=== PATIENT | male | born 1955 | race Caucasian/White ===

== ENCOUNTER → 2018-02-13 14:41 | Outpatient (CLI) | payer MEDICARE, SELFPAY ==
--- NOTE | 2018-02-13 14:52 | MR_ITS ---
MR knee RT wo con HISTORY: Knee pain with limited range of motion ITS.REASON: INTERNAL DERANGEMENT OF RIGHT KNEE ORDERING PHYSICIAN: Anni Hennessy MD PATIENT AGE: 62 years Comparison: None TECHNIQUE: Standard multiplanar multiecho sequences are performed without contrast. FINDINGS: The posterior cruciate ligament appears intact. The inferior aspect of the anterior cruciate ligament is not well delineated however, the fibers superiorly are correctly oriented. The collateral ligaments are intact. Patellar tendon and quadriceps tendon are also intact. There is some increase T2 signal of the patellar tendon proximally and distally suggesting tendinopathy/tendinosis. The lateral meniscus has an unremarkable appearance. There is a horizontal tear involving the body of the medial meniscus best detected on the coronal images. The anterior and posterior horns appear intact. There are mild tricompartmental osteoarthritic changes. The patellar cartilage is well preserved. There is a medium size knee joint effusion and there is a small amount of prepatellar edema. Small Osorio's cyst also noted. IMPRESSION: 1. Nondisplaced horizontal tear involves the body of the medial meniscus. The medial meniscus is slightly extruded medially. 2. Tricompartmental osteoarthritis with knee joint effusion. 3. Possible tear versus sprain of the inferior aspect of the anterior cruciate ligament
== END ==
PROVIDERS: PCP Family Medicine; Visit Provider Family Medicine
DX: M23.91 Unspecified internal derangement of right knee (principal)
CPT/HCPCS: 73721

== ENCOUNTER → 2018-06-14 09:21 | Outpatient (CLI) | payer MEDICARE, SELFPAY ==
--- NOTE | 2018-06-14 09:27 | XR_ITS ---
XR chest 2V HISTORY: Previous smoker ITS.REASON: HTN,COPD ORDERING PHYSICIAN: Anni Hennessy MD PATIENT AGE: 62 years COMPARISON: None FINDINGS: The cardiomediastinal silhouette and pulmonary vascularity are within normal limits. Atelectatic or fibrotic changes are present within the lingula. The remaining lungs are clear.. No acute bony abnormalities. IMPRESSION: Atelectatic or fibrotic changes in the lingula otherwise negative
== END ==
PROVIDERS: PCP Family Medicine; Visit Provider Family Medicine
DX: Z00.00 Encounter for general adult medical examination without abnormal findings (principal)
CPT/HCPCS: 71046

== ENCOUNTER 2018-09-04 08:00 | Outpatient (RCR) | payer MEDICARE, SELFPAY | END 2018-09-04 08:05 | disposition home or self-care (01) | LOC: PT 08:00 | PROVIDERS: Visit Provider Orthopaedic Surgery | DX: Z96.651 Presence of right artificial knee joint (principal) | CPT/HCPCS: 97010; 97014; 97016; 97110; 97140; 97163; 97164; G0283 ==

== ENCOUNTER 2019-09-24 14:07 | Emergency (ER) | payer MEDICARE, SELFPAY ==
[2019-09-24 14:20] VITALS: BP 137/78; PULSE 101; RESP 18; TEMP 36.7; O2SAT 97; BMI 41.5
--- NOTE | 2019-09-24 14:26 | XR_ITS ---
PROCEDURE: XR CHEST PORTABLE CLINICAL HISTORY: cough/respiratory symptoms COMPARISON: CXR2V XR chest 2V from 06/14/2018 FINDINGS: The cardiomediastinal silhouette and pulmonary vascularity are within normal limits. There are mild fibrotic changes in the left lung base. The remaining lungs are clear. No acute bony abnormalities. IMPRESSION: Left lower lobe fibrotic changes otherwise negative Dictated by: Lisandro Lanier MD 09/24/2019 14:57 Electronically signed by Lisandro Lanier MD in [place] 09/24/2019 14:57
--- NOTE | 2019-09-24 14:37 | HMH.COUGH ---
Cough Clinic HPI - History of Present Illness Complaint:: 3 days of sudden onset of malaise, fatigue, chest tightness. Some fevers and chills... has not been out much but has been to store... live alone. No rash, no GI issues. No change in smell or taste - cough is dry - no hemoptysis - feels some better today Onset (ago): day(s) Severity: moderate Home Medications: Home Medications Medication Instructions Recorded Confirmed Type Albuterol Sulfate [Albuterol HFA 1 - 2 puffs IH Q4-6H PRN 12/05/18 09/24/19 History Inhaler] Amlodipine Besylate [Amlodipine 10 mg PO DAILY 12/05/18 09/24/19 History 10mg Tab] Esomeprazole Magnesium [Nexium 20 mg PO DAILY 12/05/18 09/24/19 History 24Hr] Furosemide [Furosemide 20mg Tab] 20 mg PO DAILY 12/05/18 09/24/19 History Potassium Chloride [Micro-K 10mEq 10 meq PO DAILY 12/05/18 09/24/19 History cap] Umeclidinium Brm/Vilanterol Tr 1 inh IH DAILY 12/05/18 09/24/19 History [Anoro Ellipta 62.5-25 Mcg INH] lisinopriL [Lisinopril 10mg Tab] 10 mg PO DAILY 12/05/18 09/24/19 History Azithromycin [Zithromax 250mg 250 mg PO DIRECTED #6 tab 09/24/19 Rx tab] Cefdinir [Omnicef 300mg Capsule] 300 mg PO BID #14 cap 09/24/19 Rx predniSONE [Deltasone 20mg 20 mg PO BID 7 Days #14 tab 09/24/19 Rx tablet] Allergies/Adverse Reactions: Allergies Allergy/AdvReac Type Severity Reaction Status Date / Time Penicillins Allergy Verified 12/05/18 11:41 Cough Clinic Triage - Symptoms Fever History: Yes Chills: Yes Myalgia: Yes Nasal Drainage: No Sore Throat: Yes Productive Cough: No Non-productive Cough: Yes Ear or Sinus Pain: Yes Joint Pain: Yes Chest Pain: Yes Rash: No Shortness of Breath: Yes Nausea or Vomitting: No Headache: Yes Abdominal Pain: No Diarrhea: No - Exposure History Foreign Travel: No Direct Contact with COVID-19 Patient: No - Risk Factors Greater than 60 Years Old: Yes COPD: Yes Diabetes: No Heart Disease: No (htn) Home Oxygen Use: No Chronic Renal Disease: No Chronic Liver Disease: No Neurologic/Neurodevelopmental/intellectual disability: No Other Chronic Diseases: No Current Smoker: No Former Smoker: Yes (quit 18 months ago) Cough Clinic History I have reviewed the patient's past medical history: Yes Medical History: Reports:: Congestive Heart Failure, Chronic Obstructive Pulmonary Disease (COPD), Hypertension, Lung Disease Denies:: Diabetes Mellitus Type 1, Diabetes Mellitus Type 2, Internal Pacemaker, Seizures Other Medical History: Reports: Other. Denies: Blood Transfusion Reaction Other Surgeries: Yes: Other. No: Pacemaker Amputation: No Fractures: No - Social History Smoking Status: Never smoker Alcohol Intake: never Alcohol Intake Frequency:: other Substance Use Type: other Occupational Status: other Family Hx:: Unable to obtain ROS Obtained: Yes All systems reviewed & no additional complaints Cough Clinic Exam - General General appearance: alert, in no apparent distress - Head Head exam: atraumatic, normocephalic, normal inspection - Eye Eye exam: Present: normal appearance, PERRL, EOMI - ENT ENT exam: Present: normal exam, normal oropharynx, mucous membranes moist, TM's normal bilaterally, normal external ear exam - Neck Neck exam: Present: normal inspection, full ROM, trachea midline. Absent: meningismus, lymphadenopathy - Chest Chest inspection: Present: normal inspection, symmetric chest wall rise. Absent: tenderness - Respiratory Respiratory exam: Present: prolonged expiratory phase. Absent: respiratory distress - Expanded Respiratory Exam Location: Right: rhonchi, Upper: rhonchi, Lower: rhonchi - Cardiovascular Cardiovascular exam: Present: regular rate, normal rhythm. Absent: JVD - Extremities Exam Extremities exam: Present: normal inspection, full ROM, normal capillary refill. Absent: calf tenderness - Neurological Exam Neurological exam: Present: alert, orie
[2019-09-24 14:40] LABS: Eosinophils % 0.9 % (0.1-12.0); Hematocrit 39.6 % (42.0-52.0); Hemoglobin 14.7 g/dL (14.1-18.0); Lymphocytes % 48.1 % (10-50); Mean Corpuscular HGB Conc 37.2 g/dL (31.8-35.4); Mean Corpuscular Hemoglobin 32.4 pg (27.0-31.2); Mean Corpuscular Volume 87.2 fl (80-94); Mean Platelet Volume 6.8 fl (7.4-10.4); Monocytes % 9.9 % (1.7-9.3); Neutrophils % 40.1 % (37.0-80.0); Platelet Count 287 K/mm3 (142-424); Red Blood Count 4.54 M/mm3 (4.60-6.20); Red Cell Distribution Width 13.8 % (11.5-17.5); White Blood Count 8.7 K/mm3 (4.8-10.8)
[2019-09-24 14:41] LABS: Basophils # 0.1 K/mm3 (0-0.2); Eosinophils # 0.1 K/mm3 (0.0-0.4); Lymphocytes # 4.2 K/mm3 (0.7-4.5); Monocytes # 0.9 K/mm3 (0.1-1.0); Neutrophils # 3.5 K/mm3 (1.8-7.8)
[2019-09-24 15:00] VITALS: BP 137/74; PULSE 101; RESP 18; TEMP 36.7; O2SAT 97
[2019-09-25 16:19] LABS: Covid-19 Nasal PCR Sendout Lex NOT DETECTED
--- NOTE | 2019-09-25 16:45 | PC.NURSE ---
1635 dr. patel notified of negative covid-19 test results 1645 pt notified of negative covid-19 test results
== END 2019-09-24 15:06 | disposition home or self-care (01) ==
PROVIDERS: Emergency Provider Internal Medicine Adolescent Medicine; PCP Family Medicine
DX: J18.9 Pneumonia, unspecified organism (principal); J12.9 Viral pneumonia, unspecified; J44.9 Chronic obstructive pulmonary disease, unspecified; I10 Essential (primary) hypertension; I50.9 Heart failure, unspecified; Z79.899 Other long term (current) drug therapy
CPT/HCPCS: 36415; 71045; 85025; 87275; 87276; 99201; 99213; U0003

== ENCOUNTER → 2020-03-18 11:12 | Outpatient (CLI) | payer MEDICARE, SELFPAY ==
--- NOTE | 2020-03-18 11:19 | XR_ITS ---
PROCEDURE: XR FOOT LT MIN 3V CLINICAL INDICATION: LT FOOT PAIN,LT 5TH MEATARSAL COMPARISON: No exams were available for comparison FINDINGS: No fracture or dislocation. No lytic or blastic change. There is normal mineralization. There is mild deformity of the medial and lateral malleolus not well seen on these films of the foot probably posttraumatic in etiology. Consider follow-up films of the ankle for better evaluation. Otherwise the tarsal bones and metatarsals appear intact. There are 2 tiny bone fragments adjacent to the base of the 5th metatarsal 1 which may be a small accessory bone the other could be an old avulsion chip fracture. There is an accessory navicular bone and normal variation. There is an os trigonum as well. The plantar arch is normal. There are spurs of the calcaneus at the insertion of the Achilles tendon and plantar tendon. IMPRESSION: No acute findings. Suggest follow-up films of the ankle Dictated by: Dr. Almas Prado MD 03/18/2020 11:39 Dr. Almas Prado MD in [place] 03/18/2020 11:39
== END ==
PROVIDERS: PCP Family Medicine; Visit Provider Family Medicine
DX: M79.672 Pain in left foot (principal)
CPT/HCPCS: 73630

== ENCOUNTER 2020-04-13 11:13 | Emergency (ER) | payer MEDICARE, SELFPAY ==
--- NOTE | 2020-04-13 11:22 | ECG_ITS ---
APPROVED REPORT Exam: Resting ECG HR:68 bpm ECG Measurements Heart Rate 68 AXES GA 170 P 70 QRSd 104 QRS 74 QT 406 T 36 QTc 431 Conclusion Normal sinus rhythm Normal ECG Electronically signed by : Sean Remy, 04/14/2020 21:08:38
[2020-04-13 11:36] VITALS: BP 156/67; PULSE 72; RESP 18; O2SAT 97; BMI 42.3
--- NOTE | 2020-04-13 11:37 | HMH.EDGENADL ---
ED Disposition Clinical Impression: Vertigo, peripheral Qualifiers: Laterality: unspecified laterality Qualified Code(s): H81.399 - Other peripheral vertigo, unspecified ear Disposition: Home, Self-Care Condition on Discharge: Good Instructions: DI for Vertigo Additional Instructions: Meclizine, diazepam, and Zofran as prescribed. Be very careful when changing positions and standing after laying down, rise slowly and hold onto furniture or handy. Be very careful going up and down stairs. Return to the emergency room if worsening dizziness, vomiting, or any new symptoms such as visual changes or numbness or weakness of arms or legs. Follow-up with your primary care doctor tomorrow, call for appointment. Prescriptions: diazePAM [Diazepam 2mg tablets] 2 mg PO TID #15 tablet Transmission Status: Received by [id number] Meclizine HCl [Meclizine 25mg Tab] 25 mg PO TID #15 tab Transmission Status: Pending to [facility] Ondansetron [Zofran 4mg ODT] 4 mg PO TIDP PRN #10 tab.rapdis PRN Reason: Nausea And Vomiting Transmission Status: Pending to [facility] Referrals: Anni Hennessy MD [Primary Care Provider] - - Critical Care Critical Care Time: No Attestation: On , the high probability of a clinically significant, sudden or life threatening deterioration of the following system(s) required my full and direct attention, intervention and personal management. The time I documented below is in addition to time spent performing reported procedures but includes the following listed in this critical care notation. Medical Decision Making - Claudio Inquiry Pt receiving controlled substance: No Vital Signs: 04/13/20 11:36 04/13/20 11:58 04/13/20 12:52 Temperature Source Oral Pulse Rate [Right Brachial] 72 70 65 Respiratory Rate 18 Blood Pressure [Right Arm] 156/67 H 137/71 146/62 H Blood Pressure Mean [Right Arm] 96 93 90 Blood Pressure Source [Right Arm] Automatic Cuff Automatic Cuff Automatic Cuff Blood Pressure Position [Right Arm] Sitting Sitting Sitting 02 Sat by Pulse Oximetry 97 93 L 96 Oxygen Delivery Method Room Air Room Air Room Air 04/13/20 13:28 Temperature Source Pulse Rate [Right Brachial] 63 Respiratory Rate Blood Pressure [Right Arm] 142/69 H Blood Pressure Mean [Right Arm] 93 Blood Pressure Source [Right Arm] Automatic Cuff Blood Pressure Position [Right Arm] Sitting 02 Sat by Pulse Oximetry 98 Oxygen Delivery Method Room Air - Lab Data Lab results reviewed: Yes: I reviewed the patient's lab results. Lab Results 04/13/20 11:30: WBC 10.0, RBC 5.48, Hgb 15.9, Hct 47.7, MCV 87.0, MCH 29.0, MCHC 33.4, RDW 13.9, Plt Count 364, MPV 7.8, Neut % (Auto) 60.6, Lymph % (Auto) 32.7, Larue % (Auto) 6.0, Eos % (Auto) 0.3, Baso % (Auto) 0.4, Neut # (Auto) 6.1, Lymph # (Auto) 3.3, Larue # (Auto) 0.6, Eos # (Auto) 0.0, Baso # (Auto) 0.0 04/13/20 11:30: Sodium 140, Potassium 4.1, Chloride 104, Carbon Dioxide 27, Anion Gap 13.1, BUN 17, Creatinine 0.70, Estimated Creat Clear 72, Estimated GFR 114, Est GFR ( Amer) 138, Glucose 136 H, Calcium 9.1, Total Bilirubin 0.5, AST 38, ALT 67, Alkaline Phosphatase 65, Troponin I < 0.01, Total Protein 7.6, Albumin 4.4, Globulin 3.2, Albumin/Globulin Ratio 1.4 Result diagrams: 04/13/20 11:30 04/13/20 11:30 Orders (Tests/Meds): ED MEDICATIONS Generic Name Dose Route Start Last Admin Trade Name Freq PRN Reason Stop Dose Admin Diazepam 2 mg 04/13/20 14:26 Diazepam 10mg/2ml Syringe IV 04/13/20 14:27 ONCE ONE Discontinued Medications Generic Name Dose Route Start Last Admin Trade Name Freq PRN Reason Stop Dose Admin Sodium Chloride 1,000 mls @ 999 mls/hr 04/13/20 12:00 04/13/20 12:04 Sod Chlor 0.9% 1000ml Bag IV 04/13/20 13:00 999 mls/hr .Q1H1M JAMAR Administration Meclizine HCl 25 mg 04/13/20 11:48 04/13/20 12:03 Meclizine 25mg Tablet PO 04/13/20 11:49 25 mg ONCE ONE Administration
--- NOTE | 2020-04-13 11:46 | CT_ITS ---
PROCEDURE: CT HEAD/BRAIN WO CON CLINICAL INDICATION: vertigo COMPARISON: No exams were available for comparison TECHNIQUE: Axial images obtained. All CT scans at the facility use one or more dose reduction, viz: automated exposure control, ma/kV adjustment per patient size (including targeted exams where dose is matched to indication, i.e. head), or iterative reconstruction technique. FINDINGS: No midline shift, mass effect, intracranial hemorrhage, hydrocephalus, or extra-axial fluid collection is evident. Fissures are mildly prominent. The cortical sulci are prominent over the frontal lobes. The calvarium has an unremarkable appearance. No mastoid effusion. The internal auditory canals appear normal bilaterally. No sinus air-fluid level. IMPRESSION: Findings of mild age-appropriate cortical atrophy, no acute intracranial pathology noted Dictated by: Dr. Almas Prado MD 04/13/2020 12:51 Dr. lAmas Prado MD in [place] 04/13/2020 12:51
[2020-04-13 11:58] VITALS: BP 137/71; PULSE 70; O2SAT 93
[2020-04-13 11:58] LABS: Basophils % 0.4 % (0.1-2.0); Eosinophils % 0.3 % (0.1-12.0); Hematocrit 47.7 % (42.0-52.0); Hemoglobin 15.9 g/dL (14.1-18.0); Lymphocytes # 3.3 K/mm3 (0.7-4.5); Lymphocytes % 32.7 % (10-50); Mean Corpuscular HGB Conc 33.4 g/dL (31.8-35.4); Mean Platelet Volume 7.8 fl (7.4-10.4); Monocytes # 0.6 K/mm3 (0.1-1.0); Neutrophils # 6.1 K/mm3 (1.8-7.8); Neutrophils % 60.6 % (37.0-80.0); Platelet Count 364 K/mm3 (142-424); Red Blood Count 5.48 M/mm3 (4.60-6.20); Red Cell Distribution Width 13.9 % (11.5-17.5)
[2020-04-13 12:10] LABS: Alanine Aminotransferase 67 U/L (12-78); Albumin Level 4.4 g/dl (3.5-5.0); Albumin/Globulin Ratio 1.4 (1.1-1.8); Alkaline Phosphatase 65 U/L (38-126); Anion Gap 13.1 mEq/L (5-15); Aspartate Amino Transferase 38 U/L (17-59); Bilirubin,Total 0.5 mg/dl (0.2-1.3); Blood Urea Nitrogen 17 mg/dl (9-20); Calcium 9.1 mg/dl (8.4-10.2); Carbon Dioxide 27 mmol/L (22.0-30.0); Chloride 104 mmol/L (98-107); Creatinine Clearance Estimated 72 mL/min (50-200); Estimated Glomerular Filt Rate 114 ml/min (>60); GFR (African American) 138 ML/MIN (>60); Globulin 3.2 g/dL (1.3-3.2); Glucose 136 mg/dl (74-100); Potassium 4.1 mmoL/L (3.5-5.1); Sodium 140 mmol/L (136-145); Total Protein,Serum 7.6 g/dl (6.3-8.2)
[2020-04-13 12:30] LABS: Troponin I < 0.01 ng/ml (0.00-0.034)
--- NOTE | 2020-04-13 12:44 | PC.NURSE ---
pt returned from rad.
[2020-04-13 12:52] VITALS: BP 146/62; PULSE 65; O2SAT 96
[2020-04-13 13:28] VITALS: BP 142/69; PULSE 63; O2SAT 98
--- NOTE | 2020-04-13 14:15 | PC.NURSE ---
pt ambulated to the bathroom pt feels much but still has some dizziness nausea is gone
[2020-04-13 14:33] VITALS: BP 143/82; PULSE 78; O2SAT 96
[2020-04-13 14:35] VITALS: BP 143/82; PULSE 75; RESP 18; TEMP 36.6; O2SAT 98
== END 2020-04-13 14:45 | disposition home or self-care (01) ==
PROVIDERS: Emergency Provider Emergency Medicine; PCP Family Medicine
DX: H81.399 Other peripheral vertigo, unspecified ear (principal); R73.9 Hyperglycemia, unspecified; I10 Essential (primary) hypertension; J44.9 Chronic obstructive pulmonary disease, unspecified; Z88.0 Allergy status to penicillin; Z79.899 Other long term (current) drug therapy
CPT/HCPCS: 70450; 80053; 84484; 85025; 93005; 96365; 96375; 99283; J2405

== ENCOUNTER → 2020-07-03 08:56 | Outpatient (POV) | payer MEDICARE, SELFPAY | PROVIDERS: Visit Provider Audiologist | DX: Z00.00 Encounter for general adult medical examination without abnormal findings (principal) ==

== ENCOUNTER 2023-12-14 06:27 | Outpatient (CLI) | payer MEDICARE, SELFPAY ==
--- NOTE | 2023-12-14 07:23 | CT_ITS ---
FINAL REPORT TECHNIQUE: Thin section axial images were obtained from skull base to vertex without contrast. Coronal reconstruction images were obtained from the axial data. Exam was performed using dose reduction technique. CLINICAL HISTORY: MIGRAINES FINDINGS: There is no mass effect or midline shift. There is no hydrocephalus. There is no intracranial hemorrhage. The posterior fossa is without acute abnormality. The basilar cisterns are preserved. The soft tissues are without acute abnormality. No acute osseous abnormality is identified. IMPRESSION: No acute intracranial abnormality. Authenticated and [facility]
== END 2023-12-14 23:59 | disposition home or self-care (01) ==
LOC: RAD 06:29
PROVIDERS: PCP Family Medicine; Visit Provider Nurse Practitioner
DX: G43.909 Migraine, unspecified, not intractable, without status migrainosus (principal)
CPT/HCPCS: 70450

== ENCOUNTER 2024-05-07 11:43 | Outpatient (CLI) | payer MEDICARE, SELFPAY | END 2024-05-07 23:59 | disposition home or self-care (01) | LOC: LAB.DROPOF 05-08 14:00 | PROVIDERS: PCP Family Medicine; Visit Provider Family Medicine | DX: R33.9 Retention of urine, unspecified (principal) | CPT/HCPCS: 87086 ==

== ENCOUNTER 2024-06-15 08:49 | Outpatient (CLI) | payer MEDICARE, SELFPAY ==
[2024-06-15 16:49] LABS: Basophils % 0.3 % (0.1-2.0); Eosinophils % 0.2 % (0.1-12.0); Hematocrit 45.3 % (42.0-52.0); Hemoglobin 14.5 g/dL (14.1-18.0); Lymphocytes # 2.3 K/mm3 (0.7-4.5); Lymphocytes % 25.3 % (10-50); Mean Corpuscular Hemoglobin 28.7 pg (27.0-31.2); Mean Corpuscular Volume 89.5 fl (80-94); Monocytes # 0.8 K/mm3 (0.1-1.0); Monocytes % 8.6 % (1.7-9.3); Neutrophils # 5.9 K/mm3 (1.8-7.8); Neutrophils % 65.2 % (37.0-80.0); Platelet Count 334 K/mm3 (142-424); Red Blood Count 5.06 M/mm3 (4.60-6.20); Red Cell Distribution Width 13.8 % (11.5-17.5); White Blood Count 9.1 K/mm3 (4.8-10.8)
[2024-06-15 17:28] LABS: Alanine Aminotransferase 55 U/L (12-78); Albumin Level 4.7 g/dl (3.5-5.0); Albumin/Globulin Ratio 1.9 (1.1-1.8); Alkaline Phosphatase 57 U/L (38-126); Anion Gap 13.7 mEq/L (5-15); Aspartate Amino Transferase 48 U/L (17-59); Bilirubin,Total 0.5 mg/dl (0.2-1.3); Blood Urea Nitrogen 22 mg/dl (9-20); Calcium 9.5 mg/dl (8.4-10.2); Carbon Dioxide 26 mmol/L (22.0-30.0); Chloride 101 mmol/L (98-107); Chol/HDL Ratio 2.3 (1-3.5); Cholesterol 128 mg/dl (140-200); Estimated Glomerular Filt Rate 75 ml/min (>60); GFR (African American) 90 ML/MIN (>60); Globulin 2.5 g/dL (1.3-3.2); Glucose 87 mg/dl (74-100); HDL Cholesterol 55 mg/dl (40-60); Potassium 4.7 mmoL/L (3.5-5.1); Sodium 136 mmol/L (136-145); Total Protein,Serum 7.2 g/dl (6.3-8.2); Triglycerides 65 mg/dl (30-150); VLDL Cholesterol 13 mg/dL (0-40)
[2024-06-15 17:31] LABS: Hemoglobin A1C 5.3 % (4.0-6.0)
[2024-06-15 17:39] LABS: Direct LDL Cholesterol 58.88 mg/dL (100-129)
[2024-06-15 17:59] LABS: Prostate Specific Ag Screen 0.7 ng/ml (0.0-4.0); Thyroid Stimulating Hormone 1.84 uIU/mL (0.465-4.68)
[2024-06-15 18:09] LABS: HIV Combo NEGATIVE (Negative)
[2024-06-15 18:58] LABS: Hepatitis C Ab Qual. W/ RFX NEGATIVE (Negative)
[2024-06-25 13:13] LABS: Free Testosterone (Direct) 3.6 pg/mL (6.6-18.1); Testosterone, Total, LC/MS 290.5 ng/dL (264.0-916.0)
== END 2024-06-15 23:59 | disposition home or self-care (01) ==
LOC: LAB.DROPOF 06-18 08:50
PROVIDERS: PCP Family Medicine; Visit Provider Family Medicine
DX: I10 Essential (primary) hypertension (principal); Z11.4 Encounter for screening for human immunodeficiency virus [HIV]; Z11.59 Encounter for screening for other viral diseases; R79.89 Other specified abnormal findings of blood chemistry; Z12.5 Encounter for screening for malignant neoplasm of prostate
CPT/HCPCS: 80053; 80061; 83036; 84443; 85025; 86803; 87389; G0103

== ENCOUNTER 2024-07-30 10:50 | Outpatient (CLI) | payer MEDICARE, SELFPAY ==
--- NOTE | 2024-07-30 10:53 | XR_ITS ---
FINAL REPORT CLINICAL HISTORY: medial knee pain COMPARISON: None FINDINGS: LEFT KNEE: 3 images of the left knee were obtained. There is no evidence of fracture or dislocation. Mild tricompartment degenerative change is present. No joint effusion is noted. There is no soft tissue abnormality identified. IMPRESSION: Mild tricompartment degenerative change without acute fracture or joint effusion. Reviewed, Interpreted and Dictated by Denilson Chan MD Transcribed by Yamile Suazo Authenticated and [facility]
== END 2024-07-30 23:59 | disposition home or self-care (01) ==
LOC: RAD 10:51
PROVIDERS: PCP Family Medicine; Visit Provider Family Medicine
DX: M25.562 Pain in left knee (principal)
CPT/HCPCS: 73562

== ENCOUNTER 2025-01-17 15:00 | Outpatient (RCR) | payer MEDICARE, SELFPAY | END 2025-01-17 23:59 | disposition home or self-care (01) | LOC: PT.CARL 15:00 | PROVIDERS: PCP Family Medicine; Visit Provider Orthopaedic Surgery | DX: S83.242A Other tear of medial meniscus, current injury, left knee, initial encounter (principal) | CPT/HCPCS: 97110; 97161 ==

== ENCOUNTER 2025-02-07 06:53 | Outpatient (CLI) | payer MEDICARE, SELFPAY ==
--- OUTSIDE RECORDS SUMMARY | 2024-12-29 05:00 | XMS_ITS ---
Author Organization [facility] Address [address] [place] [address] Phone [phone] Care Team Providers Care Prop Worker Name Role Phone Cristiane Osorio Unavailable [phone] Migration, Provider Unavailable Unavailable REASON FOR VISIT EMR-Mo Encounters Encounter Location Date Provider Diagnosis [facility] [address] [place] [address] 12/29/2024 Provider Migration Plan Of Treatment No Information Progress Notes * MARTA RAZODOB:1955 (69 yo M)Acc No.[id number]:12/29/2024 Patient: MARTA LAZO :1955 A ge:69 Y S ex:Male Address:[address] [place] [address], [id number] Subjective: * Chief Complaints: * E MR-Mo * * Date:
--- OUTSIDE RECORDS SUMMARY | 2024-12-30 05:00 | XMS_ITS ---
Author Organization [facility] Address [address] [place] [address] Phone [phone] Care Team Providers Care Sales Appointment Coordinator Name Role Phone Cristiane Osorio Unavailable [phone] Migration, Provider Unavailable Unavailable REASON FOR VISIT E[facility] Medications Medication SIG (Take, Route, Frequency, Duration) Notes Start Date End Date Status Mupirocin 2% Ointment External Active Lisinopril 10 MG Tablet Oral Active Potassium Chloride ER 10 MEQ Tablet Extended Release Oral Active Egixrqdz-Rdlqmbzxs-VF 3.5-28233-9 Suspension Otic Activ e Travel Sickness 25 mg Tablet Chewable Oral *Reorder from [employer] for eRx and Interaction Alerts* Active predniSONE 20 MG Tablet Oral Active amLODIPine Besylate 10 MG Tablet Oral Active Cefdinir 300 MG Capsule Oral Active Cephalexin 500 MG Capsule Oral Active Ondansetron 4 MG Tablet Disintegrating Oral Active Furosemide 20 MG Tablet Oral Active Azithromycin 250 MG Tablet Oral Active diazePAM 2 MG Tablet Oral Active Social History Social History Additional Details Category Social Info Options Details Migrated Social History Migrated Social History Tobacco Years: Unknown if ever smoked 04/23/2020 Encounters Encounter Location Date Provider Diagnosis [address] [address] 12/30/2024 Provider Migration Plan Of Treatment No Information Progress Notes * DUNG MARTADOB:1955 (69 yo M)Acc No.[id number]:12/30/2024 Patient: MARTA LAZO :1955 A ge:69 Y S ex:Male Address:[address] [place] [address], [address] Subjective: * Chief Complaints: * E MR-Mo * Social History: M igrated Social History: M igrated Social History: Tobacco Years: Unknown if ever smoked 04/23/2020. * Medications: T akingamLODIPine Besylate 10 MG Tablet Oral Cefdinir 300 MG Capsule Oral Cephalexin 500 MG Capsule Oral Ondansetron 4 MG Tablet Disintegrating Oral Mupirocin 2% Ointment External Azithromycin 250 MG Tablet Oral Lisinopril 10 MG Tablet Oral Potassium Chloride ER 10 MEQ Tablet Extended Release Oral diazePAM 2 MG Tablet Oral Furosemide 20 MG Tablet Oral predniSONE 20 MG Tablet Oral Bnqqboul-Tofohaopn-YN 3.502955-7 Suspension Otic Travel Sickness 25 mg Tablet Chewable Oral , Notes to Pharmacist: *Reorder from [facility] for eRx and Interaction Alerts*Taking amLODIPine Besylate 10 MG Tablet Oral Taking Cefdinir 300 MG Capsule Oral Taking Cephalexin 500 MG Capsule Oral Taking Ondansetron 4 MG Tablet Disintegrating Oral Taking Mupirocin 2% Ointment External Taking Azithromycin 250 MG Tablet Oral Taking Lisinopril 10 MG Tablet Oral Taking Potassium Chloride ER 10 MEQ Tablet Extended Release Oral Taking diazePAM 2 MG Tablet Oral Taking Furosemide 20 MG Tablet Oral Taking predniSONE 20 MG Tablet Oral Taking Ghnzlenk-Qrwxkmujx-FS 3.518924-9 Suspension Otic Taking Travel Sickness 25 mg Tablet Chewable Oral , Notes to Pharmacist: *Reorder from [facility] for eRx and Interaction Alerts* * * Date:
--- OUTSIDE RECORDS SUMMARY | 2025-01-15 09:43 | XMS_ITS | CCD ---
Author Name Lizzy Skinner NP Address [address] [place] [address] Phone Organization [facility] Phone Care Team Providers Care Grape Grower Name Role Phone Lizzy Skinner NP Primary Care Provider Unavaila ble Unavailable Chronic Care Management Unavaila ble Summary Purpose DataExchange Insurance Providers Payer name Policy type / Coverage type Covered republican ID Effective Begin Date Effective End Date [facility] [id number] Unknown Unknown Family history Father Diagnosis Age At Onset CAD (Coronary Artery Disease) Unknown Mother Diagnosis Age At Onset Diabetes Unknown Social History Social History Element Codes Description Effec tive Dates Marital status Unknown 10/09/2024 Number of children Unknown 3 Number of children in household Unknown 0 10/09/2024 Number of adults in household Unknown 2 10/09/2024 Education level Unknown Some College 10/09/2024 Employment Unknown Retired from Contract[employer] 09/27 Tobacco history Unknown Former User 10/09/[address]: [id number] Never drinks alco hol 10/09/2024 Illegal/Recreational drug history Unknown *Has never used illegal/recreational drugs 10/09/2024 Allergies, Adverse Reactions, Alerts Substance Reaction Codes Entered Date Inactivated Date Status PENICILLINS *not specified Unknown 10/09/2024 No Inactive Date Active *No known food allergies Unknown 10/09/2024 No I nactive Date Active *No known environmental allergies Unknown 10/09/2024 No Inactive Date Active Problems Condition Codes Effective Dates Condition St atus Chronic heart failure with p reserved ejection fraction (HFpEF) ICD-10: I50.32 ICD-9: 428.32 10/09/2024 Active Chronic heart failure with p reserved ejection fraction (HFpEF) ICD-10: I50.32 11/15/2022 Active Chronic pain of both knees ICD-10: M25.5 61 ICD-9: 719.46 10/09/2024 Active 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 ICD-10: I25.119 05/27/2022 Active Encounter for general adult medical examination without abnormal findings ICD-10: Z00.00 ICD-9: V70.9 10/09/2024 Active Hyperlipidemia LDL goal <70 ICD-10: E78.5 11/15/2022 Active Male hypogonadism ICD-10: E29.1 04/02/2024 Active Obstructive sleep apnea, adult ICD-10: G47.33 03/15/20 24 Active Other chronic pain ICD-10: G89.29 10/09/2024 Active Other emphysema ICD-10: J43.8 ICD-9: 492.8 10/09/2024 Active Other emphysema ICD-10: J43.8 09/07/2022 Active Pain in left knee ICD-10: M25.562 10/09/2024 Active Pain in right knee ICD-10: M25.561 10/09/2024 Active Primary hypertension ICD-10: I10 ICD-9: 401.9 10/09/2024 Active Primary hypertension ICD-10: I10 05/27/2022 Active Medications Medication Codes Instructions Start Date Stop Date Status Fill Instructions Anoro Ellipta 62.5 mcg-25 mcg/actuation powder for inhalation RxNorm: 5334841 Take 1 Puff(s) Inhalation every day 5 01/02/20 26 Active lisinopril (PRINIVIL,ZESTRIL ) 20 MG tablet RxNorm: 169319 Take 1 Tablet(s) Oral every day 5 No Stop Date Active atorvastatin 20 mg tablet RxNorm: 682014 Take 1 Tablet(s) Oral every night at bedtime 5 01/02/20 26 Active furosemide (LASIX) 40 MG tablet RxNorm: 897281 Take 1 Tablet(s) Oral every day 5 No Stop Date Active sildenafil (VIAGRA) 50 MG tablet RxNorm: 491860 Take 1 Tablet(s) Oral every day as needed 5 No Stop Date Active sildenafil (VIAGRA) 50 MG tablet RxNorm: 379346 Take 1 Tablet(s) Oral every day as needed 5 09/13/19 25 Inactive furosemide (LASIX) 40 MG tablet RxNorm: 536295 Take 1 Tablet(s) Oral every day 5 09/26/19 25 Inactive atorvastatin (LIPITOR) 40 MG tablet RxNorm: 591826 TAKE 1 TABLET BY MOUTH ONCE DAILY AT NIGHT 5 No Stop Date Active lisinopril (PRINIVIL,ZESTRIL ) 20 MG tablet RxNorm: 054196 Take 1 Tablet(s) Oral every day 4 10/10/19 25 Inactive betamethasone valerate (VALISONE) 0.1 % ointment RxNorm: 493992 Apply 1 Application topically to the appropriate area as directed 2 (Two) Times a Day. 4 No Stop Date Active potassium chloride 10 MEQ CR tablet RxNorm: 415408 Take 1 Tablet(s) Oral every day . 4 No Stop Date Active amLODIPine (NORVASC) 10 MG tablet RxNorm: 328027 Take 1 Tablet(s) Oral every day . 4 No Stop Date Active nitroglycerin (NITROSTAT) 0.4 MG SL tablet RxNorm: 491322 Place 1 tablet under the tongue Every 5 (Five) Minutes As Needed for Chest Pain. Take no more than 3 doses in 15 minutes. 4 No Stop Date Active albuterol sulfate HFA 108 (90 Base) MCG/ACT inhaler RxNorm: 3280926 Inhale 2 puffs As Needed for Wheezing. 3 No Stop Date Active Medication Administered No Medication Administered data Results Observation Observation Code Item Item Code Result Date Service Location Hemoccult Screening Immunoassay G0328 Fecal Occult Blood Test (FOBT) Screening 43965-6 SEE COMMENT 11/14/19 [facility] [address] [place] [address] Procedures Procedure Codes Date Functional Status Assessed CPT-4: 1170F 10/09 MED LIST DOCD IN [facility] CPT-4: 1159F 10/09/2024 RVW MEDS BY RX/DR IN [facility] CPT-4: 1160F 2024 Screening for clinical depre ssion is negative, follow-up plan not required CPT-4: G8510 10/09/2024 Most recent systolic blood pressure 130 to 139 mm CPT-4: 3075F 10/09/2024 Most recent diastolic blood pressure 80-89 mm hg CPT-4: 3079F 10/09/2024 Fecal Occult Blood Test (FOBT) Screening CPT-4: G0328 Unknown Vital Signs Date Vital 10/09/2024 Blood Pressure 1: 138/80 Code: 8480-6 BMI: 39.2 Code: 33080-9 Heart Rate 1: 103 bpm Height: 5'7 Code: 8302-2 Respiratory Rate: 16 bpm SpO2: 96% Temperature: 36.9 (C) / 98.4 (F) Weight: 250 lbs Code: 09230-6 Reason For Visit Reason For Visit Effective Dates Notes new patient welcome visit 10/09/2024 Encounters Encounter Performer Location Location Address Codes Date ([address]) Home or Residence Visit BPM ARCHITECT - Moderate Level, 60 mins Diagnosis: Encounter for general adult medical examination without abnormal findings[ICD10: Z00.00] Diagnosis: Chronic heart failure with preserved ejection fraction (HFpEF)[ICD10: I50.32] Diagnosis: Primary hypertension[ICD10 : I10] Diagnosis: Other emphysema[ICD10: J43.8] Diagnosis: Chronic pain of both knees[ICD10: M25.561] Diagnosis: Pain in right knee[ICD10: M25.561] Diagnosis: Pain in left knee[ICD10: M25.562] Diagnosis: Other chronic pain[ICD10: G89.29] Lizzy Skinner [place] Office [address] [facility] [address] [place] [address] CPT-4: 13641 10/09/2024 Plan of Care Planned Activity Notes Codes Status Date Visit Plan: This is a pleasant [age] year old male that presents to establish care today. Patient reports that he has a history of three heart attacks in the past. He also had lung cancer int he past and is in remission. He has been cancer free for about seven years he says. He has not drank or smoked in seven years as well. States that he has a bad knee. He sees orthopedic who has been working on his knee with injections and some pain control. He is able to ambulate without any issues. He tries to work and do things to keep busy. States he is overweight currently and is trying to loose some pounds. He went on a cruise recently and all he did was eat. States that where he gained all his weight. States that he has not had any issues with heart failure. States his blood pressure usually is doing good when he checks it. States he does not check it regular but when he does it is in the normal range. As long as he uses his inhaler he is okay. States he does not follow a cardiac diet. He does like to eat out a few times a week. Z00.00-V70.9 Encounter for general adult medical examination without abnormal findings I50.32-428.32 Chronic heart failure with preserved ejection fraction (HFpEF) Continue Lasix I10-401.9 Primary hypertension Continue Amlodipine J43.8-492.8 Other emphysema Continue Anoro M25.561-719.46 Chronic pain of both knees M25.561- Pain in right knee M25.562- Pain in left knee G89.29- Other chronic pain Follow with Orthopedic We did talk for a while about his diet. We talked about making sure to limit the sodium intake. We talked about how this could help his blood pressure. He will continue all his medications as prescribed. We will follow up with him in one month for a recheck. Patient was encouraged to call us before his next visit if needed. Patient verbalized understanding and agreeable to plan of care. 10/09/2024 Patient Education: Patient Medication Summary Completed 10/09/2024 Patient Education: Obesity Completed 10/09/2024 Instructions Comment Date Please watch your sodium int denny. 1500mg a day. This is a pleasant 69 year old male that presents to establish care today. Patient reports that he has a history of three heart attacks in the past. He also had lung cancer int he past and is in remission. He has been cancer free for about seven years he says. He has not drank or smoked in seven years as well. States that he has a bad knee. He sees orthopedic who has been working on his knee with injections and some pain control. He is able to ambulate without any issues. He tries to work and do things to keep busy. States he is overweight currently and is trying to loose some pounds. He went on a cruise recently and all he did was eat. States that where he gained all his weight. States that he has not had any issues with heart failure. States his blood pressure usually is doing good when he checks it. States he does not check it regular but when he does it is in the normal range. As long as he uses his inhaler he is okay. States he does not follow a cardiac diet. He does like to eat out a few times a week. Z00.00-V70.9 Encounter for general adult medical examination without abnormal findings I50.32-428.32 Chronic heart failure with preserved ejection fraction (HFpEF) Continue Lasix I10-401.9 Primary hypertension Continue Amlodipine J43.8-492.8 Other emphysema Continue Anoro M25.561-719.46 Chronic pain of both knees M25.561- Pain in right knee M25.562- Pain in left knee G89.29- Other chronic pain Follow with Orthopedic We did talk for a while about his diet. We talked about making sure to limit the sodium intake. We talked about how this could help his blood pressure. He will continue all his medications as prescribed. We will follow up with him in one month for a recheck. Patient was encouraged to call us before his next visit if needed. Patient verbalized understanding and agreeable to plan of care. 10/09/2024 Medical Equipment No Medical Equipment data Advance Directives No Advance Directive data
--- OUTSIDE RECORDS SUMMARY | 2025-02-07 06:56 | XMS_ITS | Encounter Summary ---
Author Organization [employer] ([place], [place], [place], [place]) Address [address] [place] [address] Care Team Providers Care Hearings Reporter Name Role Phone Unavailable Primary Care Provider Unavailabl e Encounter Details Date Type Department Care Team (Late st Contact Info) Description 07/05/2018 Transcribed Document [facility] Radiology [address] [place] [address] Provider, Jaswinder Zarco MD Social History Tobacco Use Types Packs/Day Years Used Date Smoking Tobacco: Never Assessed Sex and Gender Information Value Date Recorded Sex Assigned at Male 11/24/2021 8:26 PM CDT Legal Sex Male 8:26 PM CDT Gender Identity Male 11/24/2021 8:26 PM CDT Sexual Orientation Not on file documented as of this encounter Miscellaneous Notes * Cerner Conversion Note - [facility] Haroldo ProviderMD - 07/05/2018 6:15 PM EST [facility] [place] [address] Patient Copy Patient Information: Name: MARTA RAZO Current Date: 07/05/2018 17:15:18 : 1955 Patient Address: [address] [address] Patient Attending Physician: BRIDGETTE ARTHUR MD-INT Primary Care Provider: EDITH LUONG MD Primary Care Provider Discharge Diagnosis: Weight on Admission: 282 lb, 0 oz Comment: Discharge Instructions: Medical Equipment for Home Use: [employer] [facility] [phone] Home Health Services: [facility] [phone] Immunizations Documented During Stay: No Immunizations Found Heart Failure Discharge Instructions (if any): Stroke Related Discharge Instructions (if any): Warfarin Related Discharge Instructions (if any): Final Medication List: Other Medications albuterol (ProAir HFA 90 mcg/inh inhalation aerosol) 1 Puff(s) Inhalation Four Times A Day as needed as needed for wheezing. amLODIPine (amLODIPine 10 mg oral tablet) 1 Tablet(s) Oral Every Day. esomeprazole (NexIUM 40 mg oral delayed release capsule) 1 Capsule(s) Oral Two Times A Day as needed Indigestion. furosemide (Lasix 20 mg oral tablet) 1 Tablet(s) Oral Every Day. potassium chloride (potassium chloride 20 mEq oral tablet, extended release) 1 Tablet(s) Oral Every Day. tiotropium (Spiriva 18 mcg inhalation capsule) 1 Capsule(s) Inhalation Every Day. umeclidinium-vilanterol (Anoro Ellipta 62.5 mcg-25 mcg/inh inhalation powder) 1 Puff(s) Inhalation Every Day. Patient Allergies: penicillin Medication Instructions: Take your medications faithfully. Do NOT skip medication. Do NOT stop taking medications without the direction of a physician. Carry a list of your medications with you at all times, and take this medication list with you to your first follow up visit. Report any side effects. Avoid herbal remedies unless discussed with your physician. As part of your treatment plan, your physician may have prescribed a limited course of a controlled substance. This medication may be given to help people with moderate or severe pain or for other medical conditions, but there are risks involved with treatment. Common side effects may include nausea, constipation, drowsiness, sweating, itching, dry mouth, and rash. More serious side effects may include cognitive and motor impairment, like problems with thinking, concentrating, alertness, and movement (e.g. slowed reflexes), and driving and operating heavy machinery can be dangerous. It is important for you to talk to your physician if you have these side effects or questions. These controlled substances can produce physical dependence and be habit-forming if taken for an extended period of time, which means that the body has gotten used to them and may experience withdrawal symptoms if they are abruptly stopped. Withdrawal symptoms can include runny nose, sweating, goose bumps, diarrhea, abdominal cramping, rapid heartbeat, difficulty sleeping, and nervousness. CIGARETTE SMOKING: The facts are clear, cigarette smoking will shorten your life. Smoking can cause many illnesses along the way. As a healthcare provider, we recommend that you stop smoking. Assistance with quitting is available by contacting 3-554-GCOE-NOW. This is a free resource providing counseling, support, and referral. Or you may contact your personal physician. 4 WAYS TO GET AHEAD OF SEPSIS SEPSIS is a MEDICAL EMERGENCY. Time matters! Infections put you and your family at risk for a life-threatening condition called sepsis. Sepsis is the body???s extreme response to an infection. It is life-threatening, and without timely treatment, sepsis can rapidly lead to tissue damage, organ failure, and . Sepsis happens when an infection you already have???in your skin, lungs, urinary tract or somewhere else???triggers a chain reaction throughout your body. 1 PREVENT INFECTIONS Take good care of chronic conditions. Talk to your doctor about getting the recommended vaccines. 2 PRACTICE GOOD HYGIENE Wash your hands frequently. Keep cuts or open sores clean and covered until they are healed. 3 KNOW THE SYMPTOMS Confusion or disorientation Shortness of breath High heart rate Fever, shivering, or feeling very cold Extreme pain or discomfort Clammy or sweaty skin 4 ACT FAST Get medical care IMMEDIATELY if you suspect sepsis or if you have an infection that???s not getting better or is getting worse. To learn more about sepsis and how to prevent infections, visit www.cdc.gov/sepsis. STROKE is an EMERGENCY Every Minute Counts ACT F.A.S.T! FACE ?? Facial droop ?? Uneven smile ARM ?? Arm numbness ?? Arm weakness SPEECH ?? Slurred speech ?? Difficulty speaking or understanding TIME ?? Call 911 and get to the hospital immediately Have the ambulance go to the nearest stroke center. STROKE Risk Factors High blood pressure High cholesterol Heart Disease Diabetes Smoking Heavy alcohol use Physical inactivity and obesity Atrial Fibrillation (irregular heartbeat) Family history of stroke Reminder: Be sure to sign up for the [employer] patient portal, which gives you 20/12 access to your medical information ??? including these discharge instructions ??? using your computer, smartphone, or tablet. Just go to [employer] to get started. Questions? Call . [facility] would like to thank you for allowing us to assist you with your healthcare needs. DUNG Mcdaniels ROBERT WAYNE, (or parts counter representative) have received the above patient education materials/instructions and have verbalized understanding: Patient Signature _ Date/Time Patient Professor Of Mathematics Signature (if needed) Date/Time Clinician/Hospital Professor Of Mathematics Signature (if needed) Date/Time Electronically signed by Jaswinder Gilbert Conversion Supervisor [employer]ing [employer] Cerner at 10/20/2022 12:34 PM CDT documented in this encounter Plan of Treatment Not on file documented as of this encounter Visit Diagnoses Not on filedocumented in this encounter
--- OUTSIDE RECORDS SUMMARY | 2025-02-07 06:56 | XMS_ITS | Encounter Summary ---
Author Organization [employer] ([place], [place], [place], [place]) Address [address] [place] [address] Care Team Providers Care Online Project Manager Name Role Phone Unavailable Primary Care Provider Unavailabl e Encounter Details Date Type Department Care Team (Late st Contact Info) Description 07/05/2018 Transcribed Document [facility] Radiology [address] [place] [address] Provider, Jaswinder Zarco MD Social [...] Miscellaneous Notes * Cerner Conversion Note - [facility] Haroldo ProviderMD - 07/05/2018 1:37 PM EST [facility] Main OR PreOp Summary Primary Physician: YESSENIA VILLAGOMEZ JR, JR, MD-ORT Finalized Date/Time: 07/05/18 17:51:21 Pt. Name: MARTA RAZOO.B./Sex: 1955 Male Med Rec #: [id number] Physician: BRIDGETTE ARTHUR MD-INT Financial #: [id number] Pt. Type: O Room/Bed: [facility]/ Admit/Disch: 07/05/18 04:47:00 - Institution: [facility] PreOp Case Times Entry 1 In Preop 07/05/18 07:20:00 Ready for Holding n/a Room Patient Ready for 07/05/18 08:58:00 Surgery Patient Out of Preop 07/05/18 11:58:00 Patient Out of n/a Holding Room Last Modified By: JOSE NY RN 07/05/18 17:51:17 [facility] PreOp Case Times Audit 07/05/18 17:51:17 Railroad Shop Inspector: [email or web address] Modifier: FLOYDSF <+> 1 In Preop <+> 1 Patient Ready for Surgery Finalized By: JOSE NY, RN Document Signatures Signed By: JOSE NY RN 07/05/18 17:51 Electronically signed by Ofelia [facility] Conversion Manufacturing Engineering Technician Cerner at 10/20/2022 12:34 PM CDT documented in this encounter Plan of Treatment Not on file documented as of this encounter Visit Diagnoses Not on filedocumented in this encounter
--- OUTSIDE RECORDS SUMMARY | 2025-02-07 06:56 | XMS_ITS | Encounter Summary ---
Author Organization [facility] ([place], [place], [place], [place]) Address [address] [place] [address] Care Team Providers Care Tabber Name Role Phone Unavailable Primary Care Provider Unavailabl e Encounter Details Date Type Department Care Team (Late st Contact Info) Description 07/05/2018 Transcribed Document [facility] Radiology [address] [place] [address] Provider, Jaswinder Zarco MD Social [...] Miscellaneous Notes * Cerner Conversion Note - [facility] Haroldo ProviderMD - 07/05/2018 9:23 PM EST [facility] [address] , [place] [address] Patient Copy Patient Information: Name: MARTA RAZO Current Date: 07/05/2018 20:23:46 : 1955 Patient Address: [address] [facility] [facility] [address] Patient Attending Physician: BRIDGETTE ARTHUR MD-INT Primary Care Provider: EDITH LUONG MD Primary Care Provider Discharge Diagnosis: obstructive sleep apnea; COPD (chronic obstructive pulmonary disease); Hypertension; Morbid obesity with BMI of 40.0-44.9, adult; Status post unicompartmental knee replacement, right; Unilateral primary osteoarthritis, right knee Weight on Admission: 282 lb, 0 oz Comment: Follow-up Instructions: With: Address: When: YESSENIA VILLAGOMEZ [address] [place], [place] [id number] [employer] ([employer] In 13 days 07/18/2018 Comments: Appointment has been made Discharge Instructions: Medical Equipment for Home Use: [facility] [phone] Home Health Services: [facility] [phone] Immunizations Documented During Stay: No Immunizations Found Heart Failure Discharge Instructions (if any): Daily Weight: Weigh yourself daily at the same time and record,Contact doctor if you gain 3 pounds overnight or 5 pounds in 1 week,Take weight log to doctor visits Heart Failure Activity: It is important to keep as active as you can and pace yourself with rest periods Smoking/Tobacco Use: Do not smoke, Smoking cessation phone number When to Call the Doctor: Increased weight of 3 pounds or more in 1 day or 5 pounds in 1 week, Increased cough, extreme tiredness, Increased shortness of breath, Having to prop yourself up in bed with pillows to breathe easier, Chest pain, Feeling bloated, full or nauseated or a decrease in appetite, New or increased swelling in ankles, lower legs or belly, Dizziness, like you might pass out Stroke Related Discharge Instructions (if any): Individualized Stroke Risk Factors: Smoking Stroke/TIA Signs/Symptoms to Report Immediately: Sudden onset difficulty speaking, Sudden onset difficulty understanding speech, Sudden onset change in vision, Sudden onset weakness particulary on one side of the body, Sudden onset numbness/tingling, Sudden severe headache, Sudden dizziness or trouble with gait, Call : EMS activation is crucial My LDL Level: LDL Level No qualifying data available. Warfarin Related Discharge Instructions (if any): Notify Provider of Signs/Symptoms of: Significant bleeding, Clot Final Medication List: Other Medications albuterol (ProAir HFA 90 mcg/inh inhalation aerosol) 1 Puff(s) Inhalation Four Times A Day as needed as needed for wheezing. amLODIPine (amLODIPine 10 mg oral tablet) 1 Tablet(s) Oral Every Day. aspirin (aspirin 81 mg oral tablet) 1 Tablet(s) Oral Two Times A Day for 45 Day(s). Refills: 0. esomeprazole (NexIUM 40 mg oral delayed release capsule) 1 Capsule(s) Oral Two Times A Day as needed Indigestion. furosemide (Lasix 20 mg oral tablet) 1 Tablet(s) Oral Every Day. gabapentin (Neurontin 300 mg oral capsule) 1 Capsule(s) Oral once a day (at bedtime) for 30 Day(s). Refills: 0. oxyCODONE (oxyCODONE 5 mg oral tablet) 1 Tablet(s) Oral Every 6 Hours as needed as needed for pain for 10 Day(s). 1-2 by mouth every 4-6 hours when necessary. Refills: 0. potassium chloride (potassium chloride 20 mEq oral tablet, extended release) 1 Tablet(s) Oral Every Day. tiotropium (Spiriva 18 mcg inhalation capsule) 1 Capsule(s) Inhalation Every Day. traMADol (Ultram 50 mg oral tablet) 1 Tablet(s) Oral Every 6 Hours as needed as needed for pain for 30 Day(s). 1-2 by mouth every 6-8 hours. Refills: 0. umeclidinium-vilanterol (Anoro Ellipta 62.5 mcg-25 mcg/inh inhalation [...] cramping, rapid heartbeat, difficulty sleeping, and nervousness. Patient education materials: Vitamin K Foods and Warfarin Warfarin is a blood thinner (anticoagulant). Anticoagulant medicines help prevent the formation of blood clots. These medicines work by decreasing the activity of vitamin K, which promotes normal blood clotting. When you take warfarin, problems can occur from suddenly increasing or decreasing the amount of vitamin K that you eat from one day to the next. Problems may include: ??? Blood clots. ??? Bleeding. What general guidelines do I need to follow? To avoid problems when taking warfarin: ??? Eat a balanced diet that includes: ? Fresh fruits and vegetables. ? Whole grains. ? Low-fat dairy products. ? Lean proteins, such as fish, eggs, and lean cuts of meat. ??? Keep your intake of vitamin K consistent from day to day. To do this: ? Avoid eating large amounts of vitamin K one day and low amounts of vitamin K the next day. ? If you take a multivitamin that contains vitamin K, be sure to take it every day. ? Know which foods contain vitamin K. Use the lists below to understand serving sizes and the amount of vitamin K in one serving. ??? Avoid major changes in your diet. If you are going to change your diet, talk with your health care provider before making changes. ??? Work with a nutritionists (dietitian) to develop a meal plan that works best for you. High vitamin K foods Foods that are high in vitamin K contain more than 100 mcg (micrograms) per serving. These include: ??? Broccoli (cooked) ? ? cup has 110 mcg. ??? Ada sprouts (cooked) ? ? cup has 109 mcg. ??? Greens, beet (cooked) ? ? cup has 350 mcg. ??? Greens, noam (cooked) ? ? cup has 418 mcg. ??? Greens, turnip (cooked) ? ? cup has 265 mcg. ??? Green onions or scallions ? ? cup has 105 mcg. ??? Kale (fresh or frozen) ? ? cup has 531 mcg. ??? Parsley (raw) ? 10 sprigs has 164 mcg. ??? Spinach (cooked) ? ? cup has 444 mcg. ??? Cypriot chard (cooked) ? ? cup has 287 mcg. Moderate vitamin K foods Foods that have a moderate amount of vitamin K contain 25?100 mcg per serving. These include: ??? Asparagus (cooked) ? 5 henson have 38 mcg. ??? Black-eyed peas (dried) ? ? cup has 32 mcg. ??? Cabbage (cooked) ? ? cup has 37 mcg. ??? Kiwi fruit ? 1 medium has 31 mcg. ??? Lettuce ? 1 cup has 57?63 mcg. ??? Okra (frozen) ? ? cup has 44 mcg. ??? Prunes (dried) ? 5 prunes have 25 mcg. ??? Watercress (raw) ? 1 cup has 85 mcg. Low vitamin K foods Foods low in vitamin K contain less than 25 mcg per serving. These include: ??? Artichoke ? 1 medium has 18 mcg. ??? Avocado ? 1 oz. has 6 mcg. ??? Blueberries ? ? cup has 14 mcg. ??? Cabbage (raw) ? ? cup has 21 mcg. ??? Carrots (cooked) ? ? cup has 11 mcg. ??? Cauliflower (raw) ? ? cup has 11 mcg. ??? [place] with peel (raw) ? ? cup has 9 mcg. ??? Grapes ? ? cup has 12 mcg. ??? [place] ? 1 medium has 9 mcg. ??? Nuts ? 1 oz. has 15 mcg. ??? Pear ? 1 medium has 8 mcg. ??? Peas (cooked) ? ? cup has 19 mcg. ??? Pickles ? 1 spear has 14 mcg. ??? Pumpkin seeds ? 1 oz. has 13 mcg. ??? Sauerkraut (canned) ? ? cup has 16 mcg. ??? Soybeans (cooked) ? ? cup has 16 mcg. ??? Tomato (raw) ? 1 medium has 10 mcg. ??? Tomato sauce ? ? cup has 17 mcg. Vitamin K-free foods If a food contain less than 5 mcg per serving, it is considered to have no vitamin K. These foods include: ??? Bread and cereal products. ??? Cheese. ??? Eggs. ??? Fish and shellfish. ??? Meat and poultry. ??? Milk and dairy products. ??? [place] seeds. Actual amounts of vitamin K in foods may be different depending on processing. Talk with your dietitian about what foods you can eat and what foods you should avoid. This information is not intended to replace advice given to you by your health care provider. Make sure you discuss any questions you have with your health care provider. Document Released: 03/13/2010 Document Revised: 12/05/2016 Document Reviewed: 08/18/2016 [employer] Patient Education ? 2017 [employer] What You Need to Know About Warfarin Warfarin is a blood thinner (anticoagulant). Anticoagulants help to prevent the formation of blood clots. They also help to stop the growth of blood clots. Who should use warfarin? Warfarin is prescribed for people who are at risk for developing harmful blood clots, such as people who have: ??? Surgically implanted mechanical heart valves. ??? Irregular heart rhythms (atrial fibrillation). ??? Certain clotting disorders. ??? A history of harmful blood clotting in the past. This includes people who have had: ? A stroke. ? Blood clot in the lungs (pulmonary embolism, or PE). ? Blood clot in the legs (deep vein thrombosis, or DVT). ??? An existing blood clot. How is warfarin taken? Warfarin is a medicine that you take by mouth (orally). Warfarin tablets come in different strengths. Each tablet strength is a different color, with the amount of warfarin printed on the tablet. If you get a new prescription filled and the color of your tablet is different than usual, tell your pharmacist or health care provider immediately. What blood tests do I need while taking warfarin? The goal of warfarin therapy is to lessen the clotting tendency of blood, but not to prevent clotting completely. Your health care provider will monitor the anticoagulation effect of warfarin closely and will adjust your dose as needed. Warfarin is a medicine that needs to be closely monitored, so it is very important to keep all lab visits and follow-up visits with your health care provider. While taking warfarin, you will need to have blood tests (prothrombin tests, or PT tests) regularly to measure your blood clotting time. This type of test can be done with a finger stick or a blood draw. What does the INR test result mean? The PT test results will be reported as the International Normalized Ratio (INR). The INR tells your health care provider whether your dosage of warfarin needs to be changed. The longer it takes your blood to clot, the higher the INR. Your health care provider will tell you your target INR range. If your INR is not in your target range, your health care provider may adjust your dosage. ??? If your INR is above your target range, there is a risk of bleeding. Your dosage of warfarin may need to be decreased. ??? If your INR is below your target range, there is a risk of clotting. Your dosage of warfarin may need to be increased. How often is the INR test needed? When you first start warfarin, you will usually have your INR checked every few days. ??? You may need to have INR tests done more than once a week until you are taking the correct dosage of warfarin. ??? After you have reached your target INR, your INR will be tested less often. However, you will need to have your INR checked at least once every 4?6 weeks for the entire time you are taking warfarin. What are the side effects of warfarin? Too much warfarin can cause bleeding (hemorrhage) in any part of the body, such as: ??? Bleeding from the gums. ??? Unexplained bruises. ??? Bruises that get larger. ??? Blood in the urine. ??? Bloody or dark stools. ??? Bleeding in the brain (hemorrhagic stroke). ??? A nosebleed that is not easily stopped. ??? Coughing up blood. ??? Vomiting blood. Warfarin use may also cause: ??? Skin rash or irritations ??? Nausea that does not go away. ??? Severe pain in the back or joints. ??? Painful toes that turn blue or purple (purple toe syndrome). ??? Painful ulcers that do not go away (skin necrosis). What are the signs and symptoms of a blood clot? Too little warfarin can increase the risk of blood clots in your legs, lungs, or arms. Signs and symptoms of a DVT in your leg or arm may include: ??? Pain or swelling in your leg or arm. ??? Skin that is red or warm to the touch on your arm or leg. Signs and symptoms of a pulmonary embolism may include: ??? Shortness of breath or difficulty breathing. ??? Chest pain. ??? Unexplained fever. What are the signs and symptoms of a stroke? If you are taking too much or too little warfarin, you can have a stroke. Signs and symptoms of a stroke may include: ??? Weakness or numbness of your face, arm, or leg, especially on one side of your body. ??? Confusion or trouble thinking clearly. ??? Difficulty seeing with one or both eyes. ??? Difficulty walking or moving your arms or legs. ??? Dizziness. ??? Loss of balance or coordination. ??? Trouble speaking, trouble understanding speech, or both (aphasia). ??? Sudden, severe headache with no known cause. ??? Partial or total loss of consciousness. What precautions do I need to take while using warfarin? Take warfarin exactly as told by your health care provider. Doing this helps you avoid bleeding or blood clots that could result in serious injury, pain, or disability. ??? Take your medicine at the same time every day. If you forget to take your dose of warfarin, take it as soon as you remember that day. If you do not remember on that day, do not take an extra dose the next day. ??? Contact your health care provider if you miss or take an extra dose. Do not change your dosage on your own to make up for missed or extra doses. ??? Wear or carry identification that says that you are taking warfarin. ??? Make sure that all health care providers, including your dentist, know you are taking warfarin. ??? If you need surgery, talk with your health care provider about whether you should stop taking warfarin before your surgery. ??? Avoid situations that cause bleeding. You may bleed more easily while taking warfarin. To limit bleeding, take the following actions: ? Use a softer toothbrush. ? Floss with waxed floss, not unwaxed floss. ? Shave with an electric razor, not with a blade. ? Limit your use of sharp objects. ? Avoid potentially harmful activities, such as contact sports. What do I need to know about warfarin and or ? Warfarin is not recommended during the first trimester of due to an increased risk of defects. In certain situations, a woman may take warfarin after her first trimester of . ??? If you are taking warfarin and you become or plan to become , contact your health care provider right away. ??? If you plan to breastfeed while taking warfarin, talk with your health care provider first. What do I need to know about warfarin and alcohol or drug use? Avoid drinking alcohol, or limit alcohol intake to no more than 1 drink a day for non women and 2 drinks a day for men. One drink equals 12 oz of beer, 5 oz of wine, or 1? oz of hard liquor. ? If you change the amount of alcohol that you drink, tell your health care provider. Your warfarin dosage may need to be changed. ??? Avoid tobacco products, such as cigarettes, chewing tobacco, and e-cigarettes. If you need help quitting, ask your health care provider. ? If you change the amount of nicotine or tobacco that you use, tell your health care provider. Your warfarin dosage may need to be changed. ??? Avoid street drugs while taking warfarin. The effects of street drugs on warfarin are not known. What do I need to know about warfarin and other medicines or supplements? Many prescription and wzdn-exn-vdzevqf medicines can interfere with warfarin. Talk with your health care provider or your pharmacist before starting or stopping any new medicines. This includes kync-art-ewgnarl vitamins, dietary supplements, herbal medicines, and pain medicines. Your warfarin dosage may need to be adjusted. ??? Some common iplc-znx-xdxdudz medicines that may increase the risk of bleeding while taking warfarin include: ? Acetaminophen. ? Aspirin. ? NSAIDs, such as ibuprofen or naproxen. ? Vitamin E. What do I need to know about warfarin and my diet? It is important to maintain a normal, balanced diet while taking warfarin. Avoid major changes in your diet. If you are going to change your diet, talk with your health care provider before making changes. ??? Your health care provider may recommend that you work with a diet and nutritionists (dietitian). ??? Vitamin K decreases the effect of warfarin, and it is found in many foods. Eat a consistent amount of foods that contain vitamin K. For example, you may decide to eat 2 vitamin K-containing foods each day. Most foods that are high in vitamin K are green and leafy. Common foods that contain high amounts of vitamin K include: ??? Kale, raw or cooked. ??? Spinach, raw or cooked. ??? Collards, raw or cooked. ??? Cypriot chard, raw or cooked. ??? Mustard greens, raw or cooked. ??? Turnip greens, raw or cooked. ??? Parsley, raw. ??? Broccoli, cooked. ??? Noodles, eggs, and spinach, enriched. ??? Ada sprouts, raw or cooked. ??? Beet greens, raw or cooked. ??? Endive, raw. ??? Cabbage, cooked. ??? Asparagus, cooked. Foods that contain moderate amounts of vitamin K include: ??? Broccoli, raw. ??? Cabbage, raw. ??? Bok gustavo, cooked. ??? Green leaf lettuce, raw ??? Prunes, stewed. ??? Pickles. ??? Kiwi. ??? Edamame, cooked. ??? [place] lettuce, raw. ??? Avocado. ??? Tuna, canned in oil. ??? Okra, cooked. ??? Black-eyed peas, cooked. ??? Green beans, cooked or raw. ??? Blueberries, raw. ??? Blackberries, raw. ??? Peas, cooked or raw. Contact a health care provider if: ??? You miss a dose. ??? You take an extra dose. ??? You plan to have any kind of surgery or procedure. ??? You are unable to take your medicine due to nausea, vomiting, or diarrhea. ??? You have any major changes in your diet or you plan to make any major changes in your diet. ??? You start or stop any ngdn-zhi-ymcjhwo medicine, prescription medicine, or dietary supplement. ??? You become , plan to become , or think you may be . ??? You have menstrual periods that are heavier than usual. ??? You have unusual bruising. Get help right away if: ??? You develop symptoms of an allergic reaction, such as: ? Swelling of the lips, face, tongue, mouth, or throat. ? Rash. ? Itching. ? Itchy, red, swollen areas of skin (hives). ? Trouble breathing. ? Chest tightness. ??? You have: ? Signs or symptoms of a stroke. ? Signs or symptoms of a blood clot. ? A fall or have an accident, especially if you hit your head. ? Blood in your urine. Your urine may look reddish, pinkish, or tea-colored. ? Blood in your stool. Your stool may be black or bright red. ? Bleeding that does not stop after applying pressure to the area for 30 minutes. ? Severe pain in your joints or back. ? Purple or blue toes. ? Skin ulcers that do not go away. ??? You vomit blood or cough up blood. The blood may be bright red, or it may look like coffee grounds. These symptoms may represent a serious problem that is an emergency. Do not wait to see if the symptoms will go away. Get medical help right away. Call your local emergency services (911 in the [place] Do not drive yourself to the hospital. Summary ??? Warfarin needs to be closely monitored with blood tests. It is very important to keep all lab visits and follow-up visits with your health care provider. ??? Make sure that you know your target INR range and your warfarin dosage. ??? Wear or carry identification that says that you are taking warfarin. ??? Take warfarin at the same time every day. Call your health care provider if you miss a dose or if you take an extra dose. Do not change the dosage of warfarin on your own. ??? Know the signs and symptoms of blood clots, bleeding, and a stroke. Know when to get emergency medical help. ??? Tell all health care providers who care for you that you are taking warfarin. ??? Talk with your health care provider or your pharmacist before starting or stopping any new medicines. ??? Monitor how much vitamin K you eat every day. Try to eat the same amount every day. This information is not intended to replace advice given to you by your health care provider. Make sure you discuss any questions you have with your health care provider. Document Released: 05/16/2006 Document Revised: 01/25/2017 Document Reviewed: 08/11/2016 [employer] Interactive Patient Education ? 2017 [employer] Warfarin Coagulopathy Introduction Warfarin (Coumadin?) coagulopathy refers to bleeding that may occur as a complication of the medicine warfarin. Warfarin is an oral blood thinner (anticoagulant). Warfarin is used for medical conditions where thinning of the blood is needed to prevent blood clots. What are the causes? Bleeding is the most common and most serious complication of warfarin. The amount of bleeding is related to the warfarin dose and length of treatment. In addition, bleeding complications can also occur due to:??? Intentional or accidental warfarin overdose. ??? Underlying medical conditions. ??? Dietary changes. ??? Medicine, herbal, supplement, or alcohol interactions. What are the signs or symptoms? Severe bleeding while on warfarin may occur from any tissue or organ. Symptoms of the blood being too thin may include: ??? Bleeding from the nose or gums. ??? Blood in bowel movements which may appear as bright red, dark, or black tarry stools. ??? Blood in the urine which may appear as pink, red, or brown urine. ??? Unusual bruising or bruising easily. ??? A cut that does not stop bleeding within 10 minutes. ??? Vomiting blood or continuous nausea for more than 1 day. ??? Coughing up blood. ??? Broken blood vessels in your eye (subconjunctival hemorrhage). ??? Abdominal or back pain with or without flank bruising. ??? Sudden, severe headache. ??? Sudden weakness or numbness of the face, arm, or leg, especially on one side of the body. ??? Sudden confusion. ??? Trouble speaking (aphasia) or understanding. ??? Sudden trouble seeing in one or both eyes. ??? Sudden trouble walking. ??? Dizziness. ??? Loss of balance or coordination. ??? Vaginal bleeding. ??? Swelling or pain at an injection site. ??? Superficial fat tissue (necrosis) which may cause skin scarring. This is more common in women and may first present as pain in the waist, thighs, or buttocks. Follow these instructions at home: ??? Always contact your health care provider of any concerns or signs of possible warfarin coagulopathy as soon as possible. ??? Take warfarin exactly as directed by your health care provider. It is recommended that you take your warfarin dose at the same time of the day. If you have been told to stop taking warfarin, do not resume taking warfarin until directed to do so by your health care provider. Follow your health care provider's instructions if you accidentally take an extra dose or miss a dose of warfarin. It is very important to take warfarin as directed since bleeding or blood clots could result in chronic or permanent injury, pain, or disability. ??? Keep all follow-up appointments with your health care provider as directed. It is very important to keep your appointments. Not keeping appointments could result in a chronic or permanent injury, pain, or disability because warfarin is a medicine that requires close monitoring. ??? While taking warfarin, you will need to have regular blood tests to measure your blood clotting time. These blood tests usually include both the prothrombin time (PT) and International Normalized Ratio (INR) tests. The PT and INR results allow your health care provider to adjust your dose of warfarin. The dose can change for many reasons. It is critically important that you have your PT and INR levels drawn exactly as directed. Your warfarin dose may stay the same or change depending on what the PT and INR results are. Be sure to follow up with your health care provider regarding your PT and INR test results and what your warfarin dosage should be. ??? Many medicines can interfere with warfarin and affect the PT and INR results. You must tell your health care provider about any and all medicines you take. This includes all vitamins and supplements. Ask your health care provider before taking these. Prescription and gzll-uev-lfugvev medicine consistency is critical to warfarin management. It is important that potential interactions are checked before you start a new medicine. Be especially cautious with aspirin and anti-inflammatory medicines. Ask your health care provider before taking these. Medicines such as antibiotics and acid-reducing medicine can interact with warfarin and can cause an increased warfarin effect. Warfarin can also interfere with the effectiveness of medicines you are taking. Do not take or discontinue any prescribed or yczb-eah-bnnekuc medicine except on the advice of your health care provider or pharmacist. ??? Some vitamins, supplements, and herbal products interfere with the effectiveness of warfarin. Vitamin E may increase the anticoagulant effects of warfarin. Vitamin K can cause warfarin to be less effective. Do not take or discontinue any vitamin, supplement, or herbal product except on the advice of your health care provider or pharmacist. ??? Eat what you normally eat and keep the vitamin K content of your diet consistent. Avoid major changes in your diet, or notify your health care provider before changing your diet. Suddenly getting a lot more vitamin K could cause your blood to clot too quickly. A sudden decrease in vitamin K intake could cause your blood to clot too slowly. These changes in vitamin K intake could lead to dangerous blood clots?or to bleeding. To keep your vitamin K intake consistent, you must be aware of which foods contain moderate or high amounts of vitamin K. Some foods that are high in vitamin K include spinach, kale, broccoli, cabbage, greens, [place] sprouts, asparagus, bok gustavo, coleslaw, and parsley. If you drink green tea, drink the same amount each day. Arrange a visit with a dietitian to answer your questions. ??? If you have a loss of appetite or get the stomach flu (viral gastroenteritis), talk to your health care provider as soon as possible. A decrease in your normal vitamin K intake can make you more sensitive to your usual dose of warfarin. ??? Some medical conditions may increase your risk for bleeding while you are taking warfarin. A fever, diarrhea lasting more than a day, worsening heart failure, or worsening liver function are some medical conditions that could affect warfarin. Contact your health care provider if you have any of these medical conditions. ??? Be careful not to cut yourself when using sharp objects or while shaving. ??? Alcohol can change the body's ability to handle warfarin. It is best to avoid alcoholic drinks or consume only very small amounts while taking warfarin. Notify your health care provider if you change your alcohol intake. A sudden increase in alcohol use can increase your risk of bleeding. Chronic alcohol use can cause warfarin to be less effective. ??? Limit physical activities or sports that could result in a fall or cause injury. ??? Do not use warfarin if you are . ??? Inform all your health care providers and your dentist that you take warfarin. ??? Inform all health care providers if you are taking warfarin and aspirin or platelet inhibitor medicines such as clopidogrel, ticagrelor, or prasugrel. Use of these medicines in addition to warfarin can increase your risk of bleeding or . Taking these medicines together should only be done under the direct care of your health care providers. Get help right away if: ??? You cough up blood. ??? You have dark or black stools or there is bright red blood coming from your rectum. ??? You vomit blood or have nausea for more than 1 day. ??? You have blood in the urine or pink-colored urine. ??? You have unusual bruising or have increased bruising. ??? You have bleeding from the nose or gums that does not stop quickly. ??? You have a cut that does not stop bleeding within 2?3 minutes. ??? You have sudden weakness or numbness of the face, arm, or leg, especially on one side of the body. ??? You have sudden confusion. ??? You have trouble speaking (aphasia) or understanding. ??? You have sudden trouble seeing in one or both eyes. ??? You have sudden trouble walking. ??? You have dizziness. ??? You have a loss of balance or coordination. ??? You have a sudden, severe headache. ??? You have a serious fall or head injury, even if you are not bleeding. ??? You have swelling or pain at an injection site. ??? You have unexplained tenderness or pain in the abdomen, back, waist, thighs, or buttocks. Any of these symptoms may represent a serious problem that is an emergency. Do not wait to see if the symptoms will go away. Get medical help right away. Call your local emergency services (911 in [place] Do not drive yourself to the hospital. This information is not intended to replace advice given to you by your health care provider. Make sure you discuss any questions you have with your health care provider. Document Released: 04/24/2007 Document Revised: 10/21/2016 Document Reviewed: 10/24/2012 ? 2017 Elsevier What to expect after the Procedure: After the procedure, it is common to have: ?? Pain and swelling. ?? A small amount of blood or clear fluid coming from your incision for up to 7 days. ?? It is normal to have a moderate amount of bleeding from the site of the drain that was pulled on the morning after surgery. You can hold pressure on the area for 3-5 minutes and cover with a bandage as needed. Diet: ?? Resume usual diet ?? No alcoholic beverages while taking pain medication ?? Drink 8-10 glasses of water a day to prevent constipation from pain medication ?? Increase fiber to help prevent constipation. Straining can cause increased pressure and pain in your incision area ?? Increase protein to promote healing Driving: ?? Do not drive until your health care provider approves. Ask your health care provider when it is safe to drive if you have an immobilizer on your knee. ?? Do not drive or operate heavy machinery while taking prescription pain medicine. ?? Do not drive for 24 hours if you received a sedative. Activity: ?? Do not lift anything that is heavier than 10 lb (4.5 kg) until your health care provider approves. ?? No strenuous activity ?? Avoid high-impact activities, including running, jumping rope, and jumping jacks. ?? Avoid sitting for a long time without moving. Get up and move around at least every few hours. ?? Keep legs elevated while seated and place surgery leg on 2-3 pillows, this will decrease swelling ?? Continue doing blue foam and faith basin tub time 3 times a day for 30 minutes at a time. More often is better. ?? Continue using walker until cleared by physical therapy Bathing: ?? Do not take baths, swim, or use a hot tub for one month after surgery. ?? May shower on the third day after surgery by covering incision with Glad Brand Press and Seal saran wrap. After showering, dry off completely BEFORE removing saran wrap. ?? Use Press and Seal saran wrap to shower for one month after surgery ?? You must be seated to shower until you are no longer using the walker Other: ?? Use ice therapy for 20-30 minutes at a time and leave off for 20-30 minutes at a time. Always keep a towel or cloth between the ice pack and your skin ?? Continue to use Incentive Spirometer 10 times an hour while awake for one month to help prevent pneumonia Contact a health care provider if: ?? You have more redness, swelling, or pain around your incision. ?? You have more fluid or blood coming from your incision. ?? Your incision or drain site feels warm to the touch. ?? You have pus or a bad smell coming from your incision. ?? You have a fever. ?? Your incision breaks open after your health care provider removes your sutures, skin glue, or adhesive tape. ?? Your prosthesis feels loose. ?? You have knee pain that does not go away. DVT: Blood Clot Blood clots are a common risk after an orthopedic surgery Symptoms: ?? Swelling of your leg or arm, especially if one side is much worse. ?? Warmth and redness of your leg or arm, especially if one side is much worse. ?? Pain in your arm or leg. If the clot is in your leg, symptoms may be more noticeable or worse when you stand or walk. ?? A feeling of pins and needles, if the clot is in the arm. The symptoms of a DVT that has traveled to the lungs (pulmonary embolism, PE) usually start suddenly and include: ?? Shortness of breath while active or at rest. ?? Coughing or coughing up blood or blood-tinged mucus. ?? Chest pain that is often worse with deep breaths. ?? Rapid or irregular heartbeat. ?? Feeling light-headed or dizzy. ?? Fainting. ?? Feeling anxious. ?? Sweating. There may also be pain and swelling in a leg if that is where the blood clot started. How is this prevented? ?? Exercise regularly. For at least 30 minutes every day, engage in: ? Activity that involves moving your arms and legs. ? Activity that encourages good blood flow through your body by increasing your heart rate. ?? Exercise your arms and legs every hour during long-distance travel (over 4 hours). ?? Drink plenty of water and avoid drinking alcohol while traveling. ?? Avoid sitting or lying in bed for long periods of time without moving your legs. ?? Maintain a weight that is appropriate for your height. Ask your health care provider what weight is healthy for you. ?? If you are a woman who is over 35 years of age, avoid unnecessary use of medicines that contain estrogen. These include control pills. ?? Do not smoke, especially if you take estrogen medicines. If you need help quitting, ask your health care provider. ?? Wear compression stockings (if told by your health care provider) to help prevent blood clots from forming. High Fiber/High Protein Diet High fiber foods: To prevent constipation ?? Grains Whole-grain breads. Multigrain cereal. Oats and oatmeal. Brown rice. Barley. Bulgur wheat. Millet. Bran muffins. Popcorn. [place] wafer crackers. ?? Vegetables Sweet potatoes. Spinach. Kale. Artichokes. Cabbage. Broccoli. Green peas. Carrots. Squash. ?? Fruits Berries. Pears. Apples. Oranges. Avocados. Prunes and raisins. Dried figs. ?? Meats and Other Protein Sources [place], kidney, palm, and soy beans. Split peas. Lentils. Nuts and seeds. ?? Dairy Fiber-fortified yogurt. ?? Beverages Fiber-fortified soy milk. Fiber-fortified orange juice. ?? Other Fiber bars. High-protein foods: To promote healing High-protein foods contain 4 grams (4 g) or more of protein per serving. They include: ?? Beef, ground sirloin (cooked) - 3 oz have 24 g of protein. ?? Cheese (hard) - 1 oz has 7 g of protein. ?? Chicken breast, boneless and skinless (cooked) - 3 oz have 13.4 g of protein. ?? Cottage cheese - 1/2 cup has 13.4 g of protein. ?? Egg - 1 egg has 6 g of protein. ?? Fish, filet (cooked) - 1 oz has 6-7 g of protein. ?? Garbanzo beans (canned or cooked) - 1/2 cup has 6-7 g of protein. ?? Kidney beans (canned or cooked) - 1/2 cup has 6-7 g of protein. ?? Beach (cooked) - 3 oz has 24 g of protein. ?? Milk - 1 cup (8 oz) has 8 g of protein. ?? Nuts (peanuts, pistachios, almonds) - 1 oz has 6 g of protein. ?? Peanut butter - 1 oz has 7-8 g of protein. ?? Pork tenderloin (cooked) - 3 oz has 18.4 g of protein. ?? Pumpkin seeds - 1 oz has 8.5 g of protein. ?? Soybeans (roasted) - 1 oz has 8 g of protein. ?? Soybeans (cooked) - 1/2 cup has 11 g of protein. ?? Soy milk - 1 cup (8 oz) has 5-10 g of protein. ?? Soy or vegetable lionel - 1 lionel has 11 g of protein. ?? [place] seeds - 1 oz has 5.5 g of protein. ?? Tofu (firm) - 1/2 cup has 20 g of protein. ?? Tuna (canned in water) - 3 oz has 20 g of protein. ?? Yogurt - 6 oz has 8 g of protein. Fall Prevention ?? Use night lights. ?? Install grab bars by the toilet and in the tub and shower. Do not use towel bars as grab bars. ?? Use non-skid mats or decals on the floor of the tub or shower. ?? If you need to sit down while you are in the shower, use a plastic, non-slip stool. ?? Keep the floor dry. Immediately clean up any water that spills on the floor. ?? Remove soap buildup in the tub or shower on a regular basis. ?? Remove throw rugs and other tripping hazards from the floor. ?? Place frequently used items in ihwj-xl-[id number] places ?? Keep electrical cables out of the way. ?? Do not leave any items on the stairs. ?? Make sure that there are handrails on both sides of the stairs. Fix handrails that are broken or loose. Make sure that handrails are as long as the stairways. ?? Check any carpeting to make sure that it is firmly attached to the stairs. Fix any carpet that is loose or worn. ?? Avoid having throw rugs at the top or bottom of stairways, or secure the rugs with carpet tape to prevent them from moving. ?? Wear closed-toe shoes that fit well and support your feet. Wear shoes that have rubber soles or low heels. ?? Use mobility aids as needed, such as canes, walkers, scooters, and crutches. ?? Turn on lights if it is dark. Replace any light bulbs that burn out. ?? Set up furniture so that there are clear paths. Keep the furniture in the same spot. ?? Be aware of any and all pets. ?? Review your medicines with your healthcare provider. Some medicines can cause dizziness or changes in blood pressure, which increase your risk of falling. Hand Washing You should wash your hands whenever you think they are dirty. You should also wash your hands: ?? After: ? Working or playing outside. ? Touching an animal or its toys or leash. ? Handling livestock. ? Using the bathroom. ? Using household skein washer or toxic chemicals. ? Touching or taking out the garbage. ? Touching anything dirty around your home. ? Handling soiled clothes or rags. ? Taking care of a sick child. This includes touching used tissues, toys, and clothes. ? Sneezing, coughing, or blowing your nose. ? Using public transportation. ? Shaking hands. ? Using a phone, including your mobile phone. ? Touching money. ?? Before and after: ? Preparing food. ? Feeding a baby or young child. ? Eating. ? Visiting or taking care of someone who is sick. ? Changing a diaper. ? Changing a bandage (dressing) or taking care of an injury or wound. ? Giving or taking medicine. If soap and clean water are not available, use an alcohol-based wipe, spray, or hand gel. Use a hand-sanitizing agent that contains at least 60% alcohol. If you are preparing food, hand sanitizers are not recommended as a substitute for hand washing. Walker Use To Walk With a Front-Wheeled Walker: 1. Slide your front-wheeled walker one step-length in front of you. Your toes should be farther forward than the back legs of your walker. 2. Hold on to the walker for support, and step your weaker (surgery) leg into the middle of the walker. 3. Step your stronger leg forward to land next to your weaker leg. 4. Repeat the process for each step. ?? Always keep both feet within the width of the walker's legs or wheels. ?? When using your walker, you should not feel like you need to lean forward or to the side to keep your hands on the handgrips. ?? Make sure you are following any weight-bearing instructions that your health care provider has given you. ?? Be careful not to let the walker get too far ahead of you as you walk. ?? If your walker does not glide well over carpet, consider cutting an X into two tennis balls and placing the balls over the back legs of your walker. To Use a Walker to Step Up: 1. Put all four legs of the walker on the curb or step. 2. Get your feet as close to the curb or step as you can. 3. Test the steadiness of the walker by pressing down on the handgrips. 4. If the walker is steady, press down on it with your hands as you step up with your stronger leg. 5. Step up with your weaker leg. To Use a Walker to Step Down: 1. Put all four legs of the walker on the surface that is lower than the curb or step. 2. Get your feet as close to the curb or step as you can. 3. Test the steadiness of the walker by pressing down on the handgrips. 4. If the walker is steady, press down on it with your hands as you step down with your weaker leg. 5. Step down with your stronger leg. Knee Immobilizer Brace: ?? Adjust the brace as often as needed while wearing it. It should be firm but not tight. Signs that the brace is too tight include: ? Puffiness (swelling). ? Numbness. ? Color change in your foot or ankle. ? Increased pain. Medication Leaflets: aspirin (oral) ( pir in) Arthritis Pain, Aspir 81, Aspir-Low, Sohail Childrens Aspirin, Durlaza, Ecotrin, Ecpirin, Fasprin, Halfprin, Miniprin What is the most important information I should know about aspirin? You should not use aspirin if you have a bleeding disorder such as hemophilia, a recent history of stomach or intestinal bleeding, or if you are allergic to an NSAID (non-steroidal anti-inflammatory drug). Aspirin can cause Bryson's syndrome, a serious and sometimes fatal condition in children. What is aspirin? Aspirin is a salicylate (jw-SNN-qd-ate). It works by reducing substances in the body that cause pain, fever, and inflammation. Aspirin is used to treat pain, and reduce fever or inflammation. Aspirin is sometimes used to treat or prevent heart attacks, strokes, and chest pain (angina). Aspirin should be used for cardiovascular conditions only under the supervision of a doctor. Aspirin may also be used for purposes not listed in this medication guide. What should I discuss with my healthcare provider before taking aspirin? Do not give this medicine to a child or teenager with a fever, flu symptoms, or chicken pox. Aspirin can cause Bryson's syndrome, a serious and sometimes fatal condition in children. You should not use aspirin if you are allergic to it, or if you have: ? a recent history of stomach or intestinal bleeding; ?? a bleeding disorder such as hemophilia; or ?? if you have ever had an asthma attack or severe allergic reaction after taking aspirin or an NSAID (non-steroidal anti-inflammatory drug). Tell your doctor if you have ever had: ? asthma or seasonal allergies; ?? stomach ulcers; ?? liver disease; ?? kidney disease; ?? a bleeding or blood clotting disorder; ?? gout; or ?? heart disease, high blood pressure, or congestive heart failure. Taking aspirin during late may cause bleeding in the mother or the baby during delivery. Tell your doctor if you are or plan to become . You should not breast-feed while using this medicine. How should I take aspirin? Use exactly as directed on the label, or as prescribed by your doctor. Take with food if aspirin upsets your stomach. Do not crush, chew, break, or open an enteric-coated or delayed-release pill. Swallow it whole. The chewable tablet form of aspirin must be chewed before swallowing. If you use the orally disintegrating tablet or the dispersible tablet, follow all dosing instructions provided with your medicine. If you need surgery, tell your surgeon you currently use this medicine. You may need to stop for a short time. Do not take this medicine if you smell a strong vinegar odor in the aspirin bottle. The medicine may no longer be effective. Store at room temperature away from moisture and heat. What happens if I miss a dose? Since aspirin is used when needed, you may not be on a dosing schedule. Skip any missed dose if it's almost time for your next dose. Do not use two doses at one time. What happens if I overdose? Seek emergency medical attention or call the Poison Help line at . Overdose symptoms may include temporary hearing loss, seizure (convulsions), or coma. What should I avoid while taking aspirin? Avoid alcohol. Heavy drinking can increase your risk of stomach bleeding. If you are taking aspirin to prevent heart attack or stroke, avoid also taking ibuprofen (Advil, Motrin). Ibuprofen may make aspirin less effective. If you must use both medications, take the ibuprofen at least 8 hours before or 30 minutes after you take the aspirin (non-enteric coated form). Ask a doctor or pharmacist before using other medicines for pain, fever, swelling, or cold/flu symptoms. They may contain ingredients similar to aspirin (such as magnesium salicylate, ibuprofen, ketoprofen, or naproxen). What are the possible side effects of aspirin? Get emergency medical help if you have signs of an allergic reaction: hives; difficult breathing; swelling of your face, lips, tongue, or throat. Stop using aspirin and call your doctor at once if you have: ? ringing in your ears, confusion, hallucinations, rapid breathing, seizure (convulsions); ?? severe nausea, vomiting, or stomach pain; ?? bloody or tarry stools, coughing up blood or vomit that looks like coffee grounds; ?? fever lasting longer than 3 days; or ?? swelling, or pain lasting longer than 10 days. Common side effects may include: ? upset stomach, heartburn; ?? drowsiness; or ?? mild headache. This is not a complete list of side effects and others may occur. Call your doctor for medical advice about side effects. You may report side effects to FDA at 1-872-WYC-7202. What other drugs will affect aspirin? Ask your doctor before using aspirin if you take an antidepressant. Taking certain antidepressants with aspirin may cause you to bruise or bleed easily. Ask a doctor or pharmacist before using aspirin with any other medications, especially: ? a blood thinner (warfarin, Coumadin, Jantoven), or other medication used to prevent blood clots; or ?? other salicylates such as Nuprin Backache Caplet, Kaopectate, KneeRelief, Pamprin Cramp Formula, Pepto-Bismol, Tricosal, Trilisate, and others. This list is not complete. Other drugs may affect aspirin, including prescription and esho-hbm-[id number] medicines, vitamins, and herbal products. Not all possible drug interactions are listed here. Where can I get more information? Your pharmacist can provide more information about aspirin. Remember, keep this and all other medicines out of the reach of children, never share your medicines with others, and use this medication only for the indication prescribed. Every effort has been made to ensure that the information provided by [employer]. ('[employer]') is accurate, up-to-date, and complete, but no guarantee is made to that effect. Drug information contained herein may be time sensitive. [employer] information has been compiled for use by healthcare practitioners and consumers in the [place] and therefore [employer] does not warrant that uses outside of the [place] are appropriate, unless specifically indicated otherwise. [employer] drug information does not endorse drugs, diagnose patients or recommend therapy. [employer] drug information is an informational resource designed to assist licensed healthcare practitioners in caring for their patients and/or to serve consumers viewing this service as a supplement to, and not a substitute for, the expertise, skill, knowledge and judgment of healthcare practitioners. The absence of a warning for a given drug or drug combination in no way should be construed to indicate that the drug or drug combination is safe, effective or appropriate for any given patient. [employer] does not assume any responsibility for any aspect of healthcare administered with the aid of information [employer] provides. The information contained herein is not intended to cover all possible uses, directions, precautions, warnings, drug interactions, allergic reactions, or adverse effects. If you have questions about the drugs you are taking, check with your doctor, nurse or pharmacist. Copyright 1460-0000 [employer]. Version: 15.. Revision Date: 08/29/2017. gabapentin (GA ba PEN tin) Gralise, Horizant, Neurontin What is the most important information I should know about gabapentin? Some people have thoughts about suicide while taking this medicine. Children taking gabapentin may have behavior changes. Stay alert to changes in your mood or symptoms. Report any new or worsening symptoms to your doctor. Do not stop using gabapentin suddenly, even if you feel fine. What is gabapentin? Gabapentin is an anti-epileptic drug, also called an anticonvulsant. It affects chemicals and nerves in the body that are involved in the cause of seizures and some types of pain. Gabapentin is used in adults to treat nerve pain caused by herpes virus or shingles (herpes zoster). The Horizant brand of gabapentin is also used to treat restless legs syndrome (RLS). The Neurontin brand of gabapentin is also used to treat seizures in adults and children who are at least 3 years old. Use only the brand and form of gabapentin your doctor has prescribed. Check your medicine each time you get a refill to make sure you receive the correct form. Gabapentin may also be used for purposes not listed in this medication guide. What should I discuss with my healthcare provider before taking gabapentin? You should not use gabapentin if you are allergic to it. To make sure gabapentin is safe for you, tell your doctor if you have ever had: ? kidney disease (or if you are on dialysis); ?? diabetes; ?? depression, a mood disorder, or suicidal thoughts or actions; ?? a seizure (unless you take gabapentin to treat seizures); ?? liver disease; ?? heart disease; or ?? (for patients with RLS) if you are a day sleeper or work a mine shifter. Some people have thoughts about suicide while taking this medicine. Your doctor should check your progress at regular visits. Your family or other caregivers should also be alert to changes in your mood or symptoms. It is not known whether this medicine will harm an unborn baby. Tell your doctor if you are or plan to become . Seizure control is very important during , and having a seizure could harm both mother and baby. Do not start or stop taking gabapentin for seizures without your doctor's advice, and tell your doctor right away if you become . Gabapentin can pass into breast milk, but effects on the nursing baby are not known. Tell your doctor if you are breast-feeding. How should I take gabapentin? Follow all directions on your prescription label. Do not take this medicine in larger or smaller amounts or for longer than recommended. The Horizant brand of gabapentin should not be taken during the day. For best results, take Horizant with food at about 5:00 in the evening. Both Gralise and Horizant should be taken with food. Neurontin can be taken with or without food. If you break a Neurontin tablet and take only half of it, take the other half at your next dose. Any tablet that has been broken should be used as soon as possible or within a few days. Do not crush, chew, or break an extended-release tablet. Swallow it whole. Measure liquid medicine with the dosing syringe provided, or with a special dose-measuring spoon or medicine cup. If you do not have a dose-measuring device, ask your pharmacist for one. If your doctor changes your brand, strength, or type of gabapentin, your dosage needs may change. Ask your pharmacist if you have any questions about the new kind of gabapentin you receive at the pharmacy. Do not stop using gabapentin suddenly, even if you feel fine. Stopping suddenly may cause increased seizures. Follow your doctor's instructions about tapering your dose. Wear a medical alert tag or carry an ID card stating that you have seizures. Any medical care provider who treats you should know that you take seizure medication. This medicine can cause unusual results with certain medical tests. Tell any doctor who treats you that you are using gabapentin. Store gabapentin tablets and capsules at room temperature away from light and moisture. Store the liquid medicine in the refrigerator. Do not freeze. What happens if I miss a dose? Take the missed dose as soon as you remember. Be sure to take the medicine with food. Skip the missed dose if it is almost time for your next scheduled dose. Do not take extra medicine to make up the missed dose. What happens if I overdose? Seek emergency medical attention or call the Poison Help line at . What should I avoid while taking gabapentin? This medicine may impair your thinking or reactions. Be careful if you drive or do anything that requires you to be alert. Avoid taking an antacid within 2 hours before or after you take gabapentin. Antacids can make it harder for your body to absorb gabapentin. Drinking alcohol with this medicine can cause side effects. What are the possible side effects of gabapentin? Get emergency medical help if you have signs of an allergic reaction: hives; difficult breathing; swelling of your face, lips, tongue, or throat. Seek medical treatment if you have a serious drug reaction that can affect many parts of your body. Symptoms may include: skin rash, fever, swollen glands, flu-like symptoms, muscle aches, severe weakness, unusual bruising, or yellowing of your skin or eyes. This reaction may occur several weeks after you began using gabapentin. Report any new or worsening symptoms to your doctor, such as: mood or behavior changes, anxiety, panic attacks, trouble sleeping, or if you feel impulsive, irritable, agitated, hostile, aggressive, restless, hyperactive (mentally or physically), depressed, or have thoughts about suicide or hurting yourself. Call your doctor at once if you have: ? increased seizures; ?? severe weakness or tiredness; ?? problems with balance or muscle movement; ?? upper stomach pain; ?? chest pain, new or worsening cough with fever, trouble breathing; ?? severe tingling or numbness; ?? rapid eye movement; or ?? kidney problems--little or no urination, painful or difficult urination, swelling in your feet or ankles. Some side effects are more likely in children taking gabapentin. Contact your doctor if the child taking this medicine has any of the following side effects: ? changes in behavior; ?? memory problems; ?? trouble concentrating; or ?? acting restless, hostile, or aggressive. Common side effects may include: ? headache, dizziness, drowsiness, tiredness; ?? swelling in your hands or feet; ?? problems with your eyes; ?? coordination problems; or ?? (in children) fever, nausea, vomiting. This is not a complete list of side effects and others may occur. Call your doctor for medical advice about side effects. You may report side effects to FDA at 8-531-EES-1716. What other drugs will affect gabapentin? Taking gabapentin with other drugs that make you sleepy can worsen this effect. Ask your doctor before taking a sleeping pill, narcotic medication, muscle relaxer, or medicine for anxiety, depression, or seizures. Other drugs may interact with gabapentin, including prescription and ygme-ctf-tntcvim medicines, vitamins, and herbal products. Tell your doctor about all your current medicines and any medicine you start or stop using. Where can I get more information? Your pharmacist can provide more information about gabapentin. Remember, keep this and all other medicines out of the reach of children, never share your medicines with others, and use this medication only for the indication prescribed. Every effort has been made to ensure that the information provided by [employer]. ('[employer]') is accurate, up-to-date, and complete, but no guarantee is made to that effect. Drug information contained herein may be time sensitive. [employer] information has been compiled for use by healthcare practitioners and consumers in the [place] and therefore [employer] does not warrant that uses outside of the [place] are appropriate, unless specifically indicated otherwise. [employer]'s drug information does not endorse drugs, diagnose patients or recommend therapy. [employer] drug information is an informational resource designed to assist licensed healthcare practitioners in caring for their patients and/or to serve consumers viewing this service as a supplement to, and not a substitute for, the expertise, skill, knowledge and judgment of healthcare practitioners. The absence of a warning for a given drug or drug combination in no way should be construed to indicate that the drug or drug combination is safe, effective or appropriate for any given patient. [facility] does not assume any responsibility for any aspect of healthcare administered with the aid of information [facility] provides. The information contained herein is not intended to cover all possible uses, directions, precautions, warnings, drug interactions, allergic reactions, or adverse effects. If you have questions about the drugs you are taking, check with your doctor, nurse or pharmacist. Copyright [id number] [facility]. Version: 14.. Revision Date: 03/08/2017. oxycodone (ox i KOE done) Oxaydo, OxyCONTIN, Oxyfast, Roxicodone, Xtampza ER What is the most important information I should know about oxycodone? MISUSE OF OPIOID MEDICINE CAN CAUSE ADDICTION, OVERDOSE, OR . Keep the medication in a place where others cannot get to it. Taking opioid medicine during may cause life-threatening withdrawal symptoms in the . Fatal side effects can occur if you use opioid medicine with alcohol, or with other drugs that cause drowsiness or slow your breathing. What is oxycodone? Oxycodone is an opioid pain medication used to treat moderate to severe pain. The extended-release form of oxycodone is for wdkyap-opg-wtwca treatment of pain and should not be used on an as-needed basis for pain. Oxycodone may also be used for purposes not listed in this medication guide. What should I discuss with my healthcare provider before using oxycodone? You should not use oxycodone if you are allergic to it, or if you have: ? severe asthma or breathing problems; or ?? a blockage in your stomach or intestines. You should not use oxycodone unless you are already using a similar opioid medicine and are tolerant to it. Most brands of oxycodone are not approved for use in people under 18. OxyContin should not be given to a child younger than 11 years old. Tell your doctor if you have ever had: ? a head injury, or seizures; ?? drug or alcohol addiction, or mental illness; ?? liver or kidney disease; ?? urination problems; or ?? problems with your gallbladder, pancreas, or thyroid. If you use opioid medicine while you are , your baby could become dependent on the drug. This can cause life-threatening withdrawal symptoms in the baby after it is born. Babies born dependent on opioids may need medical treatment for several weeks. Do not breast-feed. Oxycodone can pass into breast milk and may cause drowsiness, breathing problems, or in a nursing baby. How should I use oxycodone? Follow the directions on your prescription label and read all medication guides. Never use oxycodone in larger amounts, or for longer than prescribed. Tell your doctor if you feel an increased urge to take more of this medicine. Never share opioid medicine with another person, especially someone with a history of drug abuse or addiction. MISUSE CAN CAUSE ADDICTION, OVERDOSE, OR . Keep the medication in a place where others cannot get to it. Selling or giving away opioid medicine is against the law. Stop taking all other vvelny-ocp-sohfw narcotic pain medicines when you start taking extended-release oxycodone. Take oxycodone with food. Swallow the capsule or tablet whole to avoid exposure to a potentially fatal overdose. Do not crush, chew, break, open, or dissolve. Never crush or break an oxycodone pill to inhale the powder or mix it into a liquid to inject the drug into your vein. This can cause in . Measure liquid medicine carefully. Use the dosing syringe provided, or use a medicine dose-measuring device (not a kitchen spoon). You should not stop using oxycodone suddenly. Follow your doctor's instructions about tapering your dose. Store at room temperature, away from heat, moisture, and light. Keep track of your medicine. Oxycodone is a drug of abuse and you should be aware if anyone is using your medicine improperly or without a prescription. Do not keep leftover opioid medication. Just one dose can cause in someone using this medicine accidentally or improperly. Ask your pharmacist where to locate a drug take-back disposal program. If there is no take-back program, flush the unused medicine down the toilet. What happens if I miss a dose? Since oxycodone is used for pain, you are not likely to miss a dose. Skip any missed dose if it is almost time for your next dose. Do not use two doses at one time. What happens if I overdose? Seek emergency medical attention or call the Poison Help line at . An oxycodone overdose can be fatal, especially in a child or other person using the medicine without a prescription. Overdose can cause severe muscle weakness, pinpoint pupils, very slow breathing, extreme drowsiness, or coma. What should I avoid while using oxycodone? Do not drink alcohol. Dangerous side effects or could occur. Avoid driving or operating machinery until you know how oxycodone will affect you. Dizziness or severe drowsiness can cause falls or other accidents. Avoid medication errors. Always check the brand and strength of oxycodone you get from the pharmacy. What are the possible side effects of oxycodone? Electronically signed by Jaswinder Gilbert Conversion Venereal Disease Control Head Cerner at 10/20/2022 12:34 PM CDT documented in this encounter Plan of Treatment Not on file documented as of this encounter Visit Diagnoses Not on filedocumented in this encounter
--- OUTSIDE RECORDS SUMMARY | 2025-02-07 06:56 | XMS_ITS | Encounter Summary ---
Author Organization [employer] ([place], [place], [place], [place]) Address [address] [place] [address] Care Team Providers Care Ticket Printer Name Role Phone Unavailable Primary Care Provider Unavailabl e Encounter Details Date Type Department Care Team (Late st Contact Info) Description 07/05/2018 Transcribed Document [facility] Radiology [address] [place] [address] Provider, Jaswinder Zarco MD Social [...] Miscellaneous Notes * Cerner Conversion Note - Jaswinder Goldstein MD - 07/05/2018 8:00 PM EST Patient: MARTA RAZO Age: 62 years Sex: Male : 1955 Associated Diagnoses: Unilateral primary osteoarthritis, right knee; Status post unicompartmental knee replacement, right; Hypertension; COPD (chronic obstructive pulmonary disease); obstructive sleep apnea; Morbid obesity with BMI of 40.0-44.9, adult Author: BRIDGETTE ARTHUR MD-INT Basic Information 62 years old white male with a complicated medical history as listed below in addition to degenerative joint disease was admitted after he had unicompartmental right knee arthroplasty by Dr. Zee. 1???COPD, patient was on scheduled as well as when necessary nebs 2???morbid obesity with BMI of 44.9, patient was on sleep apnea precautions 3???obstructive sleep apnea, oxygen and BiPAP were on board 4???hypertension, all blood pressure medications were on hold for systolic blood pressure less than 130 Discharge Information Patient had surgery and is recovering well. patient is awake, alert, cooperative, responsive, and is under no acute distress. Patient is on pain medication as recommended by DR Zee. Patient's pain is well controlled. Patient is on DVT prophylaxis and also on scheduled bowel regimen. Urine out-put is adequate. Started on clear liquid diet & advanced as tolerated to regular diet. Noted on PT/OT and is participating well with rehabilitation. Review of Systems Constitutional: No fever, No weakness, No fatigue. Eye: No recent visual problem, No double vision, No visual disturbances. Ear/Nose/Mouth/Throat: No nasal congestion, No sore throat. Respiratory: No shortness of breath, No cough, No wheezing. Cardiovascular: No chest pain, No tachycardia. Gastrointestinal: No nausea, No vomiting. Genitourinary: Negative. Musculoskeletal: Negative. Integumentary: wound stable covered w. clean dressing, No rash, No pruritus. Neurologic: Alert and oriented X4, no dizziness. Health Status Allergies: Allergies (1) Active Reaction penicillin Unknown Current medications: Medications (25) Active Scheduled: (6) #NaCl 0.9% *FLUSH* inj 10 mL 10 mL, IV Push, Q12H amLODIPine 10 mg tab 10 mg 1 Tab, Oral, Daily aspirin EC 81 mg tab 81 mg 1 Tab, Oral, BID ipratropium 0.02% inh soln 2.5 mL 2.5 mL, Nebulized Inhalation, Q6H pneumococcal 23-eleuterio vacc inj 0.5 mL 0.5 mL, IntraMuscular, I44REco pregabalin 75 mg cap 75 mg 1 Cap, Oral, [id number] Continuous: (1) D5/LR 1,000 mL 1,000 mL, IntraVENous PRN: (18) #NaCl 0.9% *FLUSH* inj 10 mL 10 mL, IV Push, See Comment acetaminophen 500 mg tab 500 mg 1 Tab, Oral, Q6H al hydrox/mag hydrox/simeth 30 mL liq 30 mL, Oral, Q6H albuterol 90 mcg/1 puff inh 6.7 g 1 Puff, Inhalation, QID albuterol-ipratropium inh 3 mL 3 mL, Nebulized Inhalation, Q4H bisacodyl 10 mg supp 10 mg 1 Supp, Rectal, Daily docusate calcium 240 mg cap 240 mg 1 Cap, Oral, Daily famotidine 20 mg tab 20 mg 1 Tab, Oral, PREOP HYDROmorphone 1 mg/1 mL inj 0.5 mg 0.5 mL, IV Push, Q3H magnesium hydroxide 8% liq 30 mL 15 mL, Oral, Q6H metaxalone 800 mg tab 800 mg 1 Tab, Oral, TID ondansetron 4 mg tab 4 mg 1 Tab, Oral, Q6H oxyCODONE 5 mg tab 5 mg 1 Tab, Oral, Q4H oxyCODONE 5 mg tab 10 mg 2 Tab, Oral, Q4H pantoprazole EC 40 mg tab 40 mg 1 Tab, Oral, Daily phenol 1.4% throat spray 5 [place], Oral, Q2H promethazine 25 mg/1 mL inj 12.5 mg 0.5 mL, IV Push, Q6H traZODone 50 mg tab 50 mg 1 Tab, Oral, At Bedtime Problem list: Active Problems (3) COPD (chronic obstructive pulmonary disease) History of obstructive sleep apnea Hypertension Physical Examination VS/Measurements Vital Measurements 07/05/2018 15:00 EST Heart Rate Monitored 90 bpm Respiratory Rate 18 Breaths/Min Systolic Blood Pressure 121 mmHg Diastolic Blood Pressure 76 mmHg Mean Arterial Pressure (MAP)-BMDI 94 Oxygen Saturation 97 % Oxygen Therapy Mode Nasal cannula Oxygen Flow Rate 3 Liter/Min General: Alert and oriented, No acute distress. Eye: Pupils are equal, round and reactive to light, Extraocular movements are intact. HENT: Oral mucosa is moist. Neck: Supple, No carotid bruit, No jugular venous distention, No lymphadenopathy, No thyromegaly. Respiratory: Lungs are clear to auscultation, Breath sounds are equal. Cardiovascular: Normal rate, Regular rhythm, No murmur. Gastrointestinal: Soft, Non-tender, Normal bowel sounds, No organomegaly. Genitourinary: No costovertebral angle tenderness, No inguinal tenderness. Lymphatics: No lymphadenopathy neck, axilla, groin. Musculoskeletal: Normal strength, No swelling. Integumentary: Warm, Intact, No rash, WOUND STABLE. Neurologic: Alert, Oriented, No focal deficits. Psychiatric: Cooperative, Appropriate mood & affect. Review / Management Results review Condition: Fair. Discharge Plan Discharge Summary Plan Discharge Status: stable. Orders Order Profile (Selected) Inpatient Orders Ordered Discharge Follow Up Instructions: Start: 07/05/18 18:59:00 EST, Follow-up with Dr. Zee as scheduled Discharge Notification Pharmacy: Start: 07/05/18 18:59:30 EST Discharge: Start: 07/05/18 18:59:00 EST, Discharge to: Home, Other DC instructions: May go home from medical standpoint and if he meets all the criteria for discharge/nursing staff to follow on Dr. Zee recommendations as well as PT/OT recommendations. Diagnosis Unilateral primary osteoarthritis, right knee - Discharge, Medical. Status post unicompartmental knee replacement, right - Discharge, Medical. Hypertension - Discharge, Medical. COPD (chronic obstructive pulmonary disease) - Discharge, Medical. Obstructive sleep apnea - Discharge, Medical. Morbid obesity with BMI of 40.0-44.9, adult - Discharge, Medical. Course Improving. Stable. Plan/ pt is HD & CLINICALLY STABLE AFEBRILE OK TO D/C HOME ALL CONSULTANTS AGREE FOR HER D/C HOME ON HH / OUTPT.REHAB. Discussed with patient and family patient condition.. Patient has been told by Dr. Zee to that can be discharged today if he is stable. I reexamined the patient and the need to have a knee problem after he had his regular diet, there was no nausea or vomiting, he was urinating on his own and his urine output is adequate he was cleared by PT/OT for discharge. He had his walker by case management. Orders Order Profile (Selected) Prescriptions Prescribed Neurontin 300 mg oral capsule: 1 Cap, Oral, Cap, Once a day (at bedtime), # 30 Cap, 0 Refill(s), other reason (Rx) Ultram 50 mg oral tablet: 1 Tab, Oral, Tab, Q6H, PRN as needed for pain, 1-2 by mouth every 6-8 hours, X 30 Day(s), # 120 Tab, 0 Refill(s), other reason (Rx) aspirin 81 mg oral tablet: 1 Tab, Oral, Tab, BID, # 90 Tab, 0 Refill(s), other reason (Rx) oxyCODONE 5 mg oral tablet: 1 Tab, Oral, Tab, Q6H, PRN as needed for pain, 1-2 by mouth every 4-6 hours when necessary, X 10 Day(s), # 40 Tab, 0 Refill(s), other reason (Rx) Documented Medications Documented Anoro Ellipta 62.5 mcg-25 mcg/inh inhalation powder: 1 Puff, Inhalation, Daily, 0 Refill(s) Lasix 20 mg oral tablet: 1 Tab, Oral, Daily, 0 Refill(s) NexIUM 40 mg oral delayed release capsule: 1 Cap, Oral, DR Cap, BID, PRN Indigestion, 0 Refill(s) ProAir HFA 90 mcg/inh inhalation aerosol: 1 Puff, Inhalation, QID, PRN as needed for wheezing, 0 Refill(s) Spiriva 18 mcg inhalation capsule: 1 Cap, Inhalation, Cap, Daily, 0 Refill(s) amLODIPine 10 mg oral tablet: 1 Tab, Oral, Daily, 0 Refill(s) potassium chloride 20 mEq oral tablet, extended release: 1 Tab, Oral, Daily, 0 Refill(s). Impression and Plan twt 40 mn Electronically signed by Jaswinder Gilbert Conversion [employer] Counselor Cerner at 10/20/2022 12:34 PM CDT documented in this encounter Plan of Treatment Not on file documented as of this encounter Visit Diagnoses Not on filedocumented in this encounter
--- OUTSIDE RECORDS SUMMARY | 2025-02-07 06:56 | XMS_ITS | Encounter Summary ---
[facility] Address [address] [place] [address] Care Team Providers Care Financial Professional Name Role Phone Refugio Fink MD Primary Care Provider [phone] Reason for Visit * Reason Comments Med Refill Encounter Details Date Type Department Care Team (Late st Contact Info) Description 01/16/2025 Refill [facility] [address] [place] [address] Sean Ross MD [address] [place] [address] Primary hypertension Social History Tobacco Use Types Packs/Day Years Used Date Smoking Tobacco: Former Cigarettes 2 42.5 0 09/30/1975 - 03/14/2018 Passive Smoke Exposure: Past Smokeless Tobacco: Never Alcohol Use Standard Drinks/Week Comments Not Currently 0 (1 standard drink = 0.6 oz pur e alcohol) PHQ-2 Answer Date Recorded Retired PHQ-9: Brief Depression Severity Measure Score 0 09/07/2022 Abuse Screen Answer Date Recorded Feels Unsafe at Home or Work/School no 11/15/2022 Feels Threatened by Someone no 10/28 Does Anyone Try to Keep You From Having Contact with Others or Doing Things Outside Your Home? no 11/15/2022 Physical Signs of Abuse Present no 11/15/2022 Housing Stability Answer Date Recorded Current Living Arrangements home 10/28 Potentially Unsafe Housing Conditions Not on karolina e 11/15/2022 Disabilities Answer Date Recorded Difficulty Concentrating, Remembering or Making Decisions no 11/15/2022 Doing Errands Independently Difficulty Not on fi le 11/15/2022 PHQ-2 Answer Date Recorded Retired PHQ-9: Brief Depression Severity Measure Score 0 09/12/2023 Sex and Gender Information Value Date Recorded Sex Assigned at Male 11/15/2024 10:13 AM EDT Legal Sex Male 1:28 PM EDT Gender Identity Not on file Sexual Orientation Straight 11/15/2024 10 :13 AM EDT documented as of this encounter Miscellaneous Notes * Telephone Encounter - Diana Pina MA - 01/17/2025 10:17 AM EDT No longer seeing Dr. Ross. documented in this encounter Plan of Treatment Upcoming Encounters Date Type Department Care Team (Late st Contact Info) Description 04/10/2026 3:30 PM EST Office Visit [facility] [address] [place] [address] [place] [address] Beto Mccurdy MD [address] [place] [address] documented as of this encounter Visit Diagnoses Diagnosis Primary hypertension Unspecified essential hypertension documented in this encounter Care Teams Financial Professional Relationship Specialty Start Date End Date Refugio Fink MD [address] [place] [address] [place] [address] PCP - General 11/29/24 documented as of this encounter
--- OUTSIDE RECORDS SUMMARY | 2025-02-07 06:56 | XMS_ITS | Referral Summary ---
Author Organization [employer] ([place], [place], [place], [place]) Address [address] [place] [address] Care Team Providers Care Corporate Analyst Name Role Phone Unavailable Primary Care Provider Unavailabl e Social History Tobacco Use Types Packs/Day Years Used Date Smoking Tobacco: Never Assessed Sex and Gender Information Value Date Recorded Sex Assigned at Male 11/24/2021 8:26 PM CDT Legal Sex Male 8:26 PM CDT Gender Identity Male 11/24/2021 8:26 PM CDT Sexual Orientation Not on file Plan of Treatment Not on file
--- OUTSIDE RECORDS SUMMARY | 2025-02-07 06:56 | XMS_ITS | Clinical Summary ---
Author Organization [facility] Address [address] [place] [address] Care Team Providers Care Food Analyst Name Role Phone Refugio Fink MD Primary Care Provider [phone]- [phone] Allergies Active Allergy Reactions Criticality Noted Date Comments Penicillins Other (See Comments) 02/19/2021 childhood Medications Umeclidinium-Kaleigh anterol (ANORO ELLIPTA IN) Inhale Daily. Acti ve aspirin 81 MG EC tablet Take 1 tablet by mouth Daily. Active albuterol sulfate HFA 108 (90 Base) MCG/ACT inhaler Inhale 2 puffs As Needed for Wheezing. 8 g 3 3 Active amLODIPine (NORVASC) 10 MG tabletIndication s:Primary hypertension Take 1 tablet by mouth Daily. 30 tablet 5 4 Active potassium chloride 10 MEQ CR tabletIndication s:Primary hypertension Take 1 tablet by mouth Daily. 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 Take no more than 3 doses in 15 minutes. 30 tablet 1 4 Active betamethasone valerate (VALISONE) 0.1 % ointmentIndicati ons:Hand eczema Apply 1 Application topically to the appropriate area as directed 2 (Two) Times a Day. 15 g 1 4 Active Testosterone Cypionate (Depo-Testostero ne) 200 MG/ML injectionIndicat ions:Male hypogonadism Inject 0.5 mL into the appropriate muscle as directed by prescriber Every 14 (Fourteen) Days. 1 mL 5 4 Active atorvastatin (LIPITOR) 40 MG tablet TAKE 1 TABLET BY MOUTH ONCE DAILY AT NIGHT 90 tablet 5 Active lisinopril (PRINIVIL,ZESTRI L) 20 MG tabletIndication s:Primary hypertension Take 1 tablet by mouth once daily 90 tablet 5 Active sildenafil (VIAGRA) 50 MG tablet TAKE 1 TABLET BY MOUTH ONCE DAILY NEEDED FOR ERECTILE DYSFUNCTION 18 tablet 5 Active furosemide (LASIX) 40 MG tabletIndication s:Acute on chronic diastolic (congestive) heart failure Take 1 tablet by mouth once daily 90 tablet 5 Active traMADol (ULTRAM) 50 MG tablet Take 1 tablet by mouth 3 times a day. 5 Active Active Problems Problem Noted Date Diagnosed Date Male hypogonadism 04/02/2024 Assessment & Plan (04/02/2024 10:11 AM EST): Plan will be to begin testosterone cypionate 100 mg IM every 14 days x 6 doses with repeat testosterone level in between a 6 and seventh dose. PSA level has been ordered for prostate cancer screening. Obstructive sleep apnea, adult 03/15/2024 Hyperlipidemia LDL goal <70 11/15/2022 Chronic heart failure with p reserved ejection fraction (HFpEF) 11/15/2022 Other emphysema 09/07/2022 Primary hypertension 05/27/2022 Assessment & Plan (05/27/2022 4:09 PM EST): Controlled. Refills were not needed today. 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 Assessment & Plan (05/27/2022 4:10 PM EST): Stable. Continue atorvastatin 10 mg every other day Encounters Date Type Department Care Team Description 02/06/2025 Telephone [facility] [address] [place] [address] Navigator, Lung 01/23/2025 Refill [facility] [address] [facility] [place] [address] Sean Ross MD Primary hypertension 01/16/2025 Refill [facility] [address] [facility] [place] [address] Sean Ross MD Primary hypertension 01/08/2025 Telephone [facility] [address] [place] [address] Navigator, Lung 12/06/2024 1:45 PM EDT Office Visit [facility] [address] [place] [address] Beto Mccurdy MD Coronary artery disease involving lumbee coronary artery of lumbee heart without angina pectoris (Primary Dx); Primary hypertension; Mixed hyperlipidemia 12/06/2024 Travel 12/04/2024 Refill [facility] [address] [place] [address] Sean Ross MD Acute on chronic diastolic (congestive) heart failure 11/19/2024 Telephone [facility] [address] [facility] [address] [place] [address] Beto Mccurdy MD from Last 3 Months Immunizations Immunization Administration Dates Next Due COVID-19 (PFIZER) Purple Cap Monovalent 03/19/20,08/08/2020 Fluzone (or Fluarix & Flulaval for VFC) >6mos ,02/21/2019 Influenza, Unspecified 02/18/2020,02/21/2019 Pneumococcal Conjugate 20-Valent (PCV20) 024 Shingrix 07/06/2023,05/04/2023 Family History Medical History Relation Name Comments COPD Father Rey sharp Cancer Father Rey sharp Heart disease Father Rey sharp Hyperlipidemia Father Rey sharp Kidney disease Father Rey sharp Alzheimer's disease Mother Chelsie sharp Arthritis Mother Chelsie sharp Heart disease Mother Chelsie sharp Hyperlipidemia Mother Chelsie sharp Relation Name Status Comments Brother 1 (Age 37) Brother 2 Alive Father Rey sharp Mother Chelsie sharp Social History Tobacco Use Types Packs/Day Years Used Date Smoking Tobacco: Former Cigarettes 2 42.5 0 09/30/1975 - 03/14/2018 Passive Smoke Exposure: Past Smokeless Tobacco: Never Tobacco Cessation:Counseling Given: Not Answered Alcohol Use Standard Drinks/Week Comments Not Currently [...] Orientation Straight 11/15/2024 10 :13 AM EDT Last Filed Vital Signs Vital Sign Reading Time Taken Comments Blood Pressure 142/72 12/06/2024 1:28 PM EDT Pulse 93 12/06/2024 1:28 PM EDT Temperature 36.5 C (97.7 F) 04/02/2024 9:51 AM EST Respiratory Rate 20 04/02/2024 9:51 AM EST Oxygen Saturation 99% 12/06/2024 1:28 PM EDT Inhaled Oxygen Concentration - - Weight 118 kg (260 lb) 12/06/2024 1:28 PM EDT Height 170.2 cm (5' 7 ) 12/06/2024 1:28 PM EDT Body Mass Index 40.72 12/06/2024 1:28 PM EDT Plan of Treatment Upcoming Encounters Date Type Department Care Team (Late st Contact Info) Description 04/10/2026 3:30 PM EST Office Visit [facility] [address] [place] [address] [place] [address] Beto Mccurdy MD [address] [facility] [address] [place] [address] Health Maintenance Due Date Last Done Comments DIABETIC EYE EXAM 09/29/1965 DIABETIC FOOT EXAM 09/29/1967 URINE MICROALBUMIN-CREATININ E RATIO (uACR) 09/29/1967 TDAP/TD VACCINES (1 - Tdap) 1976 COLOGUARD 2002 COLON CANCER SCREENING 5 YEA R SIGMOIDOSCOPY 2002 [address] COLONOGRAPHY 2002 FECAL OCCULT BLOOD TEST 2002 FIT Testing (1 year) 2002 HEPATITIS C SCREENING 02/18/2021 AAA SCREEN ONCE 2022 HEMOGLOBIN A1C 05/17/2023 11/15/2022 ANNUAL WELLNESS VISIT 09/11/2024 09/12/2023 , 09/12/2023, 09/07/2022 LIPID PANEL 09/11/2024 09/12/2023, 10/28, 09/07/2022 LUNG CANCER SCREENING 01/18/2025 01/19/2024 , 11/15/2022, 11/02/2022 COVID-19 Vaccine (3 - 2024-2 6 season) 2025 03/19/2021, 08/08/2020 INFLUENZA VACCINE 02/27/2025 02/18/2020, , 02/21/2019, Additional history exists COLONOSCOPY 12/11/2028 12/11/2018 COLORECTAL CANCER SCREENING 12/11/2028 Pneumococcal Vaccine 50+ Completed 06/02/2023 ZOSTER VACCINE Completed 07/06/2023, 05/04/2023 Procedures Procedure Name Priority Date/Time Associated Diagnosis Comments CT CHEST LOW DOSE WO CANCER SCREENING Routine 01/19/2024 2:08 PM EDT Screening for lung cancer Personal history of nicotine dependence LIPID PANEL Routine 09/12/2023 10:52 AM EDT 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 Recommendation: Continue annual screening with LDCT. Lung Rads Assessment: Lung-RADS L1 - Negative, <1% chance of malignancy. Electronically Signed: Dat Adams MD 01/23/2024 8:27 AM EDT Workstation ID: [id number] Narrative 01/23/2024 8:[address] CHEST LOW DOSE CANCER SCREENING WO Date of Exam: 01/19/2024 2:02 PM EDT Indication: . Comparison: Chest CT 11/02/2022. Technique: Low dose CT imaging of the chest was performed without intravenous contrast enhancement. Automated exposure control and iterative reconstruction methods were used. Findings: No suspicious pulmonary nodule. Couple tiny partially-calcified granulomas in the right middle lobe, as well as calcified left lower lobe granuloma, are unchanged. No focal consolidation. No pleural effusion or pneumothorax. Central airways are patent. Nonaneurysmal thoracic aorta. Coronary artery calcifications. No pericardial effusion. No soft tissue abnormality. No acute or suspicious osseous lesions. Procedure Note Dat Adams MD - 01/23/2024 CT CHEST LOW DOSE CANCER SCREENING WO Date of Exam: 01/19/2024 2:02 PM EDT Indication: . Comparison: Chest CT 11/02/2022. Technique: Low dose CT imaging of the chest was performed withoutintravenous contrast enhancement. Automated exposure control anditerative reconstruction methods were used. Findings: No suspicious pulmonary nodule. Couple tiny partially-calcified granulomasin the right middle lobe, as well as calcified left lower lobe granuloma,are unchanged. No focal consolidation. No pleural effusion orpneumothorax. Central airways are patent. Nonaneurysmal thoracic aorta. Coronary artery calcifications. Nopericardial effusion. No soft tissue abnormality. No acute or suspiciousosseous lesions. IMPRESSION: Impression: No suspicious pulmonary nodule. Recommendation: Continue annual screening with LDCT. Lung Rads Assessment: Lung-RADS L1 - Negative, <1% chance of malignancy. Electronically Signed: Dat Adams MD 01/23/2024 8:27 AM EDT Workstation ID: [id number] Sean Ross MD IMG CT ORDERABLES Final Result * Lipid Panel (09/12/2023 10:52 AM EDT) Pathologist [facility] Total Cholesterol 155 100 - 199 mg/dL [facility] Triglycerides 71 0 - 149 mg/dL [facility] HDL Cholesterol 60 >39 mg/dL [facility] VLDL Cholesterol [place] 14 5 - 40 mg/dL [facility] LDL Chol Calc (NIH) 81 0 - 99 mg/dL [facility] Blood 09/12/2023 10:5 2 AM EDT 09/12/2023 N[facility]ative [facility] - 09/13/2023 6:11 AM EDT Performed at: - [address] [id number] Cooker Mechanic: Kojo Roberson PhD, Phone: [phone] Patient Fasting: Y Sean Ross MD LAB BLOOD ORDERABLES Fin al Result [facility] [address] [place] [address], [facility] [address] [place] [address], * Hemoglobin A1c (11/15/2022 7:02 AM EDT) Pathologist [facility] Hemoglobin A1C 5.60 4.80 - 5.60 % 11/15/2022 9:01 AM EDT [facility] Blood Line / Unknown 11/15/2022 7: 02 AM EDT 11/15/2022 7:12 AM EDT Narrative [facility] - 11/15/2022 9:01 AM EDT Hemoglobin A1C Ranges: Increased Risk for Diabetes 5.7% to 6.4% Diabetes >= 6.5% Diabetic Goal < 7.0% bJ Foley PA-C LAB BLOOD ORDERABLES Final R esult [facility]
[address] [place] [address], * SCANNED - COLONOSCOPY (12/11/2018) Izaiah Bay MD CHART REVIEW TABS Final Result from Last 3 Months or Most Recently Relevant to Health Maintenance Insurance [employer] HMO Advance Directives * CPR (Attempt to Resuscitate) (Latest Code Status on File) Date Activated Date Inactivated Comments 11/15/2022 8:36 AM 11/15/2022 3:50 PM Question Answer Comments Code Status (Patient has no pulse and is not breathing): CPR (Attempt to Resuscitate) Medical Interventions (Patie nt has pulse or is breathing): Full Support Release to patient: Routine Release Care Teams Food Analyst Relationship Specialty Start Date End Date Refugio Fink MD [address] [place] [address] [place] [address] PCP - General 11/29/24
--- OUTSIDE RECORDS SUMMARY | 2025-02-07 06:56 | XMS_ITS | Encounter Summary ---
Author Organization [facility] Address [address] [place] [address] Care Team Providers Care Cartridge Belt Puncher Name Role Phone Refugio Fink MD Primary Care Provider +1- [phone] Encounter Details Date Type Department Care Team (Late st Contact Info) Description 02/06/2025 Telephone [facility] [address] [place] [address] Navigator, Lung Social History Tobacco Use Types Packs/Day Years [...] encounter Miscellaneous Notes * Telephone Encounter - Gayla Lung - 02/06/2025 11:49 AM EDT Patient Call Reason for call: Upcoming Outcome of call: Broadcast call made Additional Notes: Automated Message Reminder documented in this encounter Plan of Treatment Upcoming Encounters Date Type Department Care Team (Late st Contact Info) Description 04/10/2026 3:30 PM EST Office Visit [facility] [address] [place] [address] [address] [place] [address] Beto Mccurdy MD [address] [facility] [address] [place] [address] documented as of this encounter Visit Diagnoses Not on filedocumented in this encounter Care Teams Cartridge Belt Puncher Relationship Specialty Start Date End Date Refugio Fink MD [address] [place] [address] [place] [address] PCP - General 11/29/24 documented as of this encounter
--- OUTSIDE RECORDS SUMMARY | 2025-02-07 06:56 | XMS_ITS | Encounter Summary ---
Author Organization [employer] ([place], [place], [place], [place]) Address [address] [place] [address] Care Team Providers Care Marine Service Station Attendant Name Role Phone Unavailable Primary Care Provider Unavailabl e Encounter Details Date Type Department Care Team (Late st Contact Info) Description 06/30/2018 Transcribed Document [facility] [address] [place] [address] Provider, Jaswinder Zarco MD Social [...] Notes * Cerner Conversion Note - [facility] ProviderMD - 06/30/2018 2:04 PM EST Care Management Assessment/Plan Entered On: 07/05/2018 17:21 EST Performed On: 07/05/2018 17:15 EST by Kasey Stauffer Social Worker-Bsw Care Management Note Documentation Status Complete : Yes Kasey Stauffer Social Worker-Bsw - 07/05/2018 17:15 EST Info/List/Choices Provided Patient Offered Choice/Affiliations Explained : Yes List/Info Provided Pt/Fam/Support Person : Durable medical equipment, Home health Patient/Family Notified of Plan : Yes Kasey Stauffer Social Worker-Bsw - 07/05/2018 17:15 EST Final Discharge Disposition Note-CM Final Discharge Disposition Note-CM : 07/05 Contacted by Allyssa Evans RN who reports pt is planned to discharge home today and needs RW arranged. Met with pt at the bedside. Pt denied having RW available at home and was agreeable for CM to arrange delivery. Pt was given choice for DME provider. Also discussed pt's plan for PT after discharge. Pt denied being arranged with outpatient PT or home health services prior to admission. Pt reports he prefers home health services at discharge. Provided pt with choice for home health agency. Contacted [facility] and spoke with Phil on-call. Notified Phil of referral, and she request referral to be faxed into office. Phil reports they should be able to see pt tomorrow, and if not tomorrow then they will visit him on Tuesday. Referral faxed to [facility] ( ). Spoke with Amelie on-call for [employer] [facility]. Amelie request referral be faxed in to on-call line, and reports they can delivery walker this evening. Referral faxed to [facility] ( ). Discharge To Care Management : Home Health Services (Related/SOC within 3 days)-06 Kasey Stauffer, Pick Up Driver-Edgardo - 07/05/2018 17:15 EST documented in this encounter Plan of Treatment Not on file documented as of this encounter Visit Diagnoses Not on filedocumented in this encounter
--- OUTSIDE RECORDS SUMMARY | 2025-02-07 06:56 | XMS_ITS | Encounter Summary ---
Author Organization [employer] ([place], [place], [place], [place]) Address [address] [place] [address] Care Team Providers Care Lean Sensei Name Role Phone Unavailable Primary Care Provider Unavailabl e Encounter Details Date Type Department Care Team (Late st Contact Info) Description 07/05/2018 Transcribed Document [facility] [address] [place] [address] Provider, Jaswinder Zarco MD Social [...] Miscellaneous Notes * Cerner Conversion Note - [facility] ProviderMD - 07/05/2018 9:57 AM EST Pre Procedure Adult Entered On: 07/05/2018 9:16 EST Performed On: 07/05/2018 8:57 EST by Yousif Corbett Rn Height and Weight, Clinical Dosing Height Source : Stated Height Entry Format : Rosalia Height, Feet : 5 ft(Converted to: 152 cm, 60 Inch) Height, Inches : 7 Inch(Converted to: 0 ft 7 Inch, 17.78 cm) Clinical Height : 170.18 cm Weight Source : Standing scale Weight Entry Format : Rosalia Clinical Dosing Weight : 130 kg Weight, Pounds : 286 lb Body Surface Area (BSA) : 2.36 m2 Body Mass Index : 44.9 kg/m2 (>HHI) [place] Body Weight : 65 kg Yousif Corbett Rn - 07/05/2018 8:57 EST Health Histories Smoking Status : Former smoker, quit more than 30 days ago Smokeless Tobacco Status : Never Yousif Corbett Rn - 07/05/2018 8:57 EST Social History (As Of: 07/05/2018 09:16:40 EST) Tobacco: Former smoker, quit more than 30 days ago Smoking Status. Never Smokeless Tobacco Status. Years of Use: 40. Last Used: quit Mar 14, 2018. (Last Updated: 06/30/2018 13:02:36 EST by Akosua Quiroz, RN) Alcohol: Alcohol Use History No. (Last Updated: 06/30/2018 13:02:36 EST by Akosua Quiroz, CRISTEL) Substance Abuse: Drug Use Hx: No. (Last Updated: 06/30/2018 13:02:36 EST by Akosua Quiroz, CRISTEL) Nutrition/Health: Regular (Last Updated: 06/30/2018 13:02:36 EST by Akosua Quiroz RN) Infectious Disease History Infectious Disease History : Chicken pox/Shingles, Influenza, Measles, Mumps Fever/Chills Last 48 Hours : No Travel To Regions with Travel Advisories : No Travel Outside [place] Within Last 30 Days : No Contact With Traveler to Advisory Region : No Tuberculosis Symptoms : None Yousif Corbett Rn - 07/05/2018 8:57 EST Anesthesia/Transfusion History Family History of Anesthesia Reaction : No prior transfusion(s) Transfusion History : Prior anesthesia without reaction Family History of Anesthesia Reaction : None Yousif Corbett Rn - 07/05/2018 8:57 EST Functional Assessment Living Situation : Home Patient Lives With : Child/Children Persons Assisting Patient at Home : Child/Children Mobility Assistance Prior to Admission : Independent SANTANA Hx Falls Immediate/Within 3 Months : No Current Home Treatments : CPAP Yousif Corbett Rn - 07/05/2018 8:57 EST Psychosocial History Does Someone Depend on You for Care? : No Do You Have a History of the Following? : Patient denies history Currently in Unsafe Situation : No Tried to Harm Yourself in the Past? : No Thoughts of Harming/Killing Yourself : No Yousif Corbett Rn - 07/05/2018 8:57 EST Advance Directive Patient has Advance Directive *Q : No, patient refuses Advance Directive information Yousif Corbett Rn - 07/05/2018 8:57 EST General Info Want Family/Rep/Phys Notified of Admit : No Emergency Contact #1 : Mg Emergency Contact #1 Emergency Contact #1 Relationship : son Emergency Contact #2 : . Emergency Contact #2 Phone Number : . Emergency Contact #2 Relationship : . Information Obtained From : Patient Primary Language : Hungarian Preferred Communication Mode : Verbal Communication Barrier : None Yousif Corbett Rn - 07/05/2018 8:57 EST Sleep Apnea Risk Assmt Hx of Obstructive Sleep Apnea Diagnosis : Yes BiPAP/CPAP Ordered for Home Use : Yes BiPAP/CPAP Used at Home : Yes BiPAP/CPAP Home Settings : . Home BiPAP/CPAP Device With Patient : Yes Yousif Corbett Rn - 07/05/2018 8:57 EST Mj Scale Mj Sensory Perception : No impairment Mj Moisture : Rarely moist Mj Activity : Walks frequently Mj Mobility : Slightly limited Mj Nutrition : Excellent Mj Friction and Shear : No apparent problem Mj Score : 22 Yousif Corbett Rn - 07/05/2018 8:57 EST Fall Risk Scales ABCs Fall Injury Risk Identification : Surgery ABC Fall Injury Risk : Moderate to high injury risk SANTANA Hx Falls Immediate/Within 3 Months : Yes Santana Secondary Diagnosis : No SANTANA Use of Ambulatory Aid : Crutches/Cane/Walker SANTANA IV Therapy or IV Access : Yes Santana Gait/Transferring : Normal, bedrest, immobile Santana Mental Status : Oriented to own ability Santana Fall Risk Score : 60 SANTANA Fall Scale Risk Level : 46 or > High Risk [place] Fall Interventions : Adequate lighting, Bed in low position, Frequent orientation to call device, Non-slip footwear, Room free of clutter/spills, Upper side-rails up, Wheels locked Barriers to Learning : None evident Yousif Corbett Rn - 07/05/2018 8:57 EST Valuables and Belongings Valuables and Belongings : Clothing Clothing : Common streetwear Clothing Disposition : With family Yousif Corbett Rn - 07/05/2018 8:57 EST Electronically signed by [facility], [facility] Conversion Emissions Testing And Repair Technician Cerner at 10/20/2022 12:34 PM CDT documented in this encounter Plan of Treatment Not on file documented as of this encounter Visit Diagnoses Not on filedocumented in this encounter
--- OUTSIDE RECORDS SUMMARY | 2025-02-07 06:56 | XMS_ITS | Encounter Summary ---
Author Organization [employer] ([place], [place], [place], [place]) Address [address] [place] [address] Care Team Providers Care Contracting Officer Name Role Phone Unavailable Primary Care Provider Unavailabl e Encounter Details Date Type Department Care Team (Late st Contact Info) Description 06/30/2018 Transcribed Document [facility] Radiology [address] [place] [address] Provider, Jaswinder Zarco MD Social [...] Miscellaneous Notes * Cerner Conversion Note - [facility] Haroldo ProviderMD - 06/30/2018 12:41 PM EST Patient: MARTA RAZO Age: 62 Years Sex: Male : 1955 Chief Complaint Right Knee Pain PCP BRADLEY Hennessy History of Present Illness This patient is a pleasant 62 yo WM who presents with right knee pain. The pain has been going on for 2 years but has gotten progressively worse. He describes it as a stabbing pain. It is now to the point that it is affecting his ADLs. He has tried NSAIDs and injections without relief of his pain. He has fallen. He has used a cane as an assistive device. He saw Dr Holly who evaluated him and determined that he has severe DJD affecting the right knee. Pt was offered a Right Uni-Compartmental Knee Arthroplasty and agreed to the procedure. Pt denies a h/o DVT/PE. No trouble with anesthesia in the past. Pt has a h/o COPD and KAYLIE and wears CPAP. No asthma. Review of Systems Constitutional: Neg for fevers or chills. Eyes: Neg for blurry vision or change in vision. ENT: Neg for sore throat, ear pain, or dizziness. Cardiac: Neg for chest pain or dyspnea on exertion. Respiratory: Neg for shortness of breath. Gastrointestinal: Neg for nausea, vomiting, diarrhea, or constipation. Musculoskeletal: Pos for right knee pain. Neurologic: Neg for headaches or seizures. Psychiatric: Neg for anxiety and depression. Integumentary: Neg for rash. Physical Exam Vitals & Measurements T: 36.4 ??C HR: 110(Peripheral) RR: 20 BP: 185/101 SpO2: 94% HT: 170.18 cm WT: 128.18 kg BMI: 44.3 Constitutional: This is a pleasant 62 yo WM in no acute distress. HEENT: Normocephalic, atraumatic. PEERLA. Extraocular muscles intact. Conjunctiva pink without exudate. Oropharynx pink and moist. Neck supple. No JVD. Cardiac: SI, S2. RRR. No M/R/G. Respiratory: Lungs CTA bilaterally. No wheezes, rales, or rhonchi. Abdomen: Soft, nontender, nondistended. Active bowel sounds. No visible masses. Musculoskeletal: Bilateral LE without clubbing, cyanosis or edema. Integumentary: Skin is pink, warm and dry. No rashes. Neurologic: CN II-XII grossly intact. Psychiatric: Judgment and affect appropriate. Assessment/Plan 1. Preoperative Evaluation- Right Knee Pain secondary to DJD: Proceed with surgery as scheduled with Dr Holly on 07/05/2018. Pt underwent preoperative laboratory workup and diagnostic studies. 2. KAYLIE- Continue CPAP. 3. COPD- Nebs/Inhalers prn. 4. Hypertension with elevated BP in PASS- Continue Amlodipine and Lasix. Pt had not taken his BP meds the morning of PASS appt. 5. GERD- Continue Nexium. Problem List/Past Medical History Ongoing COPD (chronic obstructive pulmonary disease) History of obstructive sleep apnea Hypertension Procedure/Surgical History right foot. Medications Home amLODIPine 10 mg oral tablet, 10 mg= 1 Tab, Oral, Daily Anoro Ellipta 62.5 mcg-25 mcg/inh inhalation powder, 1 Puff, Inhalation, Daily Lasix 20 mg oral tablet, 20 mg= 1 Tab, Oral, Daily NexIUM 40 mg oral delayed release capsule, 40 mg= 1 Cap, Oral, BID, PRN potassium chloride 20 mEq oral tablet, extended release, 20 mEq= 1 Tab, Oral, Daily ProAir HFA 90 mcg/inh inhalation aerosol, 1 Puff, Inhalation, QID, PRN Spiriva 18 mcg inhalation capsule, 18 mcg= 1 Cap, Inhalation, Daily Allergies penicillin (Unknown) Social History Alcohol Alcohol Use History No. Nutrition/Health Regular Substance Abuse Drug Use Hx: No. Tobacco Former smoker, quit more than 30 days ago Smoking Status. Never Smokeless Tobacco Status. Years of Use: 40. Last Used: quit Mar 14, 2018. Family History Pt mother at 77 wtih Dementia. Pt father from CAD at 73. Lab Results WBCs- 6.5 Hbg- 14.6 Hct- 43.3 Plts- 312 Glucose- 105 Na- 141 K- 4.1 BUN- 23 Cr- 0.82 GFR-96 Hbg A1C- 5.6 PT- 10.4 INR- 1.0 PTT- 35 UA is neg for nitrites and LE Diagnostic Results EKG- Sinus Rhythm, 63 CXR- Atelectasis vs fibrotic changes, NAD Electronically signed by Interface, [facility] Conversion Block Placer Cerner at 10/20/2022 12:34 PM CDT documented in this encounter Plan of Treatment Not on file documented as of this encounter Visit Diagnoses Not on filedocumented in this encounter
--- OUTSIDE RECORDS SUMMARY | 2025-02-07 06:56 | XMS_ITS | Encounter Summary ---
Author Organization [employer] ([place], [place], [place], [place]) Address [address] [place] [address] Care Team Providers Care Insurance Advisor Name Role Phone Unavailable Primary Care Provider Unavailabl e Encounter Details Date Type Department Care Team (Late st Contact Info) Description 06/30/2018 Transcribed Document [facility] Radiology [address] [place] [address] Provider, Jaswinder Zarco MD Social [...] Miscellaneous Notes * Cerner Conversion Note - [facility] Haroldo ProviderMD - 06/30/2018 1:59 PM EST PAT Adult Entered On: 06/30/2018 13:04 EST Performed On: 06/30/2018 12:59 EST by Akosua Quiroz RN Vital Measurements Temperature Source : Temporal artery scanning Temperature Mode : Fahrenheit Temperature, Fahrenheit : 97.6 Deg F Clinical Temperature, C : 36.4 Deg C Pulse Method : Non-Invasive BP Device Pulse Source : Brachial, Right Peripheral Pulse Rate : 110 bpm (HI) Pulse Rhythm : Regular Respiratory Rate : 20 Breaths/Min Blood Pressure Location : Arm, right upper Blood Pressure Source : Non-Invasive BP Device Blood Pressure Position : Sitting Systolic Blood Pressure : 185 mmHg (HI) Diastolic Blood Pressure : 101 mmHg (HI) Oxygen Saturation : 94 % Oxygen Therapy Mode : Room air Akosua Quiroz RN - 06/30/2018 12:59 EST Height and Weight, Clinical Dosing Height Source : Stated Height Entry Format : [place] Height, Feet : 5 ft(Converted to: 152 cm, 60 Inch) Height, Inches : 7 Inch(Converted to: 0 ft 7 Inch, 17.78 cm) Clinical Height : 170.18 cm Weight Source : Standing scale Weight Entry Format : [place] Clinical Dosing Weight : 128.18 kg Weight, Pounds : 282 lb Body Surface Area (BSA) : 2.34 m2 Body Mass Index : 44.3 kg/m2 (>HHI) [place] Body Weight : 65 kg Akosua Quiroz RN - 06/30/2018 12:59 EST Health Histories Smoking Status : Former smoker, quit more than 30 days ago Smokeless Tobacco Status : Never Akosua Quiroz RN - 06/30/2018 12:59 EST Social History (As Of: 06/30/2018 13:04:26 EST) Tobacco: Former smoker, quit more than 30 days ago Smoking Status. Never Smokeless Tobacco Status. Years of Use: 40. Last Used: quit Mar 14, 2018. (Last Updated: 06/30/2018 13:02:36 EST by Akosua Quiroz RN) Alcohol: Alcohol Use History No. (Last Updated: 06/30/2018 13:02:36 EST by Akosua Quiroz RN) Substance Abuse: Drug Use Hx: No. (Last Updated: 06/30/2018 13:02:36 EST by Akosua Quiroz RN) Nutrition/Health: Regular (Last Updated: 06/30/2018 13:02:36 EST by Akosua Quiroz RN) Infectious Disease History Infectious Disease History : Chicken pox/Shingles, Influenza, Measles, Mumps Fever/Chills Last 48 Hours : No Travel To Regions with Travel Advisories : No Travel Outside [place] Within Last 30 Days : No Contact With Traveler to Advisory Region : No Tuberculosis Symptoms : None Akosua Quiroz RN - 06/30/2018 12:59 EST Anesthesia/Transfusion History Family History of Anesthesia Reaction : No prior transfusion(s) Transfusion History : Prior anesthesia without reaction Family History of Anesthesia Reaction : None Akosua Quiroz RN - 06/30/2018 12:59 EST Functional Assessment Functional ADL Evaluation Index EBN Bathing : Independent (2) Dressing : Independent (2) Toileting : Independent (2) Transferring Bed or Chair : Independent (2) Continence : Independent (2) Feeding : Independent (2) Akosua Quiroz RN - 06/30/2018 12:59 EST ADL Index Score : 12 Akosua Quiroz RN - 06/30/2018 12:59 EST Advance Directive Patient has Advance Directive *Q : No, patient refuses Advance Directive information Akosua Quiroz RN - 06/30/2018 12:59 EST Spiritual/Cultural Needs Significant Loss/Crisis in Past 3 Years : No Significant Distress/Coping/Need Support : No Any Spiritual/Cultural Needs or Requests : No Akosua Quiroz RN - 06/30/2018 12:59 EST Psychosocial History Do You Have a History of the Following? : Patient denies history Currently in Unsafe Situation : No Tried to Harm Yourself in the Past? : No Thoughts of Harming/Killing Yourself : No Akosua Quiroz RN - 06/30/2018 12:59 EST Teaching/Learning Assessment Barriers To Learning : None evident Individuals Taught : Patient Readiness to Learn : Cooperative Akosua Quiroz RN - 06/30/2018 12:59 EST Education Topics, Periop Preadmission Perioperative Education Grid Arrival Time/Place : Verbalizes understanding CHG Preoperative Bathing/Cloths : Verbalizes understanding Infection Control : Verbalizes understanding NPO Status/Directions : Verbalizes understanding Preprocedure Preparations : Verbalizes understanding Preprocedure Tests/Labs : Verbalizes understanding Responsible Adult : Verbalizes understanding Take/Hold Medications Pre-Procedure : Verbalizes understanding Akosua Quiroz RN - 06/30/2018 12:59 EST General Info Want Family/Rep/Phys Notified of Admit : No Emergency Contact #1 : Mg Emergency Contact #1 Emergency Contact #1 Relationship : son Emergency Contact #2 : . Emergency Contact #2 Phone Number : . Emergency Contact #2 Relationship : . Information Obtained From : Patient Primary Language : Romanian Preferred Communication Mode : Verbal Communication Barrier : None Akosua Quiroz RN - 06/30/2018 12:59 EST Mj Scale Mj Sensory Perception : No impairment Mj Moisture : Rarely moist Mj Activity : Walks occasionally Mj Mobility : Slightly limited Mj Nutrition : Adequate Mj Friction and Shear : No apparent problem Mj Score : 20 Akosua Quiroz RN - 06/30/2018 12:59 EST Sleep Apnea Risk Assmt Hx of Obstructive Sleep Apnea Diagnosis : Yes BiPAP/CPAP Ordered for Home Use : Yes BiPAP/CPAP Used at Home : Yes Akosua Quiroz RN - 06/30/2018 12:59 EST Electronically signed by [facility], [facility] Conversion Monitoring Analyst Cerner at 10/20/2022 12:35 PM CDT documented in this encounter Plan of Treatment Not on file documented as of this encounter Visit Diagnoses Not on filedocumented in this encounter
--- OUTSIDE RECORDS SUMMARY | 2025-02-07 06:56 | XMS_ITS | Encounter Summary ---
Author Organization [facility] Address [address] [place] [address] Care Team Providers Care Sandwich Hand Name Role Phone Refugio Fink MD Primary Care Provider [phone] Encounter Details Date Type Department Care Team (Late st Contact Info) Description 01/08/2025 Telephone [facility] DEPT [address] [place] [address] Navigator, Lung Social History Tobacco [...] * Telephone Encounter - Gayla Lung - 01/08/2025 10:33 AM EDT Patient Call Reason for call: Upcoming Outcome of call: Broadcast call made Additional Notes: Automated Message Reminder documented in this encounter Plan of Treatment Upcoming Encounters Date Type Department Care Team (Late st Contact Info) Description 04/10/2026 3:30 PM EST Office Visit [facility] [address] [place] [address] [place] [address] Beto Mccurdy MD [address] [place] [address] documented as of this encounter Visit Diagnoses Not on filedocumented in this encounter Care Teams Sandwich Hand Relationship Specialty Start Date End Date Refugio Fink MD [address] [place] [address] [place] [address] PCP - General 11/29/24 documented as of this encounter
--- OUTSIDE RECORDS SUMMARY | 2025-02-07 06:56 | XMS_ITS | Encounter Summary ---
Author Organization [employer] ([place], [place], [place], [place]) Address [address] [place] [address] Care Team Providers Care Plywood Layup Line Back Feeder Name Role Phone Unavailable Primary Care Provider Unavailabl e Encounter Details Date Type Department Care Team (Late st Contact Info) Description 07/05/2018 Transcribed Document [facility] Radiology [address] [place] [address] Provider, Jaswinder Zarco MD Social [...] Miscellaneous Notes * Cerner Conversion Note - [facility] [place] ProviderMD - 07/05/2018 1:37 PM EST [facility] Main OR PACU Summary Primary Physician: YESSENIA VILLAGOMEZ JR, JR, MD-ORT Finalized Date/Time: 07/05/18 15:25:41 Pt. Name: MARTA RAZO D.O.B./Sex: 1955 Male Med Rec #: [id number] Physician: YESSENIA VILLAGOMEZ JR, JR, MD-ORT Financial #: [id number] Pt. Type: O Room/Bed: [facility]/3 Admit/Disch: 07/05/18 04:47:00 - Institution: [facility] OR PACU Case Times Entry 1 In PACU I 07/05/18 14:14:00 Ready for PACU 07/05/18 15:20:00 Discharge Discharge from PACU 07/05/18 15:20:00 I Last Modified By: WHIT PACHECO RN 07/05/18 15:25:27 [facility] Main OR PACU Case Times Audit 07/05/18 15:25:27 Bellman: STEPHANIE Modifier: STEPHANIE <+> 1 Ready for PACU Discharge <+> 1 Discharge from PACU I [facility] Main OR PACU Acuity Entry 1 Start Time 07/05/18 14:14:00 Stop Time 07/05/18 15:20:00 Acuity Level [facility] PACU Acuity I Last Modified By: WHIT PACHECO RN 07/05/18 15:25:35 [facility] Main OR PACU Acuity Audit 07/05/18 15:25:35 Bellman: STEPHANIE Modifier: STEPHANIE <+> 1 Stop Time Finalized By: WHIT PACHECO, RN Document Signatures Signed By: WHIT PACHECO, CRISTEL 07/05/18 15:25 Electronically signed by [facility] Conversion Fitness Services Manager Cerner at 10/20/2022 12:34 PM CDT documented in this encounter Plan of Treatment Not on file documented as of this encounter Visit Diagnoses Not on filedocumented in this encounter
--- OUTSIDE RECORDS SUMMARY | 2025-02-07 06:56 | XMS_ITS | Encounter Summary ---
Author Organization [employer] ([place], [place], [place], [place]) Address [address] [place] [address] Care Team Providers Care An/Ssn 2 4 Operator Name Role Phone Unavailable Primary Care Provider Unavailabl e Encounter Details Date Type Department Care Team (Late st Contact Info) Description 07/05/2018 Transcribed Document [facility] Radiology 1 [place] [address] Provider, Jaswinder Zarco MD [...] Miscellaneous Notes * Cerner Conversion Note - [facility] Haroldo Goldstein MD - 07/05/2018 6:49 PM EST DATE OF PROCEDURE: PREOPERATIVE DIAGNOSIS(ES): Medial compartment osteoarthritis, right knee. POSTOPERATIVE DIAGNOSIS(ES): Medial compartment osteoarthritis, right knee. PROCEDURE: Right partial knee replacement, medial. SURGEON: Eitan Holly MD ANESTHESIA: General plus regional plus local. COMPLICATIONS: None. ESTIMATED BLOOD LOSS: Minimal. TOURNIQUET TIME: One hour. COMPONENTS USED: Size medium femoral component, size C tibial component with a size 5 mm tibial poly. PROCEDURE IN DETAIL: Patient was taken to the operating room, in supine position, general anesthesia obtained. IV antibiotic prophylaxis given. Time-out observed. After elevation of the tourniquet to 300 mmHg, a midline incision, 3 to 4 inches in length was made and median arthrotomy was made up to the vastus, but the quad was left intact. Medial dissection to the MCL attachment, which was left intact. Osteophytes removed from the periphery of the medial femoral condyle and then, the tibial cutting guide was placed to make a 3 mm resection off the tibia perpendicular to long axis of the tibia equivalent with the patient's slope. Resection was made and removed from the soft tissue attachments and we then reamed the distal femur with a 0 spigot after making the posterior cut perpendicular to long axis of the femur. We then the difference between the flexion-extension gap of 4 mm and reamed additional 4 mm off the femur, after which trialing showed good and equal stability in flexion and extension throughout the arc of motion. Final preparation for the tibial keel and femur was carried out. All bony surfaces were carefully irrigated and dried, final cementation of components, excess cement carefully removed. The knee was placed in 45 degrees of flexion and the cement was allowed to harden and then, after the final poly was placed, there was no impingement of the poly in extension and good stability throughout the arc of motion. Layered closure after bleeding controlled with electrocautery. Sterile dressing, ice pack, transferred the patient to recovery room in good condition at the end of the procedure. Eitan Holly M.D. Dict: 07/05/2018 17:49:44 Trans: 07/06/2018 00:09:06 CC1: Eitan Holly M.D. documented in this encounter Plan of Treatment Not on file documented as of this encounter Visit Diagnoses Not on filedocumented in this encounter
--- OUTSIDE RECORDS SUMMARY | 2025-02-07 06:56 | XMS_ITS | Encounter Summary ---
Author Organization [employer] ([place], [place], [place], [place]) Address [address] [place] [address] Care Team Providers Care Smearer Name Role Phone Unavailable Primary Care Provider Unavailabl e Encounter Details Date Type Department Care Team (Late st Contact Info) Description 07/05/[address] [facility] Radiology [address] [place] [address] Provider, Jaswinder Zarco MD Social [...] Miscellaneous Notes * Cerner Conversion Note - [facility] Haroldo ProviderMD - 07/05/2018 8:12 PM EST Nursing Discharge Summary Entered On: 07/05/2018 19:14 EST Performed On: 07/05/2018 19:12 EST by Gisel Workman RN Discharge Documentation Discharge Date/Time : 07/05/2018 20:22 EST Shirley Pal RN - 07/05/2018 20:22 EST Patient Disposition, General : Discharge Discharge To : Home with ambulatory/outpatient follow-up Mode Of Departure, General Discharge : Private vehicle Accompanied By, Discharge : Care provider IV Discontinued : Yes Personal Belongings With Patient : Yes Prescriptions Given to Patient : Yes Number of Prescriptions Given : 8 Gisel Workman RN - 07/05/2018 19:12 EST Electronically signed by Jaswinder Gilbert Conversion Classification Case Manager Cerner at 10/20/2022 12:34 PM CDT documented in this encounter Plan of Treatment Not on file documented as of this encounter Visit Diagnoses Not on filedocumented in this encounter
--- OUTSIDE RECORDS SUMMARY | 2025-02-07 06:56 | XMS_ITS | Encounter Summary ---
Author Organization [employer] ([place], [place], [place], [place]) Address [address] [place] [address] Care Team Providers Care Veterinarian Small Animal Name Role Phone Unavailable Primary Care Provider Unavailabl e Encounter Details Date Type Department Care Team (Late st Contact Info) Description 06/30/2018 Transcribed Document [facility] 1 [place] [address] Provider dillan Zarco MD Social History Tobacco Use Types Packs/Day Years Used Date Smoking Tobacco: Never Assessed Sex and Gender Information Value Date Recorded Sex Assigned at Male 11/24/2021 8:26 PM CDT Legal Sex Male 8:26 PM CDT Gender Identity Male 11/24/2021 8:26 PM CDT Sexual Orientation Not on file documented as of this encounter Miscellaneous Notes * Cerner Conversion Note - [facility] Haroldo ProviderMD - 06/30/2018 7:21 PM EST Orthopedic Nurse Navigator Entered On: 07/03/2018 14:32 EST Performed On: 06/30/2018 18:21 EST by Maris Agudelo corporate strategy associate Nurse Navigator Assessment Attended Joint Academy : Yes Joint AcademyType : Online [employer] Date : 06/30/2018 EST Maris Agudelo RN - 07/03/2018 14:32 EST Electronically signed by [facility] Conversion Pilot Captain Cerner at 10/20/2022 12:34 PM CDT documented in this encounter Plan of Treatment Not on file documented as of this encounter Visit Diagnoses Not on filedocumented in this encounter
--- OUTSIDE RECORDS SUMMARY | 2025-02-07 06:56 | XMS_ITS | Clinical Summary ---
Author Organization [employer] ([place], [place], [place], [place]) Address [address] [place] [address] Care Team Providers Care Dredge Captain Name Role Phone Unavailable Primary Care Provider [...]
--- OUTSIDE RECORDS SUMMARY | 2025-02-07 06:56 | XMS_ITS | Encounter Summary ---
Author Organization [employer] ([place], [place], [place], [place]) Address [address] [place] [address] Care Team Providers Care Radiology Teacher Name Role Phone Unavailable Primary Care Provider Unavailabl e Encounter Details Date Type Department Care Team (Late st Contact Info) Description 07/05/[address] [facility] [address] [place] [address] Provider dillan Zarco MD Social [...] Notes * Cerner Conversion Note - [facility] Haroldo ProviderMD - 07/05/2018 6:28 PM EST Education-(VTE) / (DVT) Entered On: 07/05/2018 19:00 EST Performed On: 07/05/2018 17:28 EST by Gisel Workman RN Teaching/Learning Assessment Barriers To Learning : None evident Gisel Workman RN - 07/05/2018 19:00 EST documented in this encounter Plan of Treatment Not on file documented as of this encounter Visit Diagnoses Not on filedocumented in this encounter
--- OUTSIDE RECORDS SUMMARY | 2025-02-07 06:56 | XMS_ITS | Encounter Summary ---
Author Organization [employer] ([place], [place], [place], [place]) Address [address] [place] [address] Care Team Providers Care Hydraulic Rockbreaker Operator Name Role Phone Unavailable Primary Care Provider Unavailabl e Encounter Details Date Type Department Care Team (Late st Contact Info) Description 07/05/2018 Transcribed Document [facility] Radiology [address] [place] [address] Provider, Jaswinder Zarco MD Social [...] Miscellaneous Notes * Cerner Conversion Note - [facility] Haroldo ProviderMD - 07/05/2018 5:41 PM EST Evaluation, Physical Therapy Entered On: 07/05/2018 16:48 EST Performed On: 07/05/2018 16:41 EST by ASHOK RESTREPO, PT General Information, PT Visit Type, PT : Initial evaluation Patient Orders : No Physical Therapy Orders Active Diagnoses : No Qualifying Diagnoses Therapy Diagnosis, PT : aftercare following R UKA Admission Date : 07/05/2018 04:47 Personal Devices : Personal Devices No Devices Recorded Assistive Devices : Assistive Devices No Devices Recorded ASHOK RESTREPO, PT - 07/05/2018 16:41 EST General Status Patient Received Status : Up in chair, Chair alarm activated, Other: Ice and SCDs applied. Treatment Start Time : 07/05/2018 16:20 EST Patient Left Status : Up in chair, Chair alarm activated, RN/PCT informed, Family/Visitors at bedside, Communication board completed, All needs met and within reach, Other: Ice and SCDs applied. RN/PCT Informed Comment : RN and patient consenting to treatment this date. Treatment End Time : 07/05/2018 16:40 EST Treatment Time : 20 Minute(s) ASHOK RESTREPO, PT - 07/05/2018 16:41 EST History and Environment Patient Lives With : Child/Children Persons Assisting Patient at Home : Child/Children Prior LOF Assist with ADL Comment : Patient was independent without AD prior to surgery. History and Environment Comment, PT : Patient discharging to home with son to stay, lives alone normally, at single story home with no steps to enter or inside. Owns no DME. ASHOK RESTREPO, PT - 07/05/2018 16:41 EST Upper Extremity Upper Extremity Dominance : Right Right UE Active ROM : WFL Right UE Strength : WFL Left UE Active ROM : WFL Left UE Strength : WFL ASHOK RESTREPO PT - 07/05/2018 16:41 EST Lower Extremity RLE Active ROM : Impaired Right LE Strength : Impaired ASHOK RESTREPO, PT - 07/05/2018 16:41 EST RLE ROM Grid Knee Flexion (0-140) Active Assist : 0-100 Comment (Comment: in sitting [ASHOK RESTREPO, PT - 07/05/2018 16:41 EST] ) ASHOK RESTREPO, PT - 07/05/2018 16:41 EST LLE Active ROM : WFL Left LE Strength : WFL ASHOK RESTREPO, PT - 07/05/2018 16:41 EST Functional Mobility Mobility Grid Bed Scooting : Supervision/set-up Supine to Sit : Supervision/set-up Sit to Stand : Rehab Minimal assistance (Comment: CGA with RW [ASHOK RESTREPO, PT - 07/05/2018 16:41 EST] ) Bed to Chair : Rehab Minimal assistance (Comment: CGA with RW [ASHOK RESTREPO PT - 07/05/2018 16:41 EST] ) Stand to Sit : Rehab Minimal assistance (Comment: CGA with RW [ASHOK RESTREPO, PT - 07/05/2018 16:41 EST] ) ASHOK RESTREPO PT - 07/05/2018 16:41 EST AM PAC Basic Mobility Turning Over in Bed : None Sit Down On/Stand Up From Chair w/ Arms : A little Move Back Lying to Sitting Side of Bed : None Moving To/From a Bed to Chair : A little Need to Walk in Hospital Room : A little Climbing 3-5 Steps with a Railing : A little AM-[facility] Basic Mobility Raw Score : 20 AM-[facility] Basic Mobility Standardized Score : 47.67 AM-[facility] Basic Mobility CMS 0-100% Score : 35.83 % ASHOK RESTREPO, PT - 07/05/2018 16:41 EST Image 1 - Images currently included in the form version of this document have not been included in the text rendition version of the form. Functional Limitation Reporting, PT Functional Limitation Visit Type, PT : Initial evaluation Severity Determination Method, PT : Clinical Judgment, AM [facility] Basic Mobility Mobility G8978 - Current Mod, PT : 20 - 39% impaired, limited or restricted (CJ) Mobility G8979 - Proj Goal Mod, PT : 20 - 39% impaired, limited or restricted (CJ) Mobility G8980 - Discharge Mod, PT : 20 - 39% impaired, limited or restricted (CJ) ASHOK RESTREPO, PT - 07/05/2018 16:41 EST Gait Training/Assessment, PT Weight Bearing Order Status : WBAT Weight Bearing Status Maintained : Yes Gait Assistance Level : Assist, minimal Walking Distance : CGA with RW x 250 feet Ambulatory Devices : Walker, front wheel Gait Deviations : Yes Gait Training Comment : Patient with moderate pace, step through pattern right leading with downward gaze. No knee buckling observed, KI removed for ambulation. Demonstrated 10 SLR without quad lag. Stair(s) Ascend/Descend Training : No ASHOK RESTREPO, PT - 07/05/2018 16:41 EST Neuromuscular Reeducation, PT Balance Comment : Normal sitting balance and Fair standing balance with RW. ASHOK RESTREPO, PT - 07/05/2018 16:41 EST Neurological/Sensory Overall Sensory Response : Intact Response to Pain : Intact ASHOK RESTREPO, PT - 07/05/2018 16:41 EST Cognition Assessment, PT Orientation : Oriented x 4 ASHOK RESTREPO, PT - 07/05/2018 16:41 EST Edu Topics Physical Therapy Education Grid Balance Training : Verbalizes understanding Bed Mobility Training : Verbalizes understanding Caregiver Training : Verbalizes understanding Gait Training : Verbalizes understanding Role of Physical Therapy : Verbalizes understanding Safety : Verbalizes understanding Transfer Training : Verbalizes understanding Use of Assistive Device : Verbalizes understanding ASHOK RESTREPO, PT - 07/05/2018 16:41 EST Indication Assesessment, PT Physical Therapy Indicated : No Physical Therapy Not Indicated : Other: Length of stay, patient to DC home today. Interdisciplinary Consultation(s) Needed : No ASHOK RESTREPO, PT - 07/05/2018 16:41 EST Plan of Care, PT PT Tx Plan/Goals Established w Patient : No Reason Tx/Plan Not Established W/ Pt PT : Evaluation only, patient to discharge home from hospital on day of surgery. ASHOK RESTREPO, PT - 07/05/2018 16:41 EST Treatment Note Subjective Comment : Patient was pleasant and cooperative with treatment, reporting no pain at rest. Patient's Response to Treatment : No adverse reactions to treatment. Additional Objective Information : See Evaluation. Assessment : Patient will need family care 20/12 for next 2-3 days due to mild impulsivity and should have HHPT to follow up. Is safe to go home with family as per patient and MD wishes. Plan for Treatment : DC to home today per MD plan. ASHOK RESTREPO, PT - 07/05/2018 16:41 EST Anticipated Discharge Needs, OT/PT Anticipated Discharge to : Home, with home health Anticipated Home Equipment : Walker Anticipated D/C Provider Notified : Nursing Recommend Continued Therapy at Discharge : Yes ASHOK RESTREPO, PT - 07/05/2018 16:[address] [facility] Gait Training Each 15 Min : 1 PT Aishwaryaal Low Complexity : 1 ASHOK RESTREPO PT - 07/05/2018 16:41 EST Electronically signed by Ofelia [facility] Conversion Director Of Financial Reporting Cerner at 10/20/2022 12:34 PM CDT documented in this encounter Plan of Treatment Not on file documented as of this encounter Visit Diagnoses Not on filedocumented in this encounter
--- OUTSIDE RECORDS SUMMARY | 2025-02-07 06:57 | XMS_ITS | Encounter Summary ---
Author Organization [employer] ([place], [place], [place], [place]) Address [address] [place] [address] Care Team Providers Care Install And Repair Technician Name Role Phone Unavailable Primary Care Provider Unavailabl e Encounter Details Date Type Department Care Team (Late st Contact Info) Description 07/05/2018 Transcribed Document [facility] Radiology [address] [place] [address] Provider, Jaswinder Zarco MD Social [...] Miscellaneous Notes * Cerner Conversion Note - [facility] Haroldo ProviderMD - 07/05/2018 11:09 AM EST Peripheral Nerve Block Entered On: 07/05/2018 10:10 EST Performed On: 07/05/2018 10:09 EST by Summer Long Nurse - latonya Peripheral Nerve Block Site Marked and Visible : Yes Peripheral Nerve Block Start Date/Time : 07/05/2018 9:45 EST Verbally Confirm Pt, Site, and Procedure : Yes Site Preparation : Chlorhexidine (Hibiclens) Peripheral Nerve Block : Other: adductor canal Laterality : Right Peripheral Nerve Block Performed by : Mg Flowers MD Medication Delivery Method : Single Shot Peripheral Nerve Block Assisted by : Summer Long Nurse - latonya Ultra sound used during insertion : Yes Nerve Block Activity, Patient Tolerance : Good Peripheral Nerve Block Comment : pre op nerve block per surgeon request Peripheral Nerve Block End Date/Time : 07/05/2018 10:00 EST Summer Long Nurse - latonya - 07/05/2018 10:09 EST Electronically signed by Ofelia, [facility] Conversion Director Housekeeping Cerner at 10/20/2022 12:35 PM CDT documented in this encounter Plan of Treatment Not on file documented as of this encounter Visit Diagnoses Not on filedocumented in this encounter
--- OUTSIDE RECORDS SUMMARY | 2025-02-07 06:57 | XMS_ITS | Encounter Summary ---
Author Organization [employer] ([place], [place], [place]) Address [address] [place] [address] Care Team Providers Care Animal Killer Name Role Phone Unavailable Primary Care Provider Unavailabl e Encounter Details Date Type Department Care Team (Late st Contact Info) Description 07/05/2018 Transcribed Document [facility] [address] [place] [address] Provider, Jaswinder Zarco MD Social [...] [facility] Haroldo ProviderMD - 07/05/2018 6:14 PM EST Discharge Instructions Entered On: 07/05/2018 17:15 EST Performed On: 07/05/2018 17:14 EST by Kasey Stauffer Social Worker-Superintendent Sanitation DC Instructions HWD Stroke/TIA Discharge Ins : Open Heart Failure Discharge Ins : Open Warfarin Discharge Ins : Shirley Martinez RN - 07/05/2018 20:22 EST Medical Equipment For Home Use : [facility] [phone] Home Health Services : [facility] [phone] Kasey Stauffer Social Worker-Superintendent Sanitation - 07/05/2018 17:14 EST Heart Failure Discharge Instructions Daily Weight : Weigh yourself daily at the same time and record, Contact doctor if you gain 3 pounds overnight or 5 pounds in 1 week, Take weight log to doctor visits Heart Failure Activity : It is important to keep as active as you can and pace yourself with rest periods Smoking /Tobacco Use : Do not smoke, Smoking cessation phone number When to Call the Doctor : Increased weight of 3 pounds or more [...] belly, Dizziness, like you might pass out Shirley Pal RN - 07/05/2018 20:22 EST Stroke/TIA Discharge Instructions Individualized Stroke Risk Factors *Q : Smoking Stroke Education Handouts Given *Q : Yes Shirley Pal RN - 07/05/2018 20:22 EST Stroke Education Materials Given-Grid Activation of EMS *Q : Verbalizes understanding Follow-up Care After Discharge *Q : Verbalizes understanding Medications prescribed at DC *Q : Verbalizes understanding Risk Factors for Stroke *Q : Verbalizes understanding Warning S&S of Stroke *Q : Verbalizes understanding Shirley Pal RN - 07/05/2018 20:22 EST Stroke/TIA Signs/Symptoms to Report Immediately : Sudden onset difficulty speaking, Sudden onset difficulty understanding speech, Sudden onset change in vision, Sudden onset weakness particulary on one side of the body, Sudden onset numbness/tingling, Sudden severe headache, Sudden dizziness or trouble with gait, Call 91-1: EMS activation is crucial My LDL Level: : LDL Level No qualifying data available. Shirley Pal RN - 07/05/2018 20:22 EST Warfarin Discharge Instructions Notify Provider of Signs/Symptoms of : Significant bleeding, Clot Shirley Pal RN - 07/05/2018 20:22 EST documented in this encounter Plan of Treatment Not on file documented as of this encounter Visit Diagnoses Not on filedocumented in this encounter
--- OUTSIDE RECORDS SUMMARY | 2025-02-07 06:57 | XMS_ITS | Patient Health Record ---
Author Organization [facility] maríanancy [facility] Address [address] [place] [address] Phone [phone] Care Team Providers Care Convention Worker Name Role Phone Cristiane Osorio Unavailable [phone] Migration, Provider Unavailable Unavailable Reason For Referral No Information Medications Medication SIG (Take, Route, Frequency, Duration) Notes Start Date End Date Status Furosemide 20 MG Tablet Oral Active predniSONE 20 MG Tablet Oral Active Mupirocin 2% Ointment External Active Lisinopril 10 MG Tablet Oral Active Azithromycin 250 MG Tablet Oral Active Potassium Chloride ER 10 MEQ Tablet Extended Release Oral Active diazePAM 2 MG Tablet Oral Active Ekrqurld-Yvowaoxdg-EU 3.5-96094-4 Suspension Otic Activ e Travel Sickness 25 mg Tablet Chewable Oral *Reorder from [facility] for eRx and Interaction Alerts* Active amLODIPine Besylate 10 MG Tablet Oral Active Cefdinir 300 MG Capsule Oral Active Cephalexin 500 MG Capsule Oral Active Ondansetron 4 MG Tablet Disintegrating Oral Active Social History Social History Additional Details Category Social Info Options Details Migrated Social History Migrated Social History Tobacco Years: Unknown if ever smoked 04/23/2020 Problems Problem Type SNOMED Code ICD Code Onset Dates Problem Status W/U Status Risk Notes Problem History of suspected exposure to biological agent (29718451654335 ) Encounter for observation for suspected exposure to other biological agents ruled out (Z03.818) 0 Active confirmed Encounters Encounter Location Date Provider Diagnosis [facility] [address] [place] [address] 12/29/2024 Provider Migration [facility] [address] [place] [address] 12/30/2024 Provider Migration Plan Of Treatment No Information Insurance Providers Payer Name Payer Address Payer Phone Subscriber Number Group Number Insured Name Patient Relationship to Insured Coverage Start Date Coverage End Date [employer] [employer] [address] [place] [address] [id number] MARTA RAZO Self - patient is the insured
--- OUTSIDE RECORDS SUMMARY | 2025-02-07 06:57 | XMS_ITS | Encounter Summary ---
Author Organization [employer] ([place], [place], [place], [place]) Address [address] [place] [address] Care Team Providers Care Heel Slugger Name Role Phone Unavailable Primary Care Provider Unavailabl e Encounter Details Date Type Department Care Team (Late st Contact Info) Description 07/05/2018 Transcribed Document [facility] [address] [place] [address] ProviderJaswinder MD Social History Tobacco Use Types Packs/Day Years Used Date Smoking Tobacco: Never Assessed Sex and Gender Information Value Date Recorded Sex Assigned at Male 11/24/2021 8:26 PM CDT Legal Sex Male 8:26 PM CDT Gender Identity Male 11/24/2021 8:26 PM CDT Sexual Orientation Not on file documented as of this encounter Miscellaneous Notes * Cerner Conversion Note - [facility] Haroldo ProviderMD - 07/05/2018 9:32 AM EST Pediatric Growth Entered On: 07/05/2018 8:32 EST Performed On: 07/05/2018 8:32 EST by Antonia Ya Patient Supervisor Solder Making Height and Weight, Clinical Dosing Height Source : Stated Height Entry Format : Bath Height, Feet : 5 ft(Converted to: 152 cm, 60 Inch) Height, Inches : 7 Inch(Converted to: 0 ft 7 Inch, 17.78 cm) Clinical Height : 170.18 cm Weight Source : Standing scale Weight Entry Format : Bath Clinical Dosing Weight : 130 kg Weight, Pounds : 286 lb Body Surface Area (BSA) : 2.36 m2 Body Mass Index : 44.9 kg/m2 (>HHI) [place] Body Weight : 65 kg Antonia Ya Patient Supervisor Solder Making - 07/05/2018 8:32 EST documented in this encounter Plan of Treatment Not on file documented as of this encounter Visit Diagnoses Not on filedocumented in this encounter
--- OUTSIDE RECORDS SUMMARY | 2025-02-07 06:57 | XMS_ITS | Encounter Summary ---
Author Organization [employer] ([place], [place], [place], [place]) Address [address] [place] [address] Care Team Providers Care Rubber Trimmer Name Role Phone Unavailable Primary Care Provider Unavailabl e Encounter Details Date Type Department Care Team (Late st Contact Info) Description 07/05/2018 Transcribed Document [facility] Radiology [address] [place] [address] Provider, Jaswinder Zarco MD Social [...] Miscellaneous Notes * Cerner Conversion Note - [facility] Goldstein MD - 07/05/2018 9:23 PM EST Patient Education Materials Follows: What to expect after the Procedure: After [...] Barley. Bulgur wheat. Millet. Bran muffins. Popcorn. [place] wafer crackers. ?? Vegetables Sweet potatoes. Spinach. Kale. Artichokes. Cabbage. Broccoli. Green peas. Carrots. Squash. ?? Fruits Berries. Pears. Apples. Oranges. Avocados. Prunes and raisins. Dried figs. ?? Meats and Other Protein Sources [place], kidney, palm, and soy beans. Split peas. [...] lionel has 11 g of protein. ?? Laurens seeds - 1 oz has 5.5 g [...] floor. ?? Place frequently used items in bwnn-zz-fkodl places ?? Keep electrical cables out of [...] ? Using the bathroom. ? Using household quote clerk or toxic chemicals. ? Touching or taking [...] your foot or ankle. ? Increased pain. Neurology What You Need to Know About Warfarin [...] other medicines or supplements? Many prescription and ozoo-hkd-pxysyse medicines can interfere with warfarin. Talk with your health care provider or your pharmacist before starting or stopping any new medicines. This includes odid-rmb-iqmgnyu vitamins, dietary supplements, herbal medicines, and pain medicines. Your warfarin dosage may need to be adjusted. ??? Some common adoc-dbg-jvvtzmx medicines that may increase the risk of [...] that you work with a diet and crop nutrition scientist (dietitian). ??? Vitamin K decreases the effect [...] cooked. ??? Collards, raw or cooked. ??? Chadian chard, raw or cooked. ??? Mustard greens, raw or cooked. ??? Turnip greens, raw or cooked. ??? Parsley, raw. ??? Broccoli, cooked. ??? Noodles, eggs, and spinach, enriched. ??? Imperial sprouts, raw or cooked. ??? Beet greens, [...] diet. ??? You start or stop any jesb-myo-gvynyqr medicine, prescription medicine, or dietary supplement. ??? [...] 08/11/2016 Elsevier Interactive Patient Education ? 2017 [employer] Warfarin Coagulopathy Introduction Warfarin (Coumadin?) coagulopathy [...] care provider before taking these. Prescription and tycd-qst-yzzmkhe medicine consistency is critical to warfarin management. [...] not take or discontinue any prescribed or vepo-vyo-natvacq medicine except on the advice of your [...] K include spinach, kale, broccoli, cabbage, greens, Imperial sprouts, asparagus, bok gustavo, coleslaw, and parsley. [...] 10/21/2016 Document Reviewed: 10/24/2012 ? 2017 Elsevier Pharmacology Vitamin K Foods and Warfarin Warfarin is [...] before making changes. ??? Work with a crop nutrition scientist (dietitian) to develop a meal plan that works best for you. High vitamin K foods Foods that are high in vitamin K contain more than 100 mcg (micrograms) per serving. These include: ??? Broccoli (cooked) ? ? cup has 110 mcg. ??? Imperial sprouts (cooked) ? ? cup has 109 [...] ? ? cup has 444 mcg. ??? Chadian chard (cooked) ? ? cup has 287 [...] ? ? cup has 11 mcg. ??? [place] with peel (raw) ? ? cup has 9 mcg. ??? Grapes ? ? cup has 12 mcg. ??? Jimmy ? 1 medium has 9 mcg. ??? [...] poultry. ??? Milk and dairy products. ??? Laurens seeds. Actual amounts of vitamin K in [...] 03/13/2010 Document Revised: 12/05/2016 Document Reviewed: 08/18/2016 Elsevier Interactive Patient Education ? 2017 [employer] documented in this encounter Plan of Treatment Not on file documented as of this encounter Visit Diagnoses Not on filedocumented in this encounter
--- OUTSIDE RECORDS SUMMARY | 2025-02-07 06:57 | XMS_ITS | Encounter Summary ---
Author Organization [employer] ([place], [place], [place], [place]) Address [address] [place] [address] Care Team Providers Care Striper Name Role Phone Unavailable Primary Care Provider Unavailabl e Encounter Details Date Type Department Care Team (Late st Contact Info) Description 08/06/2019 Transcribed Document [facility] [address] [place] [address] ProviderJaswinder MD Social History Tobacco Use Types Packs/Day Years Used Date Smoking Tobacco: Never Assessed Sex and Gender Information Value Date Recorded Sex Assigned at Male 11/24/2021 8:26 PM CDT Legal Sex Male 8:26 PM CDT Gender Identity Male 11/24/2021 8:26 PM CDT Sexual Orientation Not on file documented as of this encounter Miscellaneous Notes * Cerner Conversion Note - [facility] Haroldo ProviderMD - 08/06/2019 2:45 PM EDT Orthopedic Nurse Navigator Entered On: 08/06/2019 13:46 EDT Performed On: 08/06/2019 13:45 EDT by Bea Stroud RN Surgical Services Orthopedic Nurse Navigator Assessment Joint Navigator Assessment Note : 1 year post op surveys. Bea Stroud RN Surgical Services - 08/06/2019 13:45 EDT documented in this encounter Plan of Treatment Not on file documented as of this encounter Visit Diagnoses Not on filedocumented in this encounter
--- OUTSIDE RECORDS SUMMARY | 2025-02-07 06:57 | XMS_ITS | Encounter Summary ---
Author Organization [employer] ([place], [place], [place], [place]) Address [address] [place] [address] Care Team Providers Care Die Try Out Worker Name Role Phone Unavailable Primary Care Provider Unavailabl e Encounter Details Date Type Department Care Team (Late st Contact Info) Description 07/05/2018 Transcribed Document [facility] Radiology [address] [place] [address] Provider, Jaswinder Zarco MD Social [...] Miscellaneous Notes * Cerner Conversion Note - [facility] Harolod ProviderMD - 07/05/2018 1:37 PM EST NORY Main OR IntraOp Summary Primary Physician: YESSENIA VILLAGOMEZ JR, JR, MD-ORT Finalized Date/Time: 07/05/18 14:03:51 Pt. Name: MARTA MCDOWELLO.B./Sex: 1955 Male Med Rec #: [id number] Physician: YESSENIA VILLAGOMEZ JR, JR, MD-ORT Financial #: [id number] Pt. Type: O Room/Bed: EAS/3 Admit/Disch: 07/05/18 04:47:00 - Institution: [facility] [place] IntraOp Case Attendance Entry 1 Entry 2 Entry 3 Case Attendee YESSENIA VILLAGOMEZ JR, JR, Vicky Bravo, Jesse JohnsnoORNorberto Role Performed Surgeon/Proceduralist, Window Cutter, First Scrub, First First Time In 07/05/18 12:03:00 07/05/18 12:03:00 07/05/18 12:03:00 Time Out 07/05/18 13:27:00 07/05/18 13:59:00 07/05/18 13:59:00 Procedure Knee Unicompartmental Knee Unicompartmental Knee Unicompartmental Replacement Replacement Replacement Other Attendee Superficial Wound Closed By: Last Modified By: Vicky Bravo Rn Daskalakis, Hope, Rn Daskalakis, Hope, Rn 07/05/18 13:59:16 07/05/18 13:59:16 07/05/18 13:59:16 Entry 4 Entry 5 Entry 6 Case Attendee OTHER, ATTENDEE #1 Pamella Duke, OTHER, ATTENDEE #2 Rn-Surgery Role Performed Student Window Cutter, First Vendor Time In 07/05/18 12:03:00 07/05/18 11:24:00 07/05/18 12:03:00 Time Out 07/05/18 13:59:00 07/05/18 11:42:00 07/05/18 13:42:00 Procedure Knee Unicompartmental Knee Unicompartmental Knee Unicompartmental Replacement Replacement Replacement Other Attendee RIANA CHAMBERLAIN BREAK TATIANNA BRIGHT -- BIOMET Superficial Wound Closed By: Last Modified By: Vicky Bravo Rn Daskalakis, Hope, Vicky Callaway Rn 07/05/18 13:59:16 07/05/18 13:59:16 07/05/18 13:59:16 Entry 7 Entry 8 Entry 9 Case Attendee LIANA RIVERA MD PARKER, SETH, Livier Powell, Financial Reporting Specialist Role Performed Anesthesiologist Athletic Shoe Designer, First Scrub, First Time In 07/05/18 12:03:00 07/05/18 12:03:00 07/05/18 12:03:00 Time Out 07/05/18 13:05:00 07/05/18 13:59:00 07/05/18 12:15:00 Procedure Knee Unicompartmental Knee Unicompartmental Knee Unicompartmental Replacement Replacement Replacement Other Attendee BREAK Superficial Wound Closed By: Last Modified By: DaskaVicky coats Rn Daskalakis, Hope, Vicky Callaway, Giovanni 07/05/18 13:59:16 07/05/18 13:59:16 07/05/18 13:59:16 Entry 10 Case Attendee AMERICO CASILLAS, COPIER AND PRINTER FIELD TECHNICIAN Role Performed COPIER AND PRINTER FIELD TECHNICIAN/Nurse Seismic Computer Time In 07/05/18 13:04:00 Time Out 07/05/18 13:59:00 Procedure Knee Unicompartmental Replacement Other Attendee Superficial Wound Closed By: Last Modified By: Vicky Bravo Rn 07/05/18 13:59:16 [facility] IntraOp Case Attendance Audit 07/05/18 13:59:16 Cashier And Waiter/Waitress: [id number] Modifier: [id number] <*> Procedure Knee Unicompartmental Replacement 2 <+> Time Out 2 <*> Procedure Knee Unicompartmental Replacement 3 <+> Time Out 3 <*> Procedure Knee Unicompartmental Replacement 4 <+> Time Out 4 <*> Procedure Knee Unicompartmental Replacement 5 <*> Procedure Knee Unicompartmental Replacement 6 <*> Procedure Knee Unicompartmental Replacement 7 <*> Procedure Knee Unicompartmental Replacement 8 <+> Time Out 8 <*> Procedure Knee Unicompartmental Replacement 9 <*> Procedure Knee Unicompartmental Replacement 10 <+> Time Out 10 <*> Procedure Knee Unicompartmental Replacement 07/05/18 13:42:58 Cashier And Waiter/Waitress: [id number] Modifier: [id number] <+> Time Out 6 <*> Procedure Knee Unicompartmental Replacement 07/05/18 13:27:37 Cashier And Waiter/Waitress: [id number] Modifier: [id number] <+> Time Out 1 <*> Procedure Knee Unicompartmental Replacement 07/05/18 13:08:34 Cashier And Waiter/Waitress: [id number] Modifier: [id number] <+> Time Out 7 <*> Procedure Knee Unicompartmental Replacement <+> 10 Case Attendee <+> 10 Role Performed <+> 10 Time In <+> 10 Procedure 07/05/18 12:51:55 Cashier And Waiter/Waitress: [id number] Modifier: [id number] <+> Time Out 9 <*> Procedure Knee Unicompartmental Replacement 07/05/18 12:44:11 Cashier And Waiter/Waitress: [id number] Modifier: [id number] <+> 1 Time In <+> 1 Procedure 2 <+> Time In 2 <*> Procedure Knee Unicompartmental Replacement 3 <+> Time In 3 <*> Procedure Knee Unicompartmental Replacement 4 <+> Time In 4 <*> Procedure Knee Unicompartmental Replacement 5 <*> Procedure Knee Unicompartmental Replacement 6 <+> Time In 6 <*> Procedure Knee Unicompartmental Replacement 7 <+> Time In 7 <*> Procedure Knee Unicompartmental Replacement 8 <+> Time In 8 <*> Procedure Knee Unicompartmental Replacement 9 <+> Time In 9 <*> Procedure Knee Unicompartmental Replacement 07/05/18 11:43:48 Cashier And Waiter/Waitress: [id number] Modifier: [id number] <+> 8 Case Attendee <+> 8 Role Performed <+> 8 Procedure <+> 9 Case Attendee <+> 9 Role Performed <+> 9 Procedure <+> 9 Other Attendee 07/05/18 11:42:34 Cashier And Waiter/Waitress: [id number] Modifier: [id number] <+> Time Out 5 <*> Procedure Knee Unicompartmental Replacement 5 <+> Other Attendee <+> 7 Case Attendee <+> 7 Role Performed <+> 7 Procedure [facility] IntraOp Case Times Entry 1 Patient In Room Time 07/05/18 12:03:00 Out Room Time 07/05/18 13:59:00 Anesthesia Start Time 07/05/18 12:03:00 Stop Time 07/05/18 13:59:00 Anesthesia Ready 07/05/18 12:03:00 Surgery / Procedure Times Start Time 07/05/18 12:37:00 Stop Time 07/05/18 13:57:00 Last Modified By: Vicky Bravo Rn 07/05/18 13:59:14 [facility] IntraOp Case Times Audit 07/05/18 13:59:14 Cashier And Waiter/Waitress: [id number] Modifier: [id number] <+> 1 Out Room Time <+> 1 Stop Time <+> 1 Stop Time [facility] IntraOp Cautery Entry 1 ESU Identification Cautery Type Monopolar ESU ID Number [id number] ID Type Hospital Number Cautery Settings Cut Setting 40 Coag Setting 40 ESU Grounding Pad Ground Pad Type Adult Grounding Pad Site Left thigh Grounding Pad Vicky Bravo Rn Applied By Grounding Pad Site Warm, dry and intact Skin Condition Before Cautery Last Modified By: Vicky Bravo Rn 07/05/18 11:29:20 [facility] IntraOp Communication Entry 1 Communication To Family/Significant other Comment STARTED Communication By Vicky Bravo Rn Date and Time 07/05/18 12:41:00 Last Modified By: Vicky Bravo Rn 07/05/18 12:42:05 [facility] IntraOp Counts Verification Entry 1 Entry 2 Procedure Knee Unicompartmental Knee Unicompartmental Replacement Replacement Count Info Count Type Sponge, Sharps, Sponge, Sharps, Miscellaneous Miscellaneous Counts Verification Baseline/pre-procedure Before wound closure Sequence Count Results Not Applicable Correct, surgeon notified If Incorrect or Waived complete the Counts Action Taken form: If Intentional Retention, complete the Intential Retention form: Counts Performed By Count Performed By Jesse Mcdowell Mark (Scrub) Count Performed By Vicky Bravo Rn Daskalakis, Hope Rn (RN) Last Modified By: Vicky Bravo Rn Daskalakis, Hope, Rn 07/05/18 11:44:12 07/05/18 13:42:43 [facility] IntraOp Counts Verification Audit 07/05/18 13:42:43 Cashier And Waiter/Waitress: [id number] Modifier: [id number] <+> 2 Procedure <+> 2 Count Type <+> 2 Counts Verification Sequence <+> 2 Count Results <+> 2 Count Performed By (Scrub) <+> 2 Count Performed By (RN) [facility] IntraOp Counts Final Entry 1 Procedure Knee Unicompartmental Replacement Final Count Info Count Type Sponge, Sharps, Miscellaneous Counts Verification Skin Closure/end of Sequence procedure Count Results Correct, surgeon notified Counts Performed By Count Performed By Jesse Mcdowell (Scrub) Count Performed By Vicky Bravo Rn (RN) Last Modified By: Vicky Bravo Rn 07/05/18 13:34:01 [facility] IntraOp Departure from OR Entry 1 Integumentary Assessment Transfer/Handoff Transfer to PACU Phase I Post-op Transport Bed (including Via specialty) Patient Transport Vicky Bravo Rn, Accompanied by AMERICO CASILLAS CRNA Last Modified By: Vicky Bravo Rn 07/05/18 13:24:18 [facility] IntraOp Departure from OR Audit 07/05/18 13:24:18 Cashier And Waiter/Waitress: [id number] Modifier: [id number] 1 <*> Patient Transport Accompanied by LIANA RIVERA MD E IntraOp Dressing and Packing Entry 1 Type Dressing Location RIGHT KNEE Wound Dressing Item Melchor, Steristrip Supplemental Limb immobilizer, Cold Applications pack Applied By FARIBA MEREDITH, FA Other Comments SILVER MEPILEX DRESSING APPLIED. Last Modified By: Vicky Bravo Rn 07/05/18 14:03:50 [facility] IntraOp Dressing and Packing Audit 07/05/18 14:03:50 Cashier And Waiter/Waitress: [id number] Modifier: [id number] 1 <*> Wound Dressing Item Melchor, Webril, 4x4's, Steristrip 07/05/18 13:51:20 Cashier And Waiter/Waitress: [id number] Modifier: [id number] 1 <*> Wound Dressing Item Melchor, Webril, 4x4's 07/05/18 13:42:18 Cashier And Waiter/Waitress: [id number] Modifier: [id number] 1 <*> Wound Dressing Item Melchor, Webril, 4x4's, Xeroform, Steristrip 1 <+> Other Comments [facility] IntraOp Fire Risk Assessment Entry 1 Fire Info Surgical Site or 0- No Incision Above the Xyphoid Open O2 Source 0- No (Mask or Cannula) Available Ignition 1- Yes (ESU, Laser, Light Source) Fire Risk 1 Assessment Score Fire Score Fire Risk Yes Assessment Complete Fire Risk Pamella Duke, Assessment Verified Rn-Surgery By Fire Risk 07/05/18 11:25:00 Assessment Verified Date/Time Fire Risk Standard Fire Yes Safety Precautions Followed Last Modified By: Vicky Bravo Rn 07/05/18 11:26:03 Saleem IntraOp General Case Shoes Salesperson 1 Case Information OR OR 02 [facility] [place] Case Level 1 Room Verified Yes Wound Class I - Clean Specialty SN Orthopedic ASA Class 3 Diagnosis Preop Diagnosis SEVERE DJD RIGHT KNEE Postop Same As Preop Yes Postop Diagnosis SEVERE DJD RIGHT KNEE Last Modified By: Vicky Bravo Rn 07/05/18 12:44:03 [facility] IntraOp Implant Log Entry 1 Entry 2 Entry 3 Type Implant (Synthetic) Implant (Synthetic) Implant (Synthetic) Implant Log Implant Type Bone Cement Hardware Hardware Tissue Implant Type Implant CEMENT BONE SURG SMPLX COMP FEM PARTIAL KNEE COMP TIB UNIKNEE OX RM Identification P [facility] [id number] [id number] Description Implant Quantity 1 1 1 Implant Site RIGHT KNEE RIGHT KNEE RIGHT KNEE Implant Identification Model Number Implant Identification Serial Number Implant [id number] Identification Lot Number Implant Karl:Karl Biomet Biomet:[employer] Identification Orthopaedics Internal Control Specialist Name: Implant [id number] Identification Catalog Number Implant Size Implant Has an Yes Yes Yes Expiration Date Implant Expiration 08/27/20 04/18/28 09/16/25 Date Wasted Radioactive Material Time Implanted Tissue Implant Continue for Tissue Implant Documentation Tissue Identification Number Graft Prep Per Internal Control Specialist Instructions: Tissue Preparation Method: Reconstitution Solution: Reconstitution Solution Lot Number Reconstitution Solution Expiration Date: Thawing Solution Thawing Solution Lot Number Thawing Solution Expiration Date Preparation Materials, Other Preparation Materials, Other Lot Number Preparation Materials, Other Expiration Date Tissue Prepared/Processed By Internal Control Specialist Paperwork Completed Implant Type Comment Last Modified By: Vicky Bravo Rn Daskalakis, Hope, Rn Daskalakis, Hope, Rn 07/05/18 13:12:20 07/05/18 13:12:20 07/05/18 13:12:20 Entry 4 Type Implant (Synthetic) Implant Log Implant Type Hardware Tissue Implant Type Implant BEARING MENISCAL Identification ALLAN DUNN [id number] Description Implant Quantity 1 Implant Site RIGHT KNEE Implant Identification Model Number Implant Identification Serial Number Implant [id number] Identification Lot Number Implant Biomet:[employer] Identification Internal Control Specialist Name: Implant [id number] Identification Catalog Number Implant Size Implant Has an Yes Expiration Date Implant Expiration 11/05/21 Date Wasted Radioactive Material Time Implanted Tissue Implant Continue for Tissue Implant Documentation Tissue Identification Number Graft Prep Per Internal Control Specialist Instructions: Tissue Preparation Method: Reconstitution Solution: Reconstitution Solution Lot Number Reconstitution Solution Expiration Date: Thawing Solution Thawing Solution Lot Number Thawing Solution Expiration Date Preparation Materials, Other Preparation Materials, Other Lot Number Preparation Materials, Other Expiration Date Tissue Prepared/Processed By Internal Control Specialist Paperwork Completed Implant Type Comment Last Modified By: Vicky Bravo Rn 07/05/18 13:24:00 [facility] IntraOp Implant Log Audit 07/05/18 13:24:00 Cashier And Waiter/Waitress: [id number] Modifier: [id number] <+> 4 Implant Identification Description <+> 4 Implant Identification Lot Number <+> 4 Implant Identification Internal Control Specialist Name: <+> 4 Implant Expiration Date <+> 4 Implant Site <+> 4 Implant Quantity <+> 4 Implant Identification Catalog Number <+> 4 Implant Type <+> 4 Implant Has an Expiration Date <+> 4 Type [facility] IntraOp Intraoperative Assessment Entry 1 Valid History / Yes Physical in Chart Preoperative Yes Checklist Reviewed/Evaluated Allergies Reviewed Yes Patient is Latex No Sensitive Level of WDL Consciousness (WDL = Alert, Oriented to Person, Place, and Time) Skin Assessment Yes Verified Present Upon IVs Arrival to OR Last Modified By: Vicky Bravo Rn 07/05/18 11:27:00 [facility] IntraOp Intraoperative Equipment Entry 1 Type Equipment Equipment Equipment Chioma Suction System Intraop Monitoring Antiembolic Devices Antiembolic Devices Sequential compression device, knee high Antiembolic Device Left Location Scopes Photo/Video Documentation Photo No Video No Last Modified By: Vicky Bravo Rn 07/05/18 11:27:49 [facility] IntraOp Medication Admin Entry 1 Entry 2 Medication/Irrigant hydrogen peroxide 3% - ANESTHETIC COCKTAIL-DAHLIA [id number] Combo Med List Time Administered Route of IRRIGATION Administration Dose Dose 30 Unit of Measure ml ml Volume 473 Administered By YESSENIA VILLAGOMEZ JR, JR, HUFF JR, WALLACE JR, MD-ORT MD-ORT Procedure Irrigation Irrigant Volume In Irrigant Volume Out Last Modified By: Vicky Bravo Rn Daskalakis, Hope, Rn 07/05/18 12:43:04 07/05/18 12:43:04 [facility] IntraOp Patient Positioning Entry 1 Procedure Knee Unicompartmental Replacement Body Position Supine Left Arm Position Secured on padded arm board Right Arm Position Secured on padded arm board Left Leg Position Uncrossed, parallel Right Leg Position Secured in Leg Mcdonough Feet Uncrossed Yes Pressure Points Yes Checked Positioning Devices Safety Strap, Chest, Pillows, Other Device Position OPERATIVE LEG PLACED AND SECURED IN THE [place] LEG MCDONOUGH Positioned By YESSENIA VILLAGOMEZ JR, JR, MD-ORT, Vicky Bravo Rn, LIANA RIVERA MD, FARIBA MEREDITH, LUIS CARLOS Position Verified Positioning Yes Verified by Anesthesia Positioning Yes Verified by Surgeon Last Modified By: Vicky Bravo Rn 07/05/18 12:53:12 General Comments: [place] LEG MCDONOUGH [facility] IntraOp Patient Positioning Audit 07/05/18 12:53:12 Cashier And Waiter/Waitress: [id number] Modifier: [id number] 1 <*> Procedure Knee Unicompartmental Replacement 1 <*> Procedure Knee Unicompartmental Replacement 1 <*> Procedure Knee Unicompartmental Replacement 1 <*> Procedure Knee Unicompartmental Replacement 1 <*> Procedure Knee Unicompartmental Replacement 1 <*> Positioning Devices Safety Strap, Chest, Pillows, Other 1 <*> Positioning Devices Safety Strap, Chest, Pillows, Other 1 <*> Positioning Devices Safety Strap, Chest, Pillows, Arthroscopy Knee Mcdonough 1 <*> Positioning Devices Safety Strap, Chest, Pillows, Arthroscopy Knee Mcdonough 1 <*> Positioning Devices Safety Strap, Chest, Pillows, Arthroscopy Knee Mcdonough 1 <*> Device Position OPERATIVE LEG PLACED AND SECURED IN THE [place] LEG MCDONOUGH 1 <*> Device Position OPERATIVE LEG PLACED AND SECURED IN THE [place] LEG MCDONOUGH 1 <*> Device Position OPERATIVE LEG PLACED AND SECURED IN THE [place] LEG MCDONOUGH [facility] IntraOp Sign In Entry 1 Patient, Site, Yes Procedure Identified Surgical Consent Yes Confirmed Relevant Surgical Yes Documents Available Surgical Site Yes Marked by person performing procedure Anesthesia Machine Yes Check Completed Medication Checks Yes Completed Allergies Yes Airway Difficult No Airway/Aspiration Risk Difficult Yes Airway/Aspiration Intervention Equipment Available Blood Loss Risk No Blood Loss Yes Intervention Equipment Prepared and Ready Blood Identifiers Not applicable Verified Per Policy Hypothermia Risk Yes Warming Measures Yes Taken Last Modified By: Vicky Bravo Rn 07/05/18 11:26:33 [facility] Intra Op Sign Out Entry 1 RN Confirmation Surgical Yes Procedure(s) Identified Instrument, Sponge Yes and Sharps Counts Correct/Documented Equipment Problems Yes Documented Specimen Labeled Yes Correctly Urinary Catheter N/A Documented in IView Burch Patient Yes Recovery Concerns Reviewed with Anesthesia Provider, Surgeon and RN Burch Patient Yes Management Concerns Reviewed with Anesthesia Provider, Surgeon and RN Safety Checklist Yes Elements Complete? RN Sign Out Vicky Bravo Rn Signature RN Sign Out 07/05/18 13:59:00 Signature Date/Time Plan of Care Outcome - Fire Risk OUTCOME STATEMENT: Goal met Patient is free from injury related to surgical fire Plan of Care Outcome - Pt Positioning OUTCOME STATEMENT: Goal met Absence of signs and symptoms of positioning injury. Plan of Care Outcome - Skin Prep OUTCOME STATEMENT: Goal met Intraoperative care is consistent with measures to prevent infection Plan of Care Outcome - Xray/Images OUTCOME STATEMENT: N/A Absence of observable signs or symptoms of radiation injury Plan of Care Outcome - Counts OUTCOME STATEMENT: Goal met Absence of signs and symptoms of injury related to extraneous objects Last Modified By: Vicky Bravo Rn 07/05/18 13:59:25 [facility] Intra Op Sign Out Audit 07/05/18 13:59:25 Cashier And Waiter/Waitress: [id number] Modifier: [id number] <+> 1 RN Sign Out Signature Date/Time [facility] IntraOp Skin Prep Entry 1 Procedure Knee Unicompartmental Replacement Prescribed Yes Pre-Surgical Prep Completed Prep Area RIGHT LEG AND FOOT Intraop Prep Prep Agents Chloraprep Prep by Vicky Bravo Rn Hair Removal Methods No hair removal performed Last Modified By: Vicky Bravo Rn 07/05/18 12:02:58 [facility] IntraOp Surgical Procedures Entry 1 Procedure Knee Unicompartmental Replacement Additional RIGHT PARTIAL KNEE Procedure REPLACEMENT Description Primary Procedure Yes Primary Surgeon YESSENIA VILLAGOMEZ JR, JR, MD-ORT Start 07/05/18 12:37:00 Stop 07/05/18 13:57:00 Anesthesia Type General Specialty SN Orthopedic Wound Class I - Clean Last Modified By: Vicky Bravo Rn 07/05/18 13:59:15 [facility] IntraOp Surgical Procedures Audit 07/05/18 13:59:15 Cashier And Waiter/Waitress: [id number] Modifier: [id number] <+> 1 Stop [facility] IntraOp Temp Regulation Devices Entry 1 Temp Regulation Temperature Forced Air Warming Regulation Device device Temperature Full body Regulation Site Temperature Device 43 Setting Last Modified By: Vicky Bravo Rn 07/05/18 11:28:21 [facility] IntraOp Time Out Entry 1 Procedure to be Knee Unicompartmental Performed Replacement Time Out Time Out Pause Time 07/05/18 12:36:00 All activity Yes suspended (unless life threatening emergency) Team Verbally Correct patient Confirms Information identity, Correct side and site are marked, Consent form is present and accurate, Agreement on the procedure to be done, Correct patient position, Relevant images/results properly labeled/appropriately displayed, Confirm antibiotics have been administered, Confirm the skin prep has dried, Confirm prosthesis/implant/devic e is present, Performed in location of procedure after prepped/draped Antibiotic Yes Prophylaxis Administered Or In Progress Within the Last 60 Minutes Beta Antonio N/A Administered Venous Yes Thromboembolism Prophylaxis Required Anticipated Critical Events Surgeon None expected Anesthesia Provider None expected Nursing Assures Sterility of instruments, Equipment concerns or issues, Implant Availability Essential Imaging N/A Labeled and Displayed Last Modified By: Vicky Bravo Rn 07/05/18 12:41:45 [facility] IntraOp Tourniquet Entry 1 Type Pneumatic Setting 350 mmHg Pheumatic Yes Tourniquet Checked Per Protocol Size 34 inches Placement Thigh, right upper Skin Protection - Yes Padded Under Cuff Applied By YESSENIA VILLAGOMEZ JR, JR, MD-ORT Removed By FARIBA MEREDITH FA Jorge Start Time 07/05/18 12:37:00 Stop Time 07/05/18 13:55:00 Last Modified By: Vicky Bravo Rn 07/05/18 13:55:59 [facility] IntraOp Tourniquet Audit 07/05/18 13:55:59 Cashier And Waiter/Waitress: [id number] Modifier: [id number] <+> 1 Stop Time 07/05/18 12:43:28 Cashier And Waiter/Waitress: [id number] Modifier: [id number] 1 <*> Applied By Vicky Bravo Rn 1 <+> Removed By 1 <+> Start Time Case Comments <None> Finalized By: Vicky Bravo Rn Document Signatures Signed By: Vicky Bravo Rn 07/05/18 14:03 documented in this encounter Plan of Treatment Not on file documented as of this encounter Visit Diagnoses Not on filedocumented in this encounter
--- OUTSIDE RECORDS SUMMARY | 2025-02-07 06:57 | XMS_ITS | Encounter Summary ---
Author Organization [employer] ([place], [place], [place], [place]) Address [address] [place] [address] Care Team Providers Care Branch Service Representative Name Role Phone Unavailable Primary Care Provider Unavailabl e Encounter Details Date Type Department Care Team (Late st Contact Info) Description 07/05/2018 Transcribed Document [facility] Radiology [address] [place] [address] Provider, Jaswinder Zarco MD Social [...] Miscellaneous Notes * Cerner Conversion Note - [facility] Haroldo ProviderMD - 07/05/2018 8:19 PM EST [facility] [address] , [place] [address] Patient Copy Patient Information: Name: MARTA RAZO Current Date: 07/05/2018 19:19:57 : 1955 Patient Address: [address] [address] Patient Attending Physician: BRIDGETTE ARTHUR MD-INT Primary Care Provider: EDITH LUONG MD Primary Care Provider Discharge Diagnosis: obstructive sleep apnea; COPD (chronic obstructive pulmonary disease); Hypertension; Morbid obesity with BMI of 40.0-44.9, adult; Status post unicompartmental knee replacement, right; Unilateral primary osteoarthritis, right knee Weight on Admission: 282 lb, 0 oz Comment: Follow-up Instructions: With: Address: When: YESSENIA VILLAGOMEZ [address] [place], [place] [id number] [employer] In 13 days 07/18/2018 Comments: Appointment has been made Discharge Instructions: Medical Equipment for Home Use: [facility] [phone] Home Health Services: [facility] [phone] Immunizations Documented During Stay: No Immunizations Found [...] before making changes. ??? Work with a coastal and estuary specialist (dietitian) to develop a meal plan that works best for you. High vitamin K foods Foods that are high in vitamin K contain more than 100 mcg (micrograms) per serving. These include: ??? Broccoli (cooked) ? ? cup has 110 mcg. ??? Lovell sprouts (cooked) ? ? cup has 109 [...] ? ? cup has 444 mcg. ??? Australian chard (cooked) ? ? cup has 287 [...] ? ? cup has 11 mcg. ??? [place] with peel (raw) ? ? cup has 9 mcg. ??? Grapes ? ? cup has 12 mcg. ??? [place] ? 1 medium has 9 mcg. ??? [...] poultry. ??? Milk and dairy products. ??? Larimer seeds. Actual amounts of vitamin K in [...] 03/13/2010 Document Revised: 12/05/2016 Document Reviewed: 08/18/2016 [employer] Interactive Patient Education ? 2017 [employer] What You Need to Know About [...] other medicines or supplements? Many prescription and royd-ahj-mzboini medicines can interfere with warfarin. Talk with your health care provider or your pharmacist before starting or stopping any new medicines. This includes dofz-auc-wknvbza vitamins, dietary supplements, herbal medicines, and pain medicines. Your warfarin dosage may need to be adjusted. ??? Some common ddvn-ejm-huiwywy medicines that may increase the risk of [...] that you work with a diet and coastal and estuary specialist (dietitian). ??? Vitamin K decreases the effect [...] cooked. ??? Collards, raw or cooked. ??? Australian chard, raw or cooked. ??? Mustard greens, raw or cooked. ??? Turnip greens, raw or cooked. ??? Parsley, raw. ??? Broccoli, cooked. ??? Noodles, eggs, and spinach, enriched. ??? Lovell sprouts, raw or cooked. ??? Beet greens, [...] diet. ??? You start or stop any cwwy-xqj-mhkuxtb medicine, prescription medicine, or dietary supplement. ??? [...] 05/16/2006 Document Revised: 01/25/2017 Document Reviewed: 08/11/2016 [employer] Interactive Patient Education ? 2017 [employer] Warfarin Coagulopathy Introduction Warfarin (Coumadin?) coagulopathy refers [...] care provider before taking these. Prescription and xpqm-zky-hhrsvsn medicine consistency is critical to warfarin management. [...] not take or discontinue any prescribed or qnfs-onk-eqbjhip medicine except on the advice of your [...] K include spinach, kale, broccoli, cabbage, greens, Lovell sprouts, asparagus, bok gustavo, coleslaw, and parsley. [...] Barley. Bulgur wheat. Millet. Bran muffins. Popcorn. Buffalo wafer crackers. ?? Vegetables Sweet potatoes. Spinach. Kale. Artichokes. Cabbage. Broccoli. Green peas. Carrots. Squash. ?? Fruits Berries. Pears. Apples. Oranges. Avocados. Prunes and raisins. Dried figs. ?? Meats and Other Protein Sources [place], kidney, palm, and soy beans. Split peas. [...] lionel has 11 g of protein. ?? Larimer seeds - 1 oz has 5.5 g [...] floor. ?? Place frequently used items in onjw-ly-diokk places ?? Keep electrical cables out of [...] ? Using the bathroom. ? Using household kayak maker or toxic chemicals. ? Touching or taking [...] What is aspirin? Aspirin is a salicylate (gp-ZFP-mn-ate). It works by reducing substances in the [...] may report side effects to FDA at 2-117-NPH9190. What other drugs will affect aspirin? Ask [...] drugs may affect aspirin, including prescription and kvph-lvw-naqnbap medicines, vitamins, and herbal products. Not all [...] to ensure that the information provided by [employer] ('[employer]') is accurate, up-to-date, and complete, but no guarantee is made to that effect. Drug information contained herein may be time sensitive. [employer] information has been compiled for use by healthcare practitioners and consumers in the [place] and therefore [employer] does not warrant that uses outside of the [place] are appropriate, unless specifically indicated otherwise. [employer]'s drug information does not endorse drugs, diagnose patients or recommend therapy. [employer] drug information is an informational resource designed [...] effective or appropriate for any given patient. [employer] does not assume any responsibility for any aspect of healthcare administered with the aid of information [employer] provides. The information contained herein is not intended to cover all possible uses, directions, precautions, warnings, drug interactions, allergic reactions, or adverse effects. If you have questions about the drugs you are taking, check with your doctor, nurse or pharmacist. Copyright 7524-3537 [employer] Version: 15.. Revision Date: 08/29/2017. gabapentin (GA [...] are a day sleeper or work a operations supervisor 2nd shift. Some people have thoughts about suicide while [...] may report side effects to FDA at 8-700-GVO-6310. What other drugs will affect gabapentin? Taking gabapentin with other drugs that make you sleepy can worsen this effect. Ask your doctor before taking a sleeping pill, narcotic medication, muscle relaxer, or medicine for anxiety, depression, or seizures. Other drugs may interact with gabapentin, including prescription and xeti-llx-iksvmml medicines, vitamins, and herbal products. Tell your [...] to ensure that the information provided by [employer]') is accurate, up-to-date, and complete, but no guarantee is made to that effect. Drug information contained herein may be time sensitive. [employer] information has been compiled for use by healthcare practitioners and consumers in the [place] and therefore [employer] does not warrant that uses outside of the [place] are appropriate, unless specifically indicated otherwise. [employer] drug information does not endorse drugs, diagnose patients or recommend therapy. [employer] drug information is an informational resource designed [...] effective or appropriate for any given patient. [employer] does not assume any responsibility for any aspect of healthcare administered with the aid of information [employer] provides. The information contained herein is not intended to cover all possible uses, directions, precautions, warnings, drug interactions, allergic reactions, or adverse effects. If you have questions about the drugs you are taking, check with your doctor, nurse or pharmacist. Copyright 8672-0349 [employer]. Version: 14.. Revision Date: 03/08/2017. oxycodone (ox [...] The extended-release form of oxycodone is for nilahi-ugg-ybavs treatment of pain and should not be [...] against the law. Stop taking all other siggzh-bsm-hyosb narcotic pain medicines when you start taking [...] are the possible side effects of oxycodone? Get emergency medical help if you have signs of an allergic reaction: hives; difficult breathing; swelling of your face, lips, tongue, or throat. Opioid medicine can slow or stop your breathing, and may occur. A person caring for you should seek emergency medical attention if you have slow breathing with long pauses, blue colored lips, or if you are hard to wake up. Call your doctor at once if you have: ? noisy breathing, sighing, shallow breathing; ?? a slow heart rate or weak pulse; ?? a light-headed feeling, like you might pass out; ?? confusion, unusual thoughts or behavior; ?? seizure (convulsions); or ?? low cortisol levels-- nausea, vomiting, loss of appetite, dizziness, worsening tiredness or weakness. Seek medical attention right away if you have symptoms of serotonin syndrome, such as: agitation, confusion, fever, sweating, fast heart rate, chest pain, feeling short of breath, muscle stiffness, trouble walking, or feeling faint. Serious side effects may be more likely in older adults and those who are malnourished or debilitated. Long-term use of opioid medication may affect fertility (ability to have children) in men or women. It is not known whether opioid effects on fertility are permanent. Common side effects may include: ? drowsiness, headache, dizziness, tiredness; or documented in this encounter Plan of Treatment Not on file documented as of this encounter Visit Diagnoses Not on filedocumented in this encounter
--- OUTSIDE RECORDS SUMMARY | 2025-02-07 06:57 | XMS_ITS | Encounter Summary ---
[facility] Address [address] [place] [address] Care Team Providers Care Network Security Architect Name Role Phone Refugio Fink MD Primary Care Provider [phone] Reason for Visit * Reason Comments Med Refill Encounter Details Date Type Department Care Team (Late st Contact Info) Description 01/23/2025 Refill [facility] [address] [place] [address] Sean Ross MD [address] [place] [address] Primary hypertension Social History Tobacco [...] AM EDT documented as of this encounter Plan of Treatment Upcoming Encounters Date Type Department Care Team (Late st Contact Info) Description 04/10/2026 3:30 PM EST Office Visit [facility] [address] [place] [address] [place] [address] Beto Mccurdy MD [address] [place] [address] documented as of this encounter Visit Diagnoses Diagnosis Primary hypertension Unspecified essential hypertension documented in this encounter Care Teams Network Security Architect Relationship Specialty Start Date End Date Refugio Fink MD [address] [place] [address] [place] [address] PCP - General 11/29/24 documented as of this encounter
--- OUTSIDE RECORDS SUMMARY | 2025-02-07 06:57 | XMS_ITS | Encounter Summary ---
Author Organization [employer] ([place], [place], [place], [place]) Address [address] [place] [address] Care Team Providers Care Director Center Name Role Phone Unavailable Primary Care Provider Unavailabl e Encounter Details Date Type Department Care Team (Late st Contact Info) Description 08/06/2019 Transcribed Document [facility] Radiology [address] [place] [address] Provider, Jaswinder Zarco MD Social [...] Conversion Note - Jaswinder Goldstein MD - 08/06/2019 2:45 PM EDT Total Joints Assessment Entered On: 08/06/2019 13:45 EDT Performed On: 08/06/2019 13:45 EDT by Bea Stroud RN Surgical Services JR VETO. Knee Survey 1. How severe is your knee stiffness after first wakening in the morning? : Severe 2. Twisting/pivoting on your knee : Moderate 3. Straightening knee fully : None 4. Going up or down stairs : Mild 5. Standing upright : None 6. Rising from sitting : Mild 7. Bending to floor/cotton picking machine operator an object : Mild KOOS Raw Score (ref) : 8 Bea Stroud RN [facility] - 08/06/2019 13:45 EDT PROMIS Global Health Scale In general, would you say your health is: : Fair In general, would you say your quality of life is: : Good In general, how would you rate your physical health? : Fair In general, how would you rate your mental health, including your mood and your ability to think? : Excellent In general, how would you rate your satisfaction with your social activities and relationships? : Very good In general, please rate how well you carry out your usual social activities and roles. (This includes activities at home, at work and in your community, and responsibilities as a parent, child, spouse, employee, friend, etc.) : Very good To what extent are you able to carry out your everyday physical activities such as walking, climbing stairs, carrying groceries, or moving a chair? : Completely How often have you been bothered by emotional problems such as feeling anxious, depressed or irritable? : Never How would you rate your fatigue on average? : Mild How would you rate your pain on average? : 1 Global Physical Health Score (ref) : 15 Global Mental Health Score (ref) : 17 Bea Stroud RN [facility] - 08/06/2019 13:45 EDT Electronically signed by Jaswinder Gilbert Conversion Modern Languages Professor Cerner at 10/20/2022 12:35 PM CDT documented in this encounter Plan of Treatment Not on file documented as of this encounter Visit Diagnoses Not on filedocumented in this encounter
--- OUTSIDE RECORDS SUMMARY | 2025-02-07 06:57 | XMS_ITS | Encounter Summary ---
Author Organization [employer] ([place], [place], [place], [place]) Address [address] [place] [address] Care Team Providers Care Towel Sorter Name Role Phone Unavailable Primary Care Provider Unavailabl e Encounter Details Date Type Department Care Team (Late st Contact Info) Description 07/05/2018 Transcribed Document [facility] Radiology [address] [place] [address] Provider, Jaswinder Zarco MD Social [...] - Mark Haroldo Goldstein MD - 07/05/2018 6:16 PM EST Patient: MARTA RAZO Age: 62 years Sex: Male : 1955 Associated Diagnoses: Unilateral primary osteoarthritis, right knee; Status post unicompartmental knee replacement, right; Hypertension; COPD (chronic obstructive pulmonary disease); obstructive sleep apnea; Morbid obesity with BMI of 40.0-44.9, adult Author: BRIDGETTE ARTHUR MD-INT 62 years old white male with a history of degenerative joint disease is admitted after he had the right compartmental knee arthroplasty by Dr. Zee Postoperative Information Patient had surgery today and is recovering well. patient is awake, alert, cooperative, responsive, and is under no acute distress. Currently Patient is on pain medication as recommended by Dr. Zee Patient's pain is well controlled. Patient is on DVT prophylaxis and also on scheduled bowel regimen. Urine out-put is adequate. PT/OT onboard. Review of Systems Constitutional: No fever, No chills. Eye: No visual disturbances. Ear/Nose/Mouth/Throat: No nasal congestion, No sore throat. Respiratory: No shortness of breath, No cough. Cardiovascular: No chest pain, No tachycardia. Gastrointestinal: No nausea, No vomiting, No abdominal pain. Genitourinary: No change in urine stream. Hematology/Lymphatics: No bleeding tendency. Endocrine: No polyuria, No cold intolerance, No heat intolerance. Immunologic: Negative. Musculoskeletal: Negative. Integumentary: wound stable covered w. clean dressing. Neurologic: No confusion, No numbness, No tingling, No headache. Psychiatric: No anxiety, No depression. All other systems are negative Health Status Allergies: Allergies (1) Active Reaction penicillin Unknown Current medications: Home Medications (7) Active amLODIPine 10 mg oral tablet 10 mg = 1 Tab, Oral, Daily Anoro Ellipta 62.5 mcg-25 mcg/inh inhalation powder 1 Puff, Inhalation, Daily Lasix 20 mg oral tablet 20 mg = 1 Tab, Oral, Daily NexIUM 40 mg oral delayed release capsule 40 mg = 1 Cap, PRN, Oral, BID potassium chloride 20 mEq oral tablet, extended release 20 mEq = 1 Tab, Oral, Daily ProAir HFA 90 mcg/inh inhalation aerosol 1 Puff, PRN, Inhalation, QID Spiriva 18 mcg inhalation capsule 18 mcg = 1 Cap, Inhalation, Daily , Medications (16) Active Scheduled: (4) amLODIPine 10 mg tab 10 mg 1 Tab, Oral, Daily cloNIDine 80 mcg + ketorolac 30 mg + ropivacaine 0.5% 30 mL + lidocaine 1% w/epi 1:100,000 28.2 mL 80 mcg 0.8 mL, IntraLesional, 1-Time pneumococcal 23-eleuterio vacc inj 0.5 mL 0.5 mL, IntraMuscular, [id number] tiotropium 18 mcg, Inhalation, Daily Continuous: (0) PRN: (12) al hydrox/mag hydrox/simeth 30 mL liq 30 mL, Oral, Q6H albuterol 1 Puff, Inhalation, QID albuterol-ipratropium inh 3 mL 3 mL, Nebulized Inhalation, Q4H bisacodyl 10 mg supp 10 mg 1 Supp, Rectal, Daily diphenhydrAMINE 25 mg tab 25 mg 1 Tab, Oral, On-CALL docusate calcium 240 mg cap 240 mg 1 Cap, Oral, Daily esomeprazole 40 mg, Oral, BID famotidine 20 mg tab 20 mg 1 Tab, Oral, PREOP magnesium hydroxide 8% liq 30 mL 15 mL, Oral, Q6H metaxalone 800 mg tab 800 mg 1 Tab, Oral, TID phenol 1.4% throat spray 5 [place], Oral, Q2H traZODone 50 mg tab 50 mg 1 Tab, Oral, At Bedtime Problem list: Active Problems (3) COPD (chronic obstructive pulmonary disease) History of obstructive sleep apnea Hypertension Histories Family History: Moraima history significant for CAD, HTN and cancer Procedure history: right foot. Social History Patient is single and he has 3 sons who quit smoking 3 months ago and he drinks alcohol very seldom. Physical Examination VS/Measurements Vital Signs/Vital Measures 07/05/2018 15:00 EST Heart Rate Monitored 90 bpm Respiratory Rate 18 Breaths/Min Systolic Blood Pressure 121 mmHg Diastolic Blood Pressure 76 mmHg Mean Arterial Pressure (MAP)-BMDI 94 Oxygen Saturation 97 % Oxygen Therapy Mode Nasal cannula Oxygen Flow Rate 3 Liter/Min 07/05/2018 14:50 EST Temperature Source Temporal artery scanning Temperature Mode Fahrenheit Temperature, Fahrenheit 97.9 Deg F Clinical Temperature, C 36.6 Deg C Heart Rate Monitored 87 bpm Respiratory Rate 20 Breaths/Min Systolic Blood Pressure 120 mmHg Diastolic Blood Pressure 76 mmHg Mean Arterial Pressure (MAP)-BMDI 98 Oxygen Saturation 95 % Oxygen Therapy Mode Nasal cannula Oxygen Therapy Mode Nasal cannula Oxygen Flow Rate 3 Liter/Min 07/05/2018 14:46 EST Heart Rate Monitored 83 bpm Respiratory Rate 14 Breaths/Min Oxygen Saturation 92 % LOW Oxygen Therapy Mode Nasal cannula Oxygen Flow Rate 5 Liter/Min 07/05/2018 14:40 EST Heart Rate Monitored 81 bpm Respiratory Rate 16 Breaths/Min Systolic Blood Pressure 118 mmHg Diastolic Blood Pressure 78 mmHg Mean Arterial Pressure (MAP)-BMDI 92 Oxygen Saturation 92 % LOW 07/05/2018 14:35 EST Heart Rate Monitored 81 bpm Respiratory Rate 15 Breaths/Min Systolic Blood Pressure 133 mmHg Diastolic Blood Pressure 77 mmHg Mean Arterial Pressure (MAP)-BMDI 97 Oxygen Saturation 86 % LOW 07/05/2018 14:33 EST Oxygen Flow Rate 6 Liter/Min 07/05/2018 14:30 EST Heart Rate Monitored 81 bpm Respiratory Rate 16 Breaths/Min Systolic Blood Pressure 119 mmHg Diastolic Blood Pressure 68 mmHg Mean Arterial Pressure (MAP)-BMDI 88 Oxygen Saturation 90 % LOW Oxygen Therapy Mode Nasal cannula Oxygen Therapy Mode Nasal cannula 07/05/2018 14:25 EST Heart Rate Monitored 81 bpm Respiratory Rate 16 Breaths/Min Systolic Blood Pressure 118 mmHg Diastolic Blood Pressure 69 mmHg Mean Arterial Pressure (MAP)-BMDI 91 Oxygen Saturation 91 % LOW 07/05/2018 14:20 EST Heart Rate Monitored 80 bpm Respiratory Rate 15 Breaths/Min Systolic Blood Pressure 131 mmHg Diastolic Blood Pressure 66 mmHg Mean Arterial Pressure (MAP)-BMDI 83 Oxygen Saturation 90 % LOW 07/05/2018 14:15 EST Heart Rate Monitored 83 bpm Respiratory Rate 15 Breaths/Min Systolic Blood Pressure 131 mmHg Diastolic Blood Pressure 66 mmHg Mean Arterial Pressure (MAP)-BMDI 83 Oxygen Saturation 86 % LOW 07/05/2018 14:14 EST Temperature Source Temporal artery scanning Temperature Mode Fahrenheit Temperature, Fahrenheit 98.6 Deg F Clinical Temperature, C 37 Deg C Heart Rate Monitored 84 bpm Respiratory Rate 16 Breaths/Min Systolic Blood Pressure 141 mmHg HI Diastolic Blood Pressure 74 mmHg Mean Arterial Pressure (MAP)-BMDI 96 Oxygen Saturation 89 % LOW Oxygen Therapy Mode CPAP 07/05/2018 10:00 EST Heart Rate Monitored 89 bpm Respiratory Rate 16 Breaths/Min Systolic Blood Pressure 147 mmHg HI Diastolic Blood Pressure 72 mmHg Oxygen Saturation 98 % Oxygen Therapy Mode Nasal cannula Oxygen Flow Rate 2 Liter/Min 07/05/2018 8:32 EST Temperature Source Oral Temperature Mode Fahrenheit Temperature, Fahrenheit 99.6 Deg F Heart Rate, Apical 86 bpm Respiratory Rate 16 Breaths/Min Systolic Blood Pressure 167 mmHg HI Diastolic Blood Pressure 85 mmHg Oxygen Saturation 96 % General: Alert and oriented, No acute distress. Eye: Pupils are equal, round and reactive to light, Normal conjunctiva, Vision unchanged. HENT: Normocephalic, Tympanic membranes are clear, Normal hearing, Oral mucosa is moist, No pharyngeal erythema, No sinus tenderness. Neck: Supple, Non-tender, No carotid bruit, No jugular venous distention, No lymphadenopathy, No thyromegaly. Respiratory: Lungs are clear to auscultation, Respirations are non-labored, Breath sounds are equal, Symmetrical chest wall expansion, No chest wall tenderness. Cardiovascular: Normal rate, Regular rhythm, No murmur, No gallop, Good pulses equal in all extremities, Normal peripheral perfusion, No edema. Gastrointestinal: Soft, Non-tender, Non-distended, Normal bowel sounds, No organomegaly. Genitourinary: No costovertebral angle tenderness, No inguinal tenderness, No urethral discharge, No lesions. Lymphatics: No lymphadenopathy neck, axilla, groin. Musculoskeletal: Normal range of motion, Normal strength, No tenderness, No swelling, No deformity, Normal gait. Integumentary: Warm, [place], Intact, No pallor, No rash, WOUND STABLE. Neurologic: Alert, Oriented, Normal sensory, Normal motor function, No focal deficits, Cranial Nerves II-XII are grossly intact, Normal deep tendon reflexes. Psychiatric: Cooperative, Appropriate mood & affect, Normal judgment, Non-suicidal. Review / Management Results review Impression and Plan Diagnosis Unilateral primary osteoarthritis, right knee - Admitting, Medical. Status post unicompartmental knee replacement, right - Admitting, Medical. Hypertension - Admitting, Medical. COPD (chronic obstructive pulmonary disease) - Admitting, Medical. Obstructive sleep apnea - Admitting, Medical. Morbid obesity with BMI of 40.0-44.9, adult - Admitting, Medical. Course: Plan/Respirex @ BS and encourage patient to use. Sleep apnea precautions if needed. C-pap at night if needed. Hold all BP meds if BSP < 130 MMHg. If SBP < 90 mmHg, you may give 500 ml NS IVF over one hour. ACT: CONSULT PT/OT as per Dr. rogelio lu. For urinary retention use bladder scanner, you may anchor FC. If no or low UOP you may give 250 mL NS IV over one hour. AM Labs BMP & Hgb/HCT. If pt. spikes fever > 101* F, encourage pt to use Respirex first, then you may give Tylenol 650 mg PO/WY x 1. If no response in 2 hours, you may get blood cx. x2, chest x-ray, sputum CX, S, gram stain x3, UA, C&S. Patient may have chloroseptic spray or throat lozenges for soar throat. DVT prophylaxis. If at any time the HGB is less than 8 type and cross then transfuse 2 units of PRBCs. Premedicate with Tylenol 650 mg PO and Benadryl 25mg PO. Electrolytes Replacement Protocol. -Pain control -DVT prophylaxis -Close monitoring fluid and electrolytes -When necessary nebs -Fall risk precautions. documented in this encounter Plan of Treatment Not on file documented as of this encounter Visit Diagnoses Not on filedocumented in this encounter
--- OUTSIDE RECORDS SUMMARY | 2025-02-07 06:57 | XMS_ITS | Encounter Summary ---
Author Organization [employer] ([place], [place], [place], [place]) Address [address] [place] [address] Care Team Providers Care Robotics Technician Name Role Phone Unavailable Primary Care Provider Unavailabl e Encounter Details Date Type Department Care Team (Late st Contact Info) Description 07/05/2018 Transcribed Document [facility] Radiology [address] [place] [address] Provider, Jaswinder Zarco MD Social [...] Miscellaneous Notes * Cerner Conversion Note - [facility] Haroldo ProviderMD - 07/05/2018 4:46 PM EST Admission History, Adult Entered On: 07/05/2018 15:57 EST Performed On: 07/05/2018 15:46 EST by ROLAN SMITH RN Advance Directive Patient has Advance Directive *Q : No, patient refuses Advance Directive information ROLAN SMITH RN - 07/05/2018 15:46 EST Anesthesia/Transfusion History Family History of Anesthesia Reaction : No prior transfusion(s) Transfusion History : Prior anesthesia without reaction Family History of Anesthesia Reaction : None ROLAN SMITH RN - 07/05/2018 15:46 EST Education Topics, Admission Orientation DCP GENERIC CODE Advance Directives : Verbalizes understanding Allergy Band Applied : Verbalizes understanding Assessment/Vital Signs : Verbalizes understanding Bed Control : Verbalizes understanding Call Light : Verbalizes understanding Confidentiality : Verbalizes understanding Diet/Room Service : Verbalizes understanding Fall Prevention : Verbalizes understanding Hand Hygiene : Verbalizes understanding Healthcare Provider Visit : Verbalizes understanding ID Band Applied : Verbalizes understanding Isolation Precautions : Verbalizes understanding Orientation to Room/Bathroom : Verbalizes understanding Patient Bill of Rights : Verbalizes understanding Patient Rights/Responsibilities : Verbalizes understanding Patient Safety : Verbalizes understanding Personal Privacy Code : Verbalizes understanding Rapid Response Initiated by Patient/Family : Verbalizes understanding Rounding : Verbalizes understanding Siderails use/risks : Verbalizes understanding Skin Precautions : Verbalizes understanding Smoking Policy : Verbalizes understanding Telemetry Monitoring : Verbalizes understanding Television/Phone : Verbalizes understanding Visiting Policy : Verbalizes understanding ROLAN SMITH RN - 07/05/2018 15:46 EST Functional Assessment Living Situation : Home Patient Lives With : Child/Children Persons Assisting Patient at Home : Child/Children Mobility Assistance Prior to Admission : Independent Current Home Treatments : CPAP ROLAN SMITH RN - 07/05/2018 15:46 EST General Info Want Family/Rep/Phys Notified of Admit : No Emergency Contact #1 : Mg Emergency Contact #1 Emergency Contact #1 Relationship : son Emergency Contact #2 : . Emergency Contact #2 Phone Number : . Emergency Contact #2 Relationship : . Information Obtained From : Patient Primary Language : Amharic Preferred Communication Mode : Verbal Communication Barrier : None ROLAN SMITH RN - 07/05/2018 15:46 EST Fall Risk Scales ABCs Fall Injury Risk Identification : Bones, Surgery ABC Fall Injury Risk : Moderate to high injury risk Injury Moderate to High Risk Interventions : Bed alarm on, Chair alarm on, High Risk for Fall Injury sign in place per policy, Specialty low bed, Supervise toileting as indicated, Transport methods appropriate to patient, Wrist band (fall risk) on per policy SANTANA Hx Falls Immediate/Within 3 Months : No Santana Secondary Diagnosis : Yes SANTANA Use of Ambulatory Aid : Crutches/Cane/Walker SANTANA IV Therapy or IV Access : Yes Santana Gait/Transferring : Weak Santana Mental Status : Oriented to own ability Santana Fall Risk Score : 60 SANTANA Fall Scale Risk Level : 46 or > High Risk [place] Fall Interventions : Adequate lighting, Assistive devices within reach, Bed in low position, Call device within reach, Fall prevention handout/education per facility policy, Frequent orientation to call device, Frequent orientation to surroundings, Hourly comfort/safety rounds, Non-slip footwear, Personal items within reach, Reinforced to call for assistance before getting out of bed, Room free of clutter/spills, Upper side-rails up, Wheels locked, Wires/Cords secured Fall Moderate to High Risk Interventions : Bed alarm on, Chair alarm on, Fall contract/letter per facility policy, Patient room close to nurses station, Supervise toileting as indicated, Transport methods appropriate to patient, Toileting schedule, Wrist band (fall risk) on ROLAN SMITH RN - 07/05/2018 15:46 EST Fall Risk Education Grid Alarms : Verbalizes understanding Assistive Equipment Use : Verbalizes understanding Bed Height/Stabilization : Verbalizes understanding Call light use : Verbalizes understanding Door Open : Verbalizes understanding Environmental Management : Verbalizes understanding Fall Community Resources : Verbalizes understanding Fall Contract/Letter : Verbalizes understanding Fall Prevention in the Home : Verbalizes understanding Fall Prevention Protocol : Verbalizes understanding Home Risk Assessment : Verbalizes understanding Need Constant Observation : Verbalizes understanding Night Light Use : Verbalizes understanding Nonskid Footwear Use : Verbalizes understanding Notification of Staff When Leaving : Verbalizes understanding Orthostatic Hypotension Precautions : Verbalizes understanding Personal Article Availability : Verbalizes understanding Prevention Responsibility Family : Verbalizes understanding Prevention Responsibility Patient : Verbalizes understanding Risk Alert Methods : Verbalizes understanding Risk Factors : Verbalizes understanding Safety Aids : Verbalizes understanding Siderails use/risks : Verbalizes understanding Special Assistive Devices : Verbalizes understanding Staff Responsiveness : Verbalizes understanding Symptom Identification & Action Plan *Q : Verbalizes understanding Symptom Reporting : Verbalizes understanding Toileting Schedule : Verbalizes understanding Transfer/Mobility Techniques : Verbalizes understanding Urinal/Bedpan Availability : Verbalizes understanding Wait for Assistance : Verbalizes understanding Wheelchair Safety : Verbalizes understanding ROLAN SMITH RN - 07/05/2018 15:46 EST Barriers to Learning : None evident Fall Risk Scale Calc Temp : 1 ROLAN SMITH RN - 07/05/2018 15:46 EST Health Histories Smoking Status : Former smoker, quit more than 30 days ago Smokeless Tobacco Status : Never ROLAN SMITH RN - 07/05/2018 15:46 EST Social History (As Of: 07/05/2018 15:57:24 EST) Tobacco: Former smoker, quit more than [...] 06/30/2018 13:02:36 EST by Akosua Quiroz RN) Height and Weight, Clinical Dosing Height Source : Stated Height Entry Format : [place] Height, Feet : 5 ft(Converted to: 152 cm, 60 Inch) Height, Inches : 7 Inch(Converted to: 0 ft 7 Inch, 17.78 cm) Clinical Height : 170.18 cm Weight Source : Standing scale Weight Entry Format : [place] Clinical Dosing Weight : 130 kg Weight, Pounds : 286 lb Body Surface Area (BSA) : 2.36 m2 Body Mass Index : 44.9 kg/m2 (>HHI) [place] Body Weight : 65 kg ROLAN SMITH RN - 07/05/2018 15:46 EST Infectious Disease History Infectious Disease History : Chicken pox/Shingles, Influenza, Measles, Mumps Fever/Chills Last 48 Hours : No Travel To Regions with Travel Advisories : No Travel Outside [place] Within Last 30 Days : No Contact With Traveler to Advisory Region : No Tuberculosis Symptoms : None ROLAN SMITH RN - 07/05/2018 15:46 EST Tetanus Immunization Status Previous Tetanus Immunizations : No qualifying data available. Tetanus Immunization : Less than 5 years ROLAN SMITH RN - 07/05/2018 15:46 EST Influenza Vaccine Asmt, Adult Previous Vaccines from Immunization Schedule : No qualifying data available. Influenza Immunization, Current Season : Yes Influenza Immunization Date : 03/30/2019 EDT ROLAN SMITH RN - 07/05/2018 15:46 EST Pneumococcal Vaccine Previous Vaccines from Immunization Schedule : No qualifying data available. Pneumonia Immunization Received : No Pneumococcal Risk Assessment < Age 65 : Chronic pulmonary disease (e.g., COPD, emphysema, asthma) Pneumococcal Vaccine Contraindications : No contraindications to pneumococcal vaccine Transplant Workup/Recent Transplant : No Order for Pneumococcal Vaccine : Order for pneumococcal vaccine sent to pharmacy ROLAN SMITH RN - 07/05/2018 15:46 EST Order Details Order Detail : N/A IV Order Detail : 1 Nurse Collect Order Detail : 0 Lift/Transfer : Minimal Central Line Order Detail : No Room Service : Appropriate Arterial Line : No ROLAN SMITH RN - 07/05/2018 15:46 EST Nutrition History Feeding Ability : Independent Adaptive Feeding Equipment : None Adaptive Feeding Equipment : Regular Eating Poorly Due to Decreased Appetite : No Unplanned Weight Loss in Past 3-6 Months : No Malnutrition Screening Tool Total(mal) : 0 Malnutrition Screening Tool Risk Level : Patient not at risk ROLAN SMITH RN - 07/05/2018 15:46 EST Psychosocial History Does Someone Depend on You for Care? : No Do You Have a History of the Following? : Patient denies history Currently in Unsafe Situation : No Restraining Order Against Another Person : No Do You Have a Support System? : No Hospital/DC Financial Concerns : No Stressors Affecting Hospitalization/DC : No Tried to Harm Yourself in the Past? : No Thoughts of Harming/Killing Yourself : No ROLAN SMITH RN - 07/05/2018 15:46 EST Sleep Apnea Risk Assmt Hx of Obstructive Sleep Apnea Diagnosis : Yes BiPAP/CPAP Ordered for Home Use : Yes BiPAP/CPAP Used at Home : Yes BiPAP/CPAP Home Settings : . Home BiPAP/CPAP Device With Patient : Yes ROLAN SMITH RN - 07/05/2018 15:46 EST Spiritual/Cultural Needs Significant Loss/Crisis in Past 3 Years : No Significant Distress/Coping/Need Support : No Any Spiritual/Cultural Needs or Requests : No ROLAN SMITH RN - 07/05/2018 15:46 EST Valuables and Belongings Valuables and Belongings : Clothing Clothing : Common streetwear Clothing Disposition : With family ROLAN SMITH RN - 07/05/2018 15:46 EST documented in this encounter Plan of Treatment Not on file documented as of this encounter Visit Diagnoses Not on filedocumented in this encounter
--- OUTSIDE RECORDS SUMMARY | 2025-02-07 06:57 | XMS_ITS | Encounter Summary ---
Author Organization [employer] ([place], [place], [place], [place]) Address [address] [place] [address] Care Team Providers Care Cobol Application Developer Name Role Phone Unavailable Primary Care Provider Unavailabl e Encounter Details Date Type Department Care Team (Late st Contact Info) Description 07/05/2018 Transcribed Document [facility] Radiology [address] [place] [address] Provider, Jaswinder Zarco MD Social [...] Miscellaneous Notes * Cerner Conversion Note - [facility] Haroldo ProviderMD - 07/05/2018 7:59 PM EST ERICK Entered On: 07/05/2018 18:59 EST Performed On: 07/05/2018 18:59 EST by BRIDGETTE ARTHUR MD-INT ERICK Indication of use for OOCS : Acute Illness OOCS Misuse Suspected : Other Was ERICK queried : Other Patient Advised to seek OOCS Treatment : Other Treatment to Include Limited Supply of OOCS : Other ERICK Result : Other ERICK Other Notes : As per Dr. Zee office records Patient cancelled on OOCS : Other ERICK : . BRIDGETTE ARTHUR MD-INT - 07/05/2018 18:59 EST documented in this encounter Plan of Treatment Not on file documented as of this encounter Visit Diagnoses Not on filedocumented in this encounter
--- NOTE | 2025-02-07 07:00 | CT_ITS ---
FINAL REPORT TECHNIQUE: Thin section axial images were obtained through the lungs using a low-dose technique per lung cancer screening protocol. Reconstruction images were obtained using the axial data. Exam was performed using dose reduction technique. CLINICAL HISTORY: lung cancer screening former smoker quit 7 years ago 3ppd x42 years COMPARISON: None FINDINGS: CTDLvol: 2.90 DLP: 106.03 Former smoker for 7 years 126 pack year history Lungs: No acute pulmonary abnormality. There is evidence of prior granulomatous disease. There is a 4 mm posterior left upper lobe nodule best seen on image #21 of series 4. A right middle lobe nodule is present, also measuring 4 mm and best seen on image #48 of series 4. A right upper lobe nodule measuring 4 mm is best seen on image #37 of series 4. Lymph nodes: No thoracic lymphadenopathy. Mediastinum: Heart size is normal. Prominent coronary artery calcifications are present. Pleura/pericardium: No pleural or pericardial effusion. Other: No acute abnormality in the upper abdomen. IMPRESSION: Multiple small 4 mm nodules are present bilaterally. Lung RADS: 2S, the S designation for prominent coronary artery calcifications. Recommendation: 12-month follow-up LDCT Reviewed, Interpreted and Dictated by Angela Snow MD Transcribed by Yamile Suazo Authenticated and [facility]
--- OUTSIDE RECORDS SUMMARY | 2025-02-07 07:55 | XMS_ITS | CCD ---
Author Name Lizzy Skinner NP Address [address] [place] [address] Phone Organization [facility] Phone Care Team Providers Care Log Grader Name Role Phone Lizzy Skinner NP Primary Care Provider Unavaila ble Unavailable Chronic Care Management Unavaila ble Summary Purpose DataExchange Insurance Providers Payer name Policy type / Coverage type Covered green party ID Effective Begin Date Effective End Date [facility] [id number] Unknown Unknown Family history Father Diagnosis Age [...] Former User 10/09/[address]: 490099955 Never drinks alco hol 10/09/2024 Illegal/Recreational drug [...] 10/09/2024 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 05/27/2022 [...] 62.5 mcg-25 mcg/actuation powder for inhalation RxNorm: 4681058 Take 1 Puff(s) Inhalation every day 5 01/02/20 26 Active lisinopril (PRINIVIL,ZESTRIL ) 20 MG tablet RxNorm: 377924 Take 1 Tablet(s) Oral every day 5 No Stop Date Active atorvastatin 20 mg tablet RxNorm: 458590 Take 1 Tablet(s) Oral every night at bedtime 5 01/02/20 26 Active furosemide (LASIX) 40 MG tablet RxNorm: 179411 Take 1 Tablet(s) Oral every day 5 No Stop Date Active sildenafil (VIAGRA) 50 MG tablet RxNorm: 534571 Take 1 Tablet(s) Oral every day as needed 5 No Stop Date Active sildenafil (VIAGRA) 50 MG tablet RxNorm: 064886 Take 1 Tablet(s) Oral every day as needed 5 09/13/19 25 Inactive furosemide (LASIX) 40 MG tablet RxNorm: 884015 Take 1 Tablet(s) Oral every day 5 09/26/19 25 Inactive atorvastatin (LIPITOR) 40 MG tablet RxNorm: 837638 TAKE 1 TABLET BY MOUTH ONCE DAILY AT NIGHT 5 No Stop Date Active lisinopril (PRINIVIL,ZESTRIL ) 20 MG tablet RxNorm: 719459 Take 1 Tablet(s) Oral every day 4 10/10/19 25 Inactive betamethasone valerate (VALISONE) 0.1 % ointment RxNorm: 963981 Apply 1 Application topically to the appropriate area as directed 2 (Two) Times a Day. 4 No Stop Date Active potassium chloride 10 MEQ CR tablet RxNorm: 087155 Take 1 Tablet(s) Oral every day . 4 No Stop Date Active amLODIPine (NORVASC) 10 MG tablet RxNorm: 708688 Take 1 Tablet(s) Oral every day . 4 No Stop Date Active nitroglycerin (NITROSTAT) 0.4 MG SL tablet RxNorm: 913954 Place 1 tablet under the tongue Every 5 (Five) Minutes As Needed for Chest Pain. Take no more than 3 doses in 15 minutes. 4 No Stop Date Active albuterol sulfate HFA 108 (90 Base) MCG/ACT inhaler RxNorm: 7634172 Inhale 2 puffs As Needed for Wheezing. 3 No Stop Date Active Medication Administered No Medication Administered data Results Observation Observation Code Item Item Code Result Date Service Location Hemoccult Screening Immunoassay G0328 Fecal Occult Blood Test (FOBT) Screening 79834-1 SEE COMMENT 11/14/19 [facility] [address] [place] [address] Procedures Procedure Codes Date Functional Status Assessed CPT-4: 1170F 10/09 MED LIST DOCD IN [facility] CPT-4: 1159F 10/09/2024 RVW MEDS BY RX/DR IN [facility] CPT-4: 1160F 2024 Screening for clinical [...] 1: 138/80 Code: 8480-6 BMI: 39.2 Code: 93214-7 Heart Rate 1: 103 bpm Height: 5'7 Code: 8302-2 Respiratory Rate: 16 bpm SpO2: 96% Temperature: 36.9 (C) / 98.4 (F) Weight: 250 lbs Code: 44043-6 Reason For Visit Reason For Visit Effective Dates Notes new patient welcome visit 10/09/2024 Encounters Encounter Performer Location Location Address Codes Date ([address]) Home or Residence Visit CRANE HOIST OR LIFT OPERATOR - Moderate Level, 60 mins Diagnosis: Encounter for general adult medical examination without abnormal findings[ICD10: Z00.00] Diagnosis: Chronic heart failure with preserved ejection fraction (HFpEF)[ICD10: I50.32] Diagnosis: Primary hypertension[ICD10 : I10] Diagnosis: Other emphysema[ICD10: J43.8] Diagnosis: Chronic pain of both knees[ICD10: M25.561] Diagnosis: Pain in right knee[ICD10: M25.561] Diagnosis: Pain in left knee[ICD10: M25.562] Diagnosis: Other chronic pain[ICD10: G89.29] Lizzy Skinner [place] [facility] [place] [address] CPT-4: 94752 10/09/2024 Plan of Care Planned Activity Notes Codes Status Date Appointment: Dian Kaur WPtel: [address] [place] [address] [id number] [facility] 11/26/2024 Visit Plan: This is a pleasant 6 [...] and agreeable to plan of care. 10/09/2024 Appointment: Lizzy Skinner WPtel: [phone] [address] 10/09/2024 Patient Education: Patient Medication Summary Completed [...]
--- OUTSIDE RECORDS SUMMARY | 2025-02-07 07:56 | XMS_ITS | CCD ---
Author Name Lizzy Skinner NP Address [address] [place] [address] Phone Organization [facility] Phone Care Team Providers Care Cemetery Keeper Name Role Phone Lizzy Skinner NP Primary Care Provider Unavaila ble Unavailable Chronic Care Management Unavaila ble Summary Purpose DataExchange Insurance Providers Payer name Policy type / Coverage type Covered democrat ID Effective Begin Date Effective End Date [facility] [id number] Unknown Unknown Family history Father Diagnosis Age [...] Former User 10/09/[address]: [id number] Never drinks alco hol 10/09/2024 Illegal/Recreational drug [...] 10/09/2024 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 05/27/2022 [...] 62.5 mcg-25 mcg/actuation powder for inhalation RxNorm: 4225492 Take 1 Puff(s) Inhalation every day 5 01/02/20 26 Active lisinopril (PRINIVIL,ZESTRIL ) 20 MG tablet RxNorm: 383256 Take 1 Tablet(s) Oral every day 5 No Stop Date Active atorvastatin 20 mg tablet RxNorm: 409680 Take 1 Tablet(s) Oral every night at bedtime 5 01/02/20 26 Active furosemide (LASIX) 40 MG tablet RxNorm: 683664 Take 1 Tablet(s) Oral every day 5 No Stop Date Active sildenafil (VIAGRA) 50 MG tablet RxNorm: 532728 Take 1 Tablet(s) Oral every day as needed 5 No Stop Date Active sildenafil (VIAGRA) 50 MG tablet RxNorm: 223609 Take 1 Tablet(s) Oral every day as needed 5 09/13/19 25 Inactive furosemide (LASIX) 40 MG tablet RxNorm: 814028 Take 1 Tablet(s) Oral every day 5 09/26/19 25 Inactive atorvastatin (LIPITOR) 40 MG tablet RxNorm: 032049 TAKE 1 TABLET BY MOUTH ONCE DAILY AT NIGHT 5 No Stop Date Active lisinopril (PRINIVIL,ZESTRIL ) 20 MG tablet RxNorm: 063900 Take 1 Tablet(s) Oral every day 4 10/10/19 25 Inactive betamethasone valerate (VALISONE) 0.1 % ointment RxNorm: 140924 Apply 1 Application topically to the appropriate area as directed 2 (Two) Times a Day. 4 No Stop Date Active potassium chloride 10 MEQ CR tablet RxNorm: 743204 Take 1 Tablet(s) Oral every day . 4 No Stop Date Active amLODIPine (NORVASC) 10 MG tablet RxNorm: 781816 Take 1 Tablet(s) Oral every day . 4 No Stop Date Active nitroglycerin (NITROSTAT) 0.4 MG SL tablet RxNorm: 245191 Place 1 tablet under the tongue Every 5 (Five) Minutes As Needed for Chest Pain. Take no more than 3 doses in 15 minutes. 4 No Stop Date Active albuterol sulfate HFA 108 (90 Base) MCG/ACT inhaler RxNorm: 5687222 Inhale 2 puffs As Needed for Wheezing. 3 No Stop Date Active Medication Administered No Medication Administered data Results Observation Observation Code Item Item Code Result Date Service Location Hemoccult Screening Immunoassay G0328 Fecal Occult Blood Test (FOBT) Screening 76565-7 SEE COMMENT 11/14/19 [facility] [address] [place] [address] Procedures Procedure Codes Date Functional Status Assessed CPT-4: 1170F 10/09 MED LIST DOCD IN [facility] CPT-4: 1159F 10/09/2024 RVW MEDS BY RX/DR IN [facility] CPT-4: 1160F 2024 Screening for clinical [...] 1: 138/80 Code: 8480-6 BMI: 39.2 Code: 63636-3 Heart Rate 1: 103 bpm Height: 5'7 Code: 8302-2 Respiratory Rate: 16 bpm SpO2: 96% Temperature: 36.9 (C) / 98.4 (F) Weight: 250 lbs Code: 25462-8 Reason For Visit Reason For Visit Effective Dates Notes new patient welcome visit 10/09/2024 Encounters Encounter Performer Location Location Address Codes Date (19898) Home or Residence Visit ROLL FORM OPERATOR - Moderate Level, 60 mins Diagnosis: Encounter for general adult medical examination without abnormal findings[ICD10: Z00.00] Diagnosis: Chronic heart failure with preserved ejection fraction (HFpEF)[ICD10: I50.32] Diagnosis: Primary hypertension[ICD10 : I10] Diagnosis: Other emphysema[ICD10: J43.8] Diagnosis: Chronic pain of both knees[ICD10: M25.561] Diagnosis: Pain in right knee[ICD10: M25.561] Diagnosis: Pain in left knee[ICD10: M25.562] Diagnosis: Other chronic pain[ICD10: G89.29] Lizzy Skinner [place] [facility] [place] [address] CPT-4: 15668 10/09/2024 Plan of Care Planned Activity Notes Codes Status Date Appointment: Dian Kaur WPtel: [address] [place] [address] [id number] [facility] 11/26/2024 Visit Plan: This is a pleasant [...] Appointment: Lizzy Skinner WPtel: [address] [phone] 10/09/2024 Patient Education: Patient Medication [...]
== END 2025-02-07 23:59 | disposition home or self-care (01) ==
LOC: RAD 06:54
PROVIDERS: PCP Family Medicine; Visit Provider Family Medicine
DX: I25.10 Atherosclerotic heart disease of native coronary artery without angina pectoris (principal); R91.8 Other nonspecific abnormal finding of lung field; Z12.2 Encounter for screening for malignant neoplasm of respiratory organs; Z87.891 Personal history of nicotine dependence
CPT/HCPCS: 71271

== ENCOUNTER 2025-04-10 11:13 | Day surgery (SDC) | payer MEDICARE, SELFPAY ==
--- NOTE | 2025-04-07 11:46 | EXP.HP ---
History of Present Illness *Admission Date: 04/10/25 *History of present illness: Mr. Mcdowell is a 69-year-old gentleman who is here for screening/surveillance colonoscopy. The patient did have initial screening colonoscopy in November 2018 secondary to a positive Cologuard test. At that time he had 8 colon polyps (small sessile serrated adenomas x 3 and hyperplastic polyps x 5) removed. The examination is deemed medically necessary for screening/surveillance colonoscopy. The patient has been seen, interviewed and examined prior to the procedure by both myself and the anesthesia provider. [facility] Disclaimer: The information contained in this section may have been updated after the patient was seen, as this information can be updated by other users. Medical History History of cigarette smoking Acute lateral meniscal injury of left knee COPD (chronic obstructive pulmonary disease) Hyperlipidemia Hypertension Surgical History H/O left knee surgery Total knee replacement status Family History Other No significant family history Social History (Updated 04/10/25 @ 12:44 by Ashley Mendoza RN) Smoking Status: Former smoker tobacco type: cigarettes packs per day: 3 pack-years: 126 years smoked: 42 alcohol intake: never substance use type: denies use current occupational status: other Travel in the last 8 weeks?: None caffeine: Yes Have you lived/traveled outside US in past 30 days?: No Contact w/someone who lives/traveled outside US past 30 days?: No Exposure to someone with infectious disease in past 14 days?: No Do you have a fever (greater than 100.4 F or 38 C)?: No Have you tested positive for COVID-19?: No Exposed to someone with COVID-19 in past 14 days?: No Do you have a sore throat?: No Do you have a cough?: No Do you have any weakness?: No Are you experiencing any nausea/vomitting?: No Do you have any diarrhea?: No Are you experiencing any unusual bleeding?: No Do you have any muscle aches/pain?: No Do you have any abdominal pain?: No Are you experiencing loss of taste or smell?: No Other Medical History Have you received the Flu Vaccine for this season: No Have you received the Pneumonia Vaccine: Yes Review of Systems Review of Systems Review of systems (narrative): Negative *Cardiovascular Comments: Negative *Gastrointestinal Comments: Negative *Genitourinary Comments: Negative *Musculoskeletal Comments: Negative *Neurologic Comments: Negative Meds Home Medications and Allergies Home Medications ?Medication ?Instructions ?Recorded ?Confirmed ?Type albuterol sulfate 90 mcg/actuation 1 - 2 puffs inhalation Q4-6H PRN 12/05/18 04/10/25 History aerosol inhaler Shortness Of Breath Or Wheezing umeclidinium 62.5 mcg-vilanterol 1 inh inhalation DAILY Asthma 12/05/18 04/10/25 History 25 mcg/actuation powdr for inhalation (Anoro Ellipta) nitroglycerin 0.4 mg sublingual 0.4 mg sublingual NEEDED PRN 10/04/23 04/10/25 History tablet Chest Pain syringe with needle, safety 3 mL #10 ea 06/27/24 04/10/25 Rx 23 gauge x 1 (Monoject Safety Syringes) atorvastatin 20 mg tablet 20 mg PO HS 10/31/24 04/10/25 History sildenafil 50 mg tablet 50 mg PO Q24H PRN erectile 11/05/24 04/10/25 Rx dysfunction #20 tabs potassium chloride 10 mEq 10 meq PO DAILY Supplement 90 days 01/17/25 04/10/25 Rx capsule,extended release #90 caps amlodipine 10 mg tablet 10 mg PO DAILY blood pressure 90 01/24/25 04/10/25 Rx days #90 tabs cephalexin 500 mg capsule 500 mg PO BID #14 caps 02/04/25 04/10/25 Rx furosemide 40 mg tablet 40 mg PO QAM #90 tabs 03/01/25 04/10/25 Rx sodium,potassium,mag sulfates 17.5 See Rx Instructions PO .COMPLEX 03/27/25 04/10/25 Rx gram-3.13 gram-1.6 gram oral soln #354 mL (Suprep Bowel Prep Kit) testosterone cypionate 200 mg/mL 150 mg (0.75 mL) SQ Q2W #10 mL 03/27/25 04/10/25 Rx intramuscular oil lisinopril 20 mg tablet See Rx Instructions .Route 04/01/25 04/10/25 Rx .COMPLEX #90 tabs aspirin 81 mg tablet 81 mg PO DAILY 04/09/25 04/10/25 History New Prescriptions to Start Prescriptions: Allergies Allergy/AdvReac Type Severity Reaction Status Date / Time Penicillins Allergy Unknown Verified 04/09/25 13:46 allergy reaction Exam *Routine HEENT Exam Head: Present normocephalic Eye: Present EOMI and PERRL ENT: Present mucous membranes moist *Routine Neck Exam Neck: Present supple *Routine Respiratory Exam Respiratory: Present CTA bilaterally *Routine Cardiovascular Exam Cardiovascular: Present RRR *Routine Abdominal Exam Abdominal: Present soft and normoactive bowel sounds; Absent tenderness *Routine Rectal Exam Rectal:: deferred *Routine Genitalia Exam Genitalia:: deferred *Routine Extremities Exam Extremities: Absent cyanosis, clubbing or edema *Routine Skin Exam Skin: Present warm; Absent rash *Routine Neurological Exam Neurological: Present alert and oriented X3 Assessment and Plan *Assessment and plan (1) Personal history of adenomatous and serrated colon polyps: Status: Acute Category: Medical Code(s): Z86.0101 - Personal history of adenomatous and serrated colon polyps (2) Screening for colon cancer: Status: Acute Category: Medical Code(s): Z12.11 - Encounter for screening for malignant neoplasm of colon Plan A/P: 1. Personal history of adenomatous colon polyps is the preprocedural diagnosis. The patient will be anesthetized/sedated using MAC sedation. The patient has been seen and examined. Cardiac and lung assessment prior to the examination is stable. Proceed with planned screening colonoscopy.
[2025-04-09 13:50] VITALS: BMI 39.9
--- NOTE | 2025-04-10 07:07 | P.PCN_ITS ---
[facility] Procedure Note Date: 04/10/25 Time: 13:35 Procedure Note:: Colonoscopy Procedure Report: Colonoscopy with cold snare polypectomy Endoscopist: Izaiah Bay II, MD Referring physician: Refugio Fink MD Date of Procedure: April 10, 2025 Equipment: Olympus [id number] adult colonoscope Sedation: MAC sedation Indication: Mr. Mcdowell is a 69-year-old gentleman who is here for screening/surveillance colonoscopy due to a personal history of adenomatous colon polyps. The patient did have initial screening colonoscopy in November 2018 secondary to a positive Cologuard test. At that time he had 8 colon polyps (small sessile serrated adenomas x 3 and hyperplastic polyps x 5) removed. The patient reports no abdominal pain, weight loss, change in his bowel habits or rectal bleeding. The patient reports no family history of colon cancer. The examination is deemed medically necessary for screening/surveillance colonoscopy. Procedure: Prior to the procedure, a history and physical exam was performed, and patient's medications and allergies were reviewed. The risks, benefits and alternatives of the sedation and procedure were discussed with the patient. All questions were answered and informed consent was obtained. The patient was brought to the procedure room. Patient identification and proposed procedure were verified by the physician and the nurse. The patient was placed in a left lateral decubitus position and the scope was passed under direct vision. Throughout the procedure, the patient's blood pressure, pulse, and oxygen saturations were monitored continuously. The colonoscopy was accomplished without difficulty. The patient tolerated the procedure well. Findings: On digital rectal examination there was normal rectal tone. There were no external hemorrhoids. The prostate was 2+, smooth, soft, symmetric without nodules. The colonoscope was introduced through the anal canal to the rectum and advanced to the cecum. The ileocecal valve and appendiceal orifice were identified. The scope was advanced a short distance into the ileum which ap peared grossly normal. The scope was then withdrawn into the colon. There were 2 diminutive polyps (descending x 1 (4 mm) and sigmoid x 1 (3 mm)). These were removed via cold snare polypectomy. The remaining cecum, ascending, transverse, descending, sigmoid and rectum were grossly normal. There were no other mucosal abnormalities identified. Upon retroflexion within the rectum there were grade 1-2 internal hemorrhoids. The preparation was excellent throughout with [place] Preparation Score of 9. The cecal time was 12 minutes. Impression: 1. Diminutive colonic polyps x 2 Plan: I will follow-up the polyp histology and recommend repeat screening/surveillance colonoscopy in 7 to 10 years based upon the pathology.
[2025-04-10 12:43] VITALS: BP 154/87; PULSE 111; RESP 16; TEMP 36.4; O2SAT 96; BMI 39.9
[2025-04-10] MEDS: LACTATED RINGERS 1000ML 1,000 ML 50 ML IV (12:59)
--- NOTE | 2025-04-10 13:09 | EXP.ANES.CKL ---
[facility] Disclaimer: The information contained in this section may have been updated after the patient was seen, as this information can be updated by other users. Medical History History of cigarette smoking Acute lateral meniscal injury of left knee COPD (chronic obstructive pulmonary disease) Hyperlipidemia Hypertension Surgical History H/O left knee surgery Total knee replacement status Family History Other No significant family history Social History (Updated 04/10/25 @ 12:44 by Ashley Mendoza RN) Smoking Status: Former smoker tobacco type: cigarettes packs per day: 3 pack-years: 126 years smoked: 42 alcohol intake: never substance use type: denies use current occupational status: other Travel in the last 8 weeks?: None caffeine: Yes Have you lived/traveled outside US in past 30 days?: No Contact w/someone who lives/traveled outside US past 30 days?: No Exposure to someone with infectious disease in past 14 days?: No Do you have a fever (greater than 100.4 F or 38 C)?: No Have you tested positive for COVID-19?: No Exposed to someone with COVID-19 in past 14 days?: No Do you have a sore throat?: No Do you have a cough?: No Do you have any weakness?: No Are you experiencing any nausea/vomitting?: No Do you have any diarrhea?: No Are you experiencing any unusual bleeding?: No Do you have any muscle aches/pain?: No Do you have any abdominal pain?: No Are you experiencing loss of taste or smell?: No [facility] Anesthesia Checklist Patient Identification Patient Identification: Arm Band Structural Data Admitted From: Home Planned Operative Procedure/s: Colonoscopy Consent for Planned Operative Procedure(s) Verified: Yes Verified Documents: Surgical Consent and History and Physical NPO Status Verified Time NPO: 00:00 Additional verifications Anesthesia Reactions: No Hx Blood Transfusions: No Blood Transfusion Reaction: No Airway Assessment Mallampati Score:: Class II C-Spine Mobility Assessed: Yes TMJ Mobility Assessed: Yes Dentition: Good Dentition Neurological Assessment Level of Consciousness: Awake, Alert and Appropriate Anesthesia Plan Anesthesia Risk discussed: Yes Anesthesia Plan: Verified ASA Class: III Anesthesia Type: MAC
[2025-04-10 13:36] VITALS: BP 119/56; PULSE 92; RESP 16; O2SAT 96
[2025-04-10 13:46] VITALS: BP 128/64; PULSE 90; RESP 16; O2SAT 96
[2025-04-10 13:56] VITALS: BP 121/75; PULSE 87; RESP 16; O2SAT 98
[2025-04-10 14:06] VITALS: BP 135/75; PULSE 86; RESP 16; O2SAT 98
== END 2025-04-10 14:06 | disposition home or self-care (01) ==
PROVIDERS: PCP Family Medicine; Visit Provider Internal Medicine Gastroenterology
PROC: 0DJD8ZZ Inspection of Lower Intestinal Tract, Via Natural or Artificial Opening Endoscopic (ICD-10-PCS; CPT 45378; principal; 2025-04-10 13:00)
DX: Z12.11 Encounter for screening for malignant neoplasm of colon (principal); K63.5 Polyp of colon; K64.0 First degree hemorrhoids; K64.1 Second degree hemorrhoids; J44.9 Chronic obstructive pulmonary disease, unspecified; I10 Essential (primary) hypertension; E78.5 Hyperlipidemia, unspecified; Z79.82 Long term (current) use of aspirin; Z88.0 Allergy status to penicillin; Z87.891 Personal history of nicotine dependence; Z86.0102 Personal history of hyperplastic colon polyps; Z86.0101 Personal history of adenomatous and serrated colon polyps
CPT/HCPCS: 45385; 88300; 88305; J2003; J2704; J7120

== ENCOUNTER 2025-05-27 15:45 | Outpatient (CLI) | payer MEDICARE, SELFPAY ==
--- NOTE | 2025-05-27 15:30 | CA_ITS ---
FINAL REPORT TECHNIQUE: Ultrasound images of the deep venous system were obtained from the left groin to the calf veins. CLINICAL HISTORY: PAIN AND EDEMA LLE,HX LT KNEE SURGERY SEVERAL MTHS AGO FINDINGS: The deep venous system is normally compressible. Normal flow is identified. IMPRESSION: No evidence of left lower extremity DVT. Reviewed, Interpreted and Dictated by Angela Snow MD Transcribed by Zabrina Leigh Authenticated and [facility]
--- OUTSIDE RECORDS SUMMARY | 2025-05-27 15:47 | XMS_ITS | CCD ---
Author Name Lizzy Skinner NP Address [address] [place] [address] Phone Organization [facility] Phone Care Team Providers Care Rubber Trimmer Name Role Phone Lizzy Skinner NP Primary Care Provider Unavaila ble Unavailable Chronic Care Management Unavaila ble Summary Purpose DataExchange Insurance Providers Payer name Policy type / Coverage type Covered green party ID Effective Begin Date Effective End Date [facility] [id number] Unknown Unknown Family history Father Diagnosis Age [...] Former User 10/09/[address]: [id number] Never drinks alco hol 10/09/2024 Illegal/Recreational drug [...] 10/09/2024 Active Coronary artery disease invo lving [place] coronary artery of [place] heart with angina pectoris ICD-10: I25.119 05/27/2022 [...] 62.5 mcg-25 mcg/actuation powder for inhalation RxNorm: 7217516 Take 1 Puff(s) Inhalation every day 5 01/02/20 26 Active lisinopril (PRINIVIL,ZESTRIL ) 20 MG tablet RxNorm: 485919 Take 1 Tablet(s) Oral every day 5 No Stop Date Active atorvastatin 20 mg tablet RxNorm: 892363 Take 1 Tablet(s) Oral every night at bedtime 5 01/02/20 26 Active furosemide (LASIX) 40 MG tablet RxNorm: 893610 Take 1 Tablet(s) Oral every day 5 No Stop Date Active sildenafil (VIAGRA) 50 MG tablet RxNorm: 862024 Take 1 Tablet(s) Oral every day as needed 5 No Stop Date Active sildenafil (VIAGRA) 50 MG tablet RxNorm: 491191 Take 1 Tablet(s) Oral every day as needed 5 09/13/19 25 Inactive furosemide (LASIX) 40 MG tablet RxNorm: 472680 Take 1 Tablet(s) Oral every day 5 09/26/19 25 Inactive atorvastatin (LIPITOR) 40 MG tablet RxNorm: 963082 TAKE 1 TABLET BY MOUTH ONCE DAILY AT NIGHT 5 No Stop Date Active lisinopril (PRINIVIL,ZESTRIL ) 20 MG tablet RxNorm: 277661 Take 1 Tablet(s) Oral every day 4 10/10/19 25 Inactive betamethasone valerate (VALISONE) 0.1 % ointment RxNorm: 138923 Apply 1 Application topically to the appropriate area as directed 2 (Two) Times a Day. 4 No Stop Date Active potassium chloride 10 MEQ CR tablet RxNorm: 100890 Take 1 Tablet(s) Oral every day . 4 No Stop Date Active amLODIPine (NORVASC) 10 MG tablet RxNorm: 929212 Take 1 Tablet(s) Oral every day . 4 No Stop Date Active nitroglycerin (NITROSTAT) 0.4 MG SL tablet RxNorm: 853051 Place 1 tablet under the tongue Every 5 (Five) Minutes As Needed for Chest Pain. Take no more than 3 doses in 15 minutes. 4 No Stop Date Active albuterol sulfate HFA 108 (90 Base) MCG/ACT inhaler RxNorm: 2301704 Inhale 2 puffs As Needed for Wheezing. 3 No Stop Date Active Medication Administered No Medication Administered data Results Observation Observation Code Item Item Code Result Date Service Location Hemoccult Screening Immunoassay G0328 Fecal Occult Blood Test (FOBT) Screening 11861-0 SEE COMMENT 11/14/19 [facility] [address] [place] [address] Procedures Procedure Codes Date Functional Status Assessed CPT-4: 1170F 10/09 MED LIST DOCD IN [facility] CPT-4: 1159F 10/09/2024 RVW MEDS BY RX/DR IN [facility] CPT-4: 1160F 2024 Screening for clinical [...] 1: 138/80 Code: 8480-6 BMI: 39.2 Code: 62165-5 Heart Rate 1: 103 bpm Height: 5'7 Code: 8302-2 Respiratory Rate: 16 bpm SpO2: 96% Temperature: 36.9 (C) / 98.4 (F) Weight: 250 lbs Code: 07287-0 Reason For Visit Reason For Visit Effective Dates Notes new patient welcome visit 10/09/2024 Encounters Encounter Performer Location Location Address Codes Date ([address]) Home or Residence Visit RECORDS OFFICER - Moderate Level, 60 mins Diagnosis: Encounter for general adult medical examination without abnormal findings[ICD10: Z00.00] Diagnosis: Chronic heart failure with preserved ejection fraction (HFpEF)[ICD10: I50.32] Diagnosis: Primary hypertension[ICD10 : I10] Diagnosis: Other emphysema[ICD10: J43.8] Diagnosis: Chronic pain of both knees[ICD10: M25.561] Diagnosis: Pain in right knee[ICD10: M25.561] Diagnosis: Pain in left knee[ICD10: M25.562] Diagnosis: Other chronic pain[ICD10: G89.29] Lizzy Skinner [place] [facility] [place] [address] CPT-4: 46453 10/09/2024 Plan of Care Planned Activity Notes Codes Status Date Appointment: Dian Kaur WPtel: [address] [place] [address] [id number] [facility] 11/26/2024 Visit Plan: This is a pleasant [...] Appointment: Lizzy Skinner WPtel: [address] [address] 10/09/2024 Patient Education: Patient Medication [...]
--- OUTSIDE RECORDS SUMMARY | 2025-05-27 15:48 | XMS_ITS | Encounter Summary ---
Author Organization [employer] ([place], [place], [place], [place], [place]) Address [address] [place] [address] Care Team Providers Care Generation Technician Name Role Phone Farideh Gimenez Primary Care Provider Unavailabl e Encounter Details Date Type Department Care Team (Late st Contact Info) Description 06/30/2018 Transcribed Document [facility] Radiology [address] [place] [address] Provider, Jaswinder Zarco MD Social [...] Miscellaneous Notes * Cerner Conversion Note - dillan Zarco ProviderMD - 06/30/2018 1:59 PM EST PAT [...] Source : Stated Height Entry Format : Lawrence Height, Feet : 5 ft(Converted to: 152 cm, 60 Inch) Height, Inches : 7 Inch(Converted to: 0 ft 7 Inch, 17.78 cm) Clinical Height : 170.18 cm Weight Source : Standing scale Weight Entry Format : Lawrence Clinical Dosing Weight : 128.18 kg Weight, Pounds : 282 lb Body Surface Area (BSA) : 2.34 m2 Body Mass Index : 44.3 kg/m2 (>HHI) [place] Body Weight : 65 kg Akosua Quiroz [...] 06/30/2018 13:02:36 EST by Akosua Quiroz, CRISTEL) Infectious Disease History Infectious Disease History : [...] Obtained From : Patient Primary Language : [place] Citizen Preferred Communication Mode : Verbal Communication Barrier [...] - 06/30/2018 12:59 EST Electronically signed by [facility], [facility] Conversion Hairspring Cutter Cerner at 10/20/2022 12:35 PM CDT documented in this encounter Plan of Treatment Not on file documented as of this encounter Visit Diagnoses Not on filedocumented in this encounter Care Teams Generation Technician Relationship Specialty Start Date End Date Farideh Gimenez PCP - General 02/26/25 documented as of this encounter
--- OUTSIDE RECORDS SUMMARY | 2025-05-27 15:48 | XMS_ITS | Clinical Summary ---
Author Organization [facility] Address [address] [place] [address] Care Team Providers Care Case Finisher Name Role Phone Refugio Fink MD Primary Care Provider [phone]- [phone] Allergies Active Allergy Reactions Criticality Noted Date [...] MG SL tabletIndication s:Coronary artery disease involving [place] coronary artery of [place] heart with angina pectoris Place 1 tablet [...] current dosing Coronary artery disease invo lving [place] coronary artery of [place] heart with angina pectoris 05/27/2022 Overview (11/15/2022): Cardiac catheterization (11/15/2022): Mild CAD. Assessment & Plan (05/27/2022 4:10 PM EST): Stable. Continue atorvastatin 10 mg every other day Encounters Date Type Department Care Team Description 04/03/2025 Telephone [facility] DE[facility] [address] [place] [address] Navigator, Lung 03/06/2025 Telephone [facility] DEPT [address] [place] [address] Navigator, Lung 03/01/2025 Refill [facility] [address] [place] [address] Sean Ross MD Acute on chronic diastolic (congestive) heart failure from Last 3 Months Immunizations Immunization Administration [...] Answer Date Recorded Current Living Arrangements home 06/1 01/2023 Potentially Unsafe Housing Conditions Not on karolina [...] Description 04/10/2026 3:30 PM EST Office Visit [facility] [address] [place] [address] Beto Mccurdy MD [address] [facility] [address] [place] [address] Health Maintenance Due Date Last Done Comments DIABETIC EYE EXAM 09/29/1965 DIABETIC FOOT EXAM 09/29/1967 URINE MICROALBUMIN-CREATININ E RATIO (uACR) 09/29/1967 TDAP/TD VACCINES (1 - Tdap) 1976 COLOGUARD 2002 COLON CANCER SCREENING 5 YEA R SIGMOIDOSCOPY 2002 CT COLONOGRAPHY 2002 FECAL OCCULT BLOOD TEST 2002 FIT Testing (1 year) 2002 HEPATITIS C SCREENING 02/18/2021 COVID-19 Vaccine (3 - Pfizer risk series) 04/16/2021 03/19/2021, 08/08/2020 AAA SCREEN ONCE 2022 HEMOGLOBIN A1C 05/17/2023 11/15/2022 ANNUAL WELLNESS VISIT 09/11/2024 09/12/2023 , 09/12/2023, 09/07/2022 LIPID PANEL 09/11/2024 09/12/2023, 10/28, 09/07/2022 INFLUENZA VACCINE 12/28/2024 02/18/2020, , 02/21/2019, Additional history exists LUNG CANCER SCREENING 01/18/2025 01/19/2024 , 11/15/2022, 11/02/2022 COLONOSCOPY 12/11/2028 12/11/2018 COLORECTAL CANCER SCREENING 12/11/2028 Pneumococcal Vaccine 50+ Completed 06/02/2023 ZOSTER VACCINE Completed 07/06/2023, 05/04/2023 Procedures Procedure Name Priority Date/Time Associated Diagnosis Comments CT CHEST LOW DOSE WO CANCER SCREENING Routine 01/19/2024 2:08 PM EDT Screening for lung cancer Personal history of nicotine dependence LIPID PANEL Routine 09/12/2023 10:52 AM EDT Coronary artery disease involving [place] coronary artery of [place] heart with angina pectoris HEMOGLOBIN A1C STAT 11/15/2022 7:02 AM EDT Coronary artery disease involving [place] coronary artery of [place] heart with unstable angina pectoris SCANNED - [...] MD 01/23/2024 8:27 AM EDT Workstation ID: [id number] [facility] 01/23/2024 8:[address] CHEST LOW [...] MD 01/23/2024 8:27 AM EDT Workstation ID: [id number] Sean Ross MD [facility] ORDERABLES Final Result * Lipid Panel (09/12/2023 10:52 AM EDT) Total Cholesterol 155 100 - 199 mg/dL [facility] Triglycerides 71 0 - 149 mg/dL [facility] HDL Cholesterol 60 >39 mg/dL [facility] VLDL Cholesterol [place] 14 5 - 40 mg/dL [facility] LDL Chol Calc (NIH) 81 0 - 99 mg/dL [facility] Blood 09/12/2023 10:5 2 AM EDT 09/12/2023 Narrative [facility] ([facility]) - 09/13/2023 6:11 AM EDT Performed at: 01 - [facility] [address] [place] [address] [id number] Sanitor: Kojo Roberson PhD, Phone: [phone] Patient Fasting: Y Sean Ross MD LAB BLOOD ORDERABLES Fin al Result Performing Organization Address City/[facility]/ZIP Co de Phone Number [facility] ([facility]) [address] [place] [address], [place] [phone] [facility] [address] [place] [address], [place] [phone] * Hemoglobin A1c (11/15/2022 7:02 AM EDT) [facility] Hemoglobin A1C 5.60 4.80 - 5.60 % 11/15/2022 9:01 AM EDT [facility] Blood Line / Unknown 11/15/2022 7: 02 AM EDT 11/15/2022 7:12 AM EDT Narrative [facility] - 11/15/2022 9:01 AM EDT Hemoglobin A1C Ranges: Increased Risk for Diabetes 5.7% to 6.4% Diabetes >= 6.5% Diabetic Goal < 7.0% Jb Foley PA-C LAB BLOOD ORDERABLES Final R esult [facility]
[address] [place] [address], * SCANNED - COLONOSCOPY (12/11/2018) Izaiah Bay MD CHART REVIEW TABS Final Result from Last 3 Months or Most Recently Relevant to Health Maintenance Insurance [employer] HMO Advance Directives * CPR (Attempt to Resuscitate) (Latest Code Status on File) Date Activated Date Inactivated Comments 11/15/2022 8:36 AM 11/15/2022 3:50 PM Question Answer Comments Code Status (Patient has no pulse and is not breathing): CPR (Attempt to Resuscitate) Medical Interventions (Patie nt has pulse or is breathing): Full Support Release to patient: Routine Release Care Teams Case Finisher Relationship Specialty Start Date End Date Refugio Fink MD [address] [place] [address] [place] [address] PCP - General 11/29/24
--- OUTSIDE RECORDS SUMMARY | 2025-05-27 15:48 | XMS_ITS | Encounter Summary ---
Author Organization [employer] ([place], [place], [place], [place], [place]) Address [address] [place] [address] Care Team Providers Care Room Service Server Name Role Phone Farideh Gimenez Primary Care Provider Unavailabl e Encounter Details Date Type Department Care Team (Late st Contact Info) Description 06/30/2018 Transcribed Document [facility] 1 [place] [address] ProviderJaswinder MD Social History Tobacco Use Types Packs/Day Years Used Date Smoking Tobacco: Never Assessed Sex and Gender Information Value Date Recorded Sex Assigned at Male 11/24/2021 8:26 PM CDT Legal Sex Male 8:26 PM CDT Gender Identity Male 11/24/2021 8:26 PM CDT Sexual Orientation Not on file documented as of this encounter Miscellaneous Notes * Cerner Conversion Note - [facility] Haroldo ProviderMD - 06/30/2018 7:21 PM EST Orthopedic Nurse Navigator Entered On: 07/03/2018 14:32 EST Performed On: 06/30/2018 18:21 EST by Maris Agudelo RN Orthopedic Nurse Navigator Assessment Attended Joint Academy : Yes Joint AcademyType : Online Joint Academy Date : 06/30/2018 EST Maris Agudelo RN - 07/03/2018 14:32 EST Electronically signed by Ofelia [facility] Conversion Lens Assorter Cerner at 10/20/2022 12:34 PM CDT documented in this encounter Plan of Treatment Not on file documented as of this encounter Visit Diagnoses Not on filedocumented in this encounter Care Teams Room Service Server Relationship Specialty Start Date End Date Farideh Gimenez PCP - General 02/26/25 documented as of this encounter
--- OUTSIDE RECORDS SUMMARY | 2025-05-27 15:48 | XMS_ITS | Encounter Summary ---
Author Organization [employer] ([place], [place], [place], [place], [place]) Address [address] [place] [address] Care Team Providers Care Irrigator Gravity Flow Name Role Phone Farideh Gimenez Primary Care Provider Unavailabl e Encounter Details Date Type Department Care Team (Late st Contact Info) Description 07/05/2018 Transcribed Document [facility] 1 [place] [address] Provider, Jaswinder Zarco MD Social [...] Miscellaneous Notes * Cerner Conversion Note - [facility] Haroldo ProviderMD - 07/05/2018 9:57 AM EST Pre Procedure Adult Entered On: 07/05/2018 9:16 EST Performed On: 07/05/2018 8:57 EST by Yousif Corbett Rn Height and Weight, Clinical Dosing Height Source : Stated Height Entry Format : [place] Height, Feet : 5 ft(Converted to: 152 cm, 60 Inch) Height, Inches : 7 Inch(Converted to: 0 ft 7 Inch, 17.78 cm) Clinical Height : 170.18 cm Weight Source : Standing scale Weight Entry Format : [place] Clinical Dosing Weight : 130 kg Weight, Pounds : 286 lb Body Surface Area (BSA) : 2.36 m2 Body Mass Index : 44.9 kg/m2 (>HHI) [place] Body Weight : 65 kg Yousif Corbett [...] Obtained From : Patient Primary Language : Ukrainian Preferred Communication Mode : Verbal Communication Barrier [...] Risk : Moderate to high injury risk SANATNA Hx Falls Immediate/Within 3 Months : Yes Santana Secondary Diagnosis : No SANTANA Use of Ambulatory Aid : Crutches/Cane/Walker SANTANA IV Therapy or IV Access : Yes Santana Gait/Transferring : Normal, bedrest, immobile Santana Mental Status : Oriented to own ability Santana Fall Risk Score : 60 SANTANA Fall Scale Risk Level : 46 or > High Risk [place] Fall Interventions : Adequate lighting, Bed in [...] - 07/05/2018 8:57 EST Electronically signed by [facility] Conversion Electric Vehicle Electrician Cerner at 10/20/2022 12:34 PM CDT documented in this encounter Plan of Treatment Not on file documented as of this encounter Visit Diagnoses Not on filedocumented in this encounter Care Teams Irrigator Gravity Flow Relationship Specialty Start Date End Date Farideh Gimenez PCP - General 02/26/25 documented as of this encounter
--- OUTSIDE RECORDS SUMMARY | 2025-05-27 15:48 | XMS_ITS | Encounter Summary ---
Author Organization [employer] ([place], [place], [place], [place], [place]) Address [address] [place] [address] Care Team Providers Care Tong Carrier Name Role Phone Farideh Gimenez Primary Care Provider Unavailabl e Encounter Details Date Type Department Care Team (Late st Contact Info) Description 07/05/2018 Transcribed Document [facility] Radiology 1 [place] [address] Provider, Jaswinder Zarco MD Social [...] Notes * Cerner Conversion Note - Jaswinder Zarco ProviderMD - 07/05/2018 1:37 PM EST [facility] Main OR PACU Summary Primary Physician: YESSENIA VILLAGOMEZ JR, JR, MD-ORT Finalized Date/Time: 07/05/18 15:25:41 Pt. Name: MARTA RAZO/Sex: 1955 Male Med Rec #: [id number] Physician: YESSENIA VILLAGOMEZ JR, JR, MD-ORT Financial #: [id number] Pt. Type: O Room/Bed: [facility]/3 Admit/Disch: 07/05/18 04:47:00 - Institution: [facility] OR PACU Case Times Entry 1 In PACU I 07/05/18 14:14:00 Ready for PACU 07/05/18 15:20:00 Discharge Discharge from PACU 07/05/18 15:20:00 I Last Modified By: WHIT PACHECO, CRISTEL 07/05/18 15:25:27 [facility] Main OR PACU Case Times Audit 07/05/18 15:25:27 Melt House Supervisor: STEPHANIE Modifier: STEPHANIE <+> 1 Ready for PACU Discharge <+> 1 Discharge from PACU I [facility] Main OR PACU Acuity Entry 1 Start Time 07/05/18 14:14:00 Stop Time 07/05/18 15:20:00 Acuity Level [facility] PACU Acuity I Last Modified By: WHIT PACHECO RN 07/05/18 15:25:35 [facility] Main OR PACU Acuity Audit 07/05/18 15:25:35 Melt House Supervisor: STEPHANIE Modifier: STEPHANIE <+> 1 Stop Time Finalized By: WHIT PACHECO, RN Document Signatures Signed By: WHIT PACHECO RN 07/05/18 15:25 Electronically signed by Ofelia [facility] Conversion Marine Oil Terminal Superintendent Cerner at 10/20/2022 12:34 PM CDT documented in this encounter Plan of Treatment Not on file documented as of this encounter Visit Diagnoses Not on filedocumented in this encounter Care Teams Tong Carrier Relationship Specialty Start Date End Date Farideh Gimenez PCP - General 02/26/25 documented as of this encounter
--- OUTSIDE RECORDS SUMMARY | 2025-05-27 15:48 | XMS_ITS | Clinical Summary ---
Author Organization [employer] ([place], [place], [place], [place], [place]) Address [address] [place] [address] Care Team Providers Care Photography Intern Name Role Phone Farideh Gimenez Primary Care Provider Unavailabl e Encounters Date Type Department Care Team Description 02/26/2025 9:50 AM EDT - 02/26/2025 11:59 PM EDT Hospital Encounter [facility] Ultrasound [address] [place] [address] Mass of lower leg, left Discharge Disposition: Home or Self Care from Last 3 Months Social History Tobacco Use Types Packs/Day Years Used Date Smoking Tobacco: Never Assessed Sex and Gender Information Value Date Recorded Sex Assigned at Male 11/24/2021 8:26 PM CDT Legal Sex Male 8:26 PM CDT Gender Identity Male 11/24/2021 8:26 PM CDT Sexual Orientation Not on file Plan of Treatment Health Maintenance Due Date Last Done Comments CT Colonography 1955 Colonoscopy 1955 Colorectal Cancer Screening 1955 FOBT/FIT 1955 Fit-DNA (Cologuard) 1955 Sigmoidoscopy 1955 Depression Screening (12+) 1969 Tobacco Cessation Counseling and Screening (12+) 1969 Hepatitis C Screening 09/29/1975 DTAP/TDAP/TD VACCINES (1 - Tdap) 1976 Falls Risk Screening 05/30/2024 Medicare IPPE (Welcome to Medicare) [id number] 05/30/2024 COVID-19 VACCINE ( season) 2025, 08/08/2020 Influenza Vaccine (#1) 2025 Respiratory Syncytial Virus (RSV) Adult or (1 - 1-dose 75+ series) 2032 Pneumococcal 50+ years Completed 06/02/2023 Shingles Vaccine (Zoster) Completed 07/06/2023, 10/2022 Procedures Procedure Name Priority Date/Time Associated Diagnosis Comments US DOPPLER VENOUS LEG LEFT STAT 02/26/2025 10:58 AM EDT Mass of lower leg, left from Last 3 Months Results * US DOPPLER VENOUS LEG LEFT (02/26/2025 10:58 AM EDT) Anatomical Region Laterality Modality Lower Extremity Ultrasound 02/26/2025 11:4 2 AM EDT Impressions 02/26/2025 11:54 AM EDT No evidence of a left lower extremity deep venous thrombosis. Images reviewed, interpreted, and dictated by Dr. Moy Mac. Transcribed by Julianne Radford PA-C. Narrative 02/26/2025 11:54 AM EDT LEFT LOWER EXTREMITY VENOUS DUPLEX DOPPLER EXAMINATION. HISTORY: Lower extremity swelling. PROCEDURE: Multiple transverse and longitudinal scans were performed of the femoropopliteal deep venous system, with augmentation and compression maneuvers. FINDINGS: Normal phasic flow was noted in the visualized deep venous system. No intraluminal increased echogenicity is noted to suggest thrombus. There is normal compression and augmentation of the venous structures. No abnormal venous collaterals are seen. No venous reflux is demonstrated. There is a 47 mm fluid collection in the popliteal fossa consistent with a Osorio's cyst. Procedure Note Anni Mac MD - 02/26/2025 LEFT LOWER EXTREMITY VENOUS DUPLEX DOPPLER EXAMINATION. HISTORY: Lower extremity swelling. PROCEDURE: Multiple transverse and longitudinal scans were performed of the femoropopliteal deep venous system, with augmentation and compression maneuvers. FINDINGS: Normal phasic flow was noted in the visualized deep venous system. No intraluminal increased echogenicity is noted to suggest thrombus. There is normal compression and augmentation of the venous structures. No abnormal venous collaterals are seen. No venous reflux is demonstrated. There is a 47 mm fluid collection in the popliteal fossa consistent with a Osorio's cyst. IMPRESSION: No evidence of a left lower extremity deep venous thrombosis. Images reviewed, interpreted, and dictated by Dr. Moy Mac. Transcribed by Julianne Radford PA-C. us Jaymie RAI CV VASCULAR ORDERABLES Final Res ult from Last 3 Months Insurance [facility] MAP Care Teams Photography Intern Relationship Specialty Start Date End Date Farideh Gimenez PCP - General 02/26/25
--- OUTSIDE RECORDS SUMMARY | 2025-05-27 15:48 | XMS_ITS | Encounter Summary ---
Author Organization [employer] ([place], [place], [place], [place], [place]) Address [address] [place] [address] Care Team Providers Care Online Merchandiser Name Role Phone Farideh Gimenez Primary Care Provider Unavailabl e Encounter Details Date Type Department Care Team (Late st Contact Info) Description 07/05/2018 Transcribed Document [facility] Radiology 1 [place] [address] Provider, Jaswinder Zarco MD Social [...] Note - Jaswinder Goldstein MD - 07/05/2018 6:16 PM EST [...] vacc inj 0.5 mL 0.5 mL, IntraMuscular, [id number] tiotropium 18 mcg, Inhalation, Daily Continuous: (0) [...] Oral, TID phenol 1.4% throat spray 5 [place], Oral, Q2H traZODone 50 mg tab 50 [...] swelling, No deformity, Normal gait. Integumentary: Warm, [place], Intact, No pallor, No rash, WOUND STABLE. [...] hour. ACT: CONSULT PT/OT as per Dr. mercado rec. For urinary retention use bladder scanner, you may anchor FC. If no or low UOP you may give 250 mL NS IV over one hour. AM Labs BMP & Hgb/HCT. If pt. spikes fever > 101* F, encourage pt to use Respirex first, then you may give Tylenol 650 mg PO/MT x 1. If no response in 2 [...] on filedocumented in this encounter Care Teams Online Merchandiser Relationship Specialty Start Date End Date Farideh Gimenez PCP - General 02/26/25 documented as of this encounter
--- OUTSIDE RECORDS SUMMARY | 2025-05-27 15:48 | XMS_ITS | Encounter Summary ---
Author Organization [facility] Address [address] [place] [address] Care Team Providers Care Dial Lathe Operator Name Role Phone Refugio Fink MD Primary Care Provider +1- [phone] Encounter Details Date Type Department Care Team (Late st Contact Info) Description 04/03/2025 Telephone [facility] DE[facility] [address] [place] [address] Navigator, Lung Social History Tobacco [...] encounter Miscellaneous Notes * Telephone Encounter - Dorian Shukla - 04/03/2025 10:05 AM EST Patient Call Reason for call: Overdue Outcome of call: Broadcast call made Additional Notes: Automated Reminder. documented in this encounter Plan of Treatment Upcoming Encounters Date Type Department Care Team (Late st Contact Info) Description 04/10/2026 3:30 PM EST Office Visit [facility] CARDIOLOG[facility] [address] [place] [address] [address] Beto Mccurdy MD [address] [facility] [address] [place] [address] documented as of this encounter Visit Diagnoses Not on filedocumented in this encounter Care Teams Dial Lathe Operator Relationship Specialty Start Date End Date Refugio Fink MD [address] [place] [address] PCP - General 11/29/24 documented as of this encounter
--- OUTSIDE RECORDS SUMMARY | 2025-05-27 15:48 | XMS_ITS | Referral Summary ---
Author Organization [employer] ([place], [place], [place], [place], [place]) Address [address] [place] [address] Care Team Providers Care Pitching Coach Name Role Phone Farideh Gimenez Primary Care Provider Unavailabl e Encounters Date Type Department Care Team Description 02/26/2025 9:50 AM EDT - 02/26/2025 11:59 PM EDT Hospital Encounter [facility] Ultrasound [address] [place] [address] Mass of lower leg, left [...] file Plan of Treatment Not on file Procedures Procedure Name Priority Date/Time Associated Diagnosis [...] Moy Mac. Transcribed by Julianne Radford PA-C. Jaymie RAI CV VASCULAR ORDERABLES Final Res ult from Last 3 Months Insurance [facility] [place] [id number] [facility] ACCESS O MAP Care Teams Pitching Coach Relationship Specialty Start Date End Date Farideh Gimenez PCP - General 02/26/25
--- OUTSIDE RECORDS SUMMARY | 2025-05-27 15:48 | XMS_ITS | Encounter Summary ---
Author Organization [employer] ([place], [place], [place], [place], [place]) Address [address] [place] [address] Care Team Providers Care Processing Technician Name Role Phone ArtgideonFarideh Primary Care Provider Unavailabl e Encounter Details Date Type Department Care Team (Late st Contact Info) Description 07/05/2018 Transcribed Document [facility] Radiology 1 [place] [address] Provider, Jaswinder Zarco MD Social [...] Miscellaneous Notes * Cerner Conversion Note - [facility] Haroldo ProviderMD - 07/05/2018 6:15 PM EST [facility] [address] , [place] [address] Patient Copy Patient Information: Name: MARTA RAZO Current Date: 07/05/2018 17:15:18 : 1955 Patient Address: [address] [place] [id number] Patient Attending Physician: BRIDGETTE ARTHUR MD-INT Primary Care Provider: EDITH LUONG MD Primary Care Provider Discharge Diagnosis: Weight on Admission: 282 lb, 0 oz Comment: Discharge Instructions: Medical Equipment for Home Use: [employer] [facility] for [phone] [facility] [phone] Immunizations Documented During Stay: No Immunizations Found [...] Assistance with quitting is available by contacting 5-674-WPSN-NOW. This is a free resource providing counseling, [...] Be sure to sign up for the [employer] patient portal, which gives you 24/ access to your medical information ??? including these discharge instructions ??? using your computer, smartphone, or tablet. Just go to [employer] to get started. Questions? Call . [facility] would like to thank you for allowing us to assist you with your healthcare needs. IDUNG ROBERT WAYNE, (or inside account representative) have received the above patient education materials/instructions and have verbalized understanding: Patient Signature _ Date/Time Patient Proof Machine Operator Supervisor Signature (if needed) Date/Time Clinician/Hospital Proof Machine Operator Supervisor Signature (if needed) Date/Time Electronically signed by Ofelia [facility] Conversion Skip Pitman Cerner at 10/20/2022 12:34 PM CDT documented in this encounter Plan of Treatment Not on file documented as of this encounter Visit Diagnoses Not on filedocumented in this encounter Care Teams Processing Technician Relationship Specialty Start Date End Date Farideh Gimenez PCP - General 02/26/25 documented as of this encounter
--- OUTSIDE RECORDS SUMMARY | 2025-05-27 15:48 | XMS_ITS | Encounter Summary ---
Author Organization [employer] ([place], [place], [place], [place], [place]) Address [address] [place] [address] Care Team Providers Care Braze Operator Name Role Phone Farideh Gimenez Primary Care Provider Unavailabl e Encounter Details Date Type Department Care Team (Late st Contact Info) Description 08/06/2019 Transcribed Document [facility] 1 [place] [address] ProviderJaswinder MD Social History Tobacco Use Types Packs/Day Years Used Date Smoking Tobacco: Never Assessed Sex and Gender Information Value Date Recorded Sex Assigned at Male 11/24/2021 8:26 PM CDT Legal Sex Male 8:26 PM CDT Gender Identity Male 11/24/2021 8:26 PM CDT Sexual Orientation Not on file documented as of this encounter Miscellaneous Notes * Cerner Conversion Note - [facility] Haroldo Goldstein MD - 08/06/2019 2:45 PM EDT Orthopedic Nurse [...] on filedocumented in this encounter Care Teams Braze Operator Relationship Specialty Start Date End Date Farideh Gimenez PCP - General 02/26/25 documented as of this encounter
--- OUTSIDE RECORDS SUMMARY | 2025-05-27 15:48 | XMS_ITS | Encounter Summary ---
Author Organization [facility] Address [address] [place] [address] Care Team Providers Care Hr Recruiter Name Role Phone Refugio Fink MD Primary Care Provider +1- [phone] Encounter Details Date Type Department Care Team (Late st Contact Info) Description 03/06/2025 Telephone [facility] DE[facility] [address] [place] [address] Navigator, Lung Social History Tobacco [...] * Telephone Encounter - Gayla Lung - 03/06/2025 1:51 PM EDT Patient Call Reason for call: Overdue Outcome of call: Broadcast call made Additional Notes: Automated Message Reminder documented in this encounter Plan of Treatment Upcoming Encounters Date Type Department Care Team (Late st Contact Info) Description 04/10/2026 3:30 PM EST Office Visit [facility] CARDIOLOGY [address] [place] [address] [place] [address] Beto Mccurdy MD [address] [facility] [facility] [address] [place] [address] documented as of this encounter Visit Diagnoses Not on filedocumented in this encounter Care Teams Hr Recruiter Relationship Specialty Start Date End Date Refugio Fink MD [address] [place] [address] PCP - General 11/29/24 documented as of this encounter
--- OUTSIDE RECORDS SUMMARY | 2025-05-27 15:48 | XMS_ITS | Encounter Summary ---
Author Organization [employer] ([place], [place], [place], [place], [place]) Address [address] [place] [address] Care Team Providers Care Bean Sprout Laborer Name Role Phone Farideh Gimenez Primary Care Provider Unavailabl e Encounter Details Date Type Department Care Team (Late st Contact Info) Description 07/05/2018 Transcribed Document [facility] 1 [place] [address] Provider, Jaswinder Zarco MD Social [...] Note - Jaswinder Zarco ProviderMD - 07/05/2018 6:14 PM EST Discharge Instructions Entered On: 07/05/2018 17:15 EST Performed On: 07/05/2018 17:14 EST by Kasey Stauffer Social Worker-Edgardo DC Instructions HWD Stroke/TIA Discharge Ins : Open Heart Failure Discharge Ins : Open Warfarin Discharge Ins : Shirley Martinez RN - 07/05/2018 20:22 EST Medical Equipment For Home Use : [facility] [phone] Home Health Services : [facility] [phone] Kasey Stauffer Social Worker-Jewel Gauger - 07/05/2018 17:14 EST Heart Failure Discharge [...] on filedocumented in this encounter Care Teams Bean Sprout Laborer Relationship Specialty Start Date End Date Farideh Gimenez PCP - General 02/26/25 documented as of this encounter
--- OUTSIDE RECORDS SUMMARY | 2025-05-27 15:48 | XMS_ITS | Encounter Summary ---
Author Organization [employer] ([place], [place], [place], [place], [place]) Address [address] [place] [address] Care Team Providers Care Medical Records Clerk Name Role Phone Farideh Gimenez Primary Care Provider Unavailabl e Encounter Details Date Type Department Care Team (Late st Contact Info) Description 07/05/2018 Transcribed Document [facility] Radiology [address] [place] [address] Provider, Jaswinder Zarco MD Social [...] [facility] ProviderMD - 07/05/2018 4:46 PM EST [...] Obtained From : Patient Primary Language : Mozambican Preferred Communication Mode : Verbal Communication Barrier [...] Level : 46 or > High Risk [place] Fall Interventions : Adequate lighting, Assistive devices [...] Source : Stated Height Entry Format : [place] Height, Feet : 5 ft(Converted to: 152 cm, 60 Inch) Height, Inches : 7 Inch(Converted to: 0 ft 7 Inch, 17.78 cm) Clinical Height : 170.18 cm Weight Source : Standing scale Weight Entry Format : [place] Clinical Dosing Weight : 130 kg Weight, Pounds : 286 lb Body Surface Area (BSA) : 2.36 m2 Body Mass Index : 44.9 kg/m2 (>HHI) [place] Body Weight : 65 kg ROLAN SMITH [...] on filedocumented in this encounter Care Teams Medical Records Clerk Relationship Specialty Start Date End Date Farideh Gimenez PCP - General 02/26/25 documented as of this encounter
--- OUTSIDE RECORDS SUMMARY | 2025-05-27 15:48 | XMS_ITS | Encounter Summary ---
Author Organization [employer] ([place], [place], [place], [place], [place]) Address [address] [place] [address] Care Team Providers Care Head Waitress Name Role Phone PernellFarideh Primary Care Provider Unavailabl e Encounter Details Date Type Department Care Team (Late st Contact Info) Description 07/05/2018 Transcribed Document [facility] 1 [place] [address] Provider, Jaswinder Zarco MD Social [...] Miscellaneous Notes * Cerner Conversion Note - [facility] Haroldo ProviderMD - 07/05/2018 8:19 PM EST [facility] [address] , [place] [address] Patient Copy Patient Information: Name: MARTA RAZO Current Date: 07/05/2018 19:19:57 : 1955 Patient Address: [address] [place] [id number] Patient Attending Physician: BRIDGETTE ARTHUR MD-INT Primary Care Provider: EDITH LUONG MD Primary Care Provider Discharge Diagnosis: obstructive sleep apnea; COPD (chronic obstructive pulmonary disease); Hypertension; Morbid obesity with BMI of 40.0-44.9, adult; Status post unicompartmental knee replacement, right; Unilateral primary osteoarthritis, right knee Weight on Admission: 282 lb, 0 oz Comment: Follow-up Instructions: With: Address: When: YESSENIA VILLAGOMEZ [address] [facility], [address] [place] [address] [employer] ([employer] Best In 13 days 07/18/2018 Comments: Appointment has been made Discharge Instructions: Medical Equipment for Home Use: [employer] for [phone] Home Health Services: [facility] [phone] Immunizations Documented During Stay: No Immunizations Found [...] before making changes. ??? Work with a nutrition director (dietitian) to develop a meal plan that works best for you. High vitamin K foods Foods that are high in vitamin K contain more than 100 mcg (micrograms) per serving. These include: ??? Broccoli (cooked) ? ? cup has 110 mcg. ??? [place] sprouts (cooked) ? ? cup has 109 [...] ? ? cup has 444 mcg. ??? Monegasque chard (cooked) ? ? cup has 287 [...] ? ? cup has 11 mcg. ??? [place] with peel (raw) ? ? cup has 9 mcg. ??? Grapes ? ? cup has 12 mcg. ??? Jal ? 1 medium has 9 mcg. ??? [...] poultry. ??? Milk and dairy products. ??? [place] seeds. Actual amounts of vitamin K in [...] 03/13/2010 Document Revised: 12/05/2016 Document Reviewed: 08/18/2016 [email or web address] Interactive Patient Education ? 2017 [employer]vier Inc. What You Need to Know About [...] other medicines or supplements? Many prescription and bbhq-nqt-qemwdvv medicines can interfere with warfarin. Talk with your health care provider or your pharmacist before starting or stopping any new medicines. This includes ampg-jjy-zdnogod vitamins, dietary supplements, herbal medicines, and pain medicines. Your warfarin dosage may need to be adjusted. ??? Some common rwjw-jjq-dlyuilb medicines that may increase the risk of [...] that you work with a diet and nutrition director (dietitian). ??? Vitamin K decreases the effect [...] cooked. ??? Collards, raw or cooked. ??? Monegasque chard, raw or cooked. ??? Mustard greens, raw or cooked. ??? Turnip greens, raw or cooked. ??? Parsley, raw. ??? Broccoli, cooked. ??? Noodles, eggs, and spinach, enriched. ??? [place] sprouts, raw or cooked. ??? Beet greens, [...] diet. ??? You start or stop any jjff-xgf-vrwbtmk medicine, prescription medicine, or dietary supplement. ??? [...] 05/16/2006 Document Revised: 01/25/2017 Document Reviewed: 08/11/2016 [employer] Interactive Patient Education ? 2017 [employer] Inc. Warfarin Coagulopathy Introduction Warfarin (Coumadin?) coagulopathy [...] care provider before taking these. Prescription and acmx-xjn-lybxtjh medicine consistency is critical to warfarin management. [...] not take or discontinue any prescribed or xndy-mum-jfvakwd medicine except on the advice of your [...] K include spinach, kale, broccoli, cabbage, greens, [place] sprouts, asparagus, bok gustavo, coleslaw, and parsley. [...] Barley. Bulgur wheat. Millet. Bran muffins. Popcorn. [place] wafer crackers. ?? Vegetables Sweet potatoes. Spinach. Kale. Artichokes. Cabbage. Broccoli. Green peas. Carrots. Squash. ?? Fruits Berries. Pears. Apples. Oranges. Avocados. Prunes and raisins. Dried figs. ?? Meats and Other Protein Sources [place], kidney, palm, and soy beans. Split peas. [...] lionel has 11 g of protein. ?? [place] seeds - 1 oz has 5.5 g [...] floor. ?? Place frequently used items in nvmw-tf-jywpt places ?? Keep electrical cables out of [...] ? Using the bathroom. ? Using household ophthalmic medical assistant or toxic chemicals. ? Touching or taking [...] What is aspirin? Aspirin is a salicylate (eo-EBD-vj-ate). It works by reducing substances in the [...] may report side effects to FDA at 4-013-DDW-9169. What other drugs will affect aspirin? Ask [...] drugs may affect aspirin, including prescription and mzyl-wbw-cjzcrdq medicines, vitamins, and herbal products. Not all [...] to ensure that the information provided by [employer]. ('[employer]') is accurate, up-to-date, and complete, but no guarantee is made to that effect. Drug information contained herein may be time sensitive. [employer] information has been compiled for use by healthcare practitioners and consumers in the [place] and therefore [employer] does not warrant that uses outside of the [place] are appropriate, unless specifically indicated otherwise. [employer] drug information does not endorse drugs, diagnose patients or recommend therapy. [employer] drug information is an informational resource designed [...] effective or appropriate for any given patient. [employer] does not assume any responsibility for any aspect of healthcare administered with the aid of information [employer] provides. The information contained herein is not intended to cover all possible uses, directions, precautions, warnings, drug interactions, allergic reactions, or adverse effects. If you have questions about the drugs you are taking, check with your doctor, nurse or pharmacist. Copyright 3847-2034 [employer]. Version: 15.. Revision Date: 08/29/2017. gabapentin ([place] [...] are a day sleeper or work a hourly shift manager. Some people have thoughts about suicide while [...] may report side effects to FDA at 7-388-FAY-0867. What other drugs will affect gabapentin? Taking gabapentin with other drugs that make you sleepy can worsen this effect. Ask your doctor before taking a sleeping pill, narcotic medication, muscle relaxer, or medicine for anxiety, depression, or seizures. Other drugs may interact with gabapentin, including prescription and zxib-mbe-vyfdcos medicines, vitamins, and herbal products. Tell your [...] to ensure that the information provided by [employer]. ('[employer]') is accurate, up-to-date, and complete, but no guarantee is made to that effect. Drug information contained herein may be time sensitive. [employer] information has been compiled for use by healthcare practitioners and consumers in the [place] and therefore [employer] does not warrant that uses outside of the [place] are appropriate, unless specifically indicated otherwise. [employer] drug information does not endorse drugs, diagnose patients or recommend therapy. [employer] drug information is an informational resource designed [...] effective or appropriate for any given patient. [employer] does not assume any responsibility for any aspect of healthcare administered with the aid of information [employer] provides. The information contained herein is not intended to cover all possible uses, directions, precautions, warnings, drug interactions, allergic reactions, or adverse effects. If you have questions about the drugs you are taking, check with your doctor, nurse or pharmacist. Copyright 7568-9336 [employer]. Version: 14.01. Revision Date: 03/08/2017. oxycodone (ox i KOE [...] The extended-release form of oxycodone is for nktfvu-gts-afjop treatment of pain and should not be [...] against the law. Stop taking all other sxvxmy-upn-kemrb narcotic pain medicines when you start taking [...] on filedocumented in this encounter Care Teams Head Waitress Relationship Specialty Start Date End Date Farideh Gimenez PCP - General 02/26/25 documented as of this encounter
--- OUTSIDE RECORDS SUMMARY | 2025-05-27 15:48 | XMS_ITS | Encounter Summary ---
Author Organization [employer] ([place], [place], [place], [place], [place]) Address [address] [place] [address] Care Team Providers Care Fixing Carpenter Name Role Phone Farideh Gimenez Primary Care Provider Unavailabl e Encounter Details Date Type Department Care Team (Late st Contact Info) Description 07/05/2018 Transcribed Document [facility] 1 [place] [address] Provider, Jaswinder Zarco MD Social [...] Miscellaneous Notes * Cerner Conversion Note - [facility] Haroldo ProviderMD - 07/05/2018 7:59 PM EST [...] on filedocumented in this encounter Care Teams Fixing Carpenter Relationship Specialty Start Date End Date Farideh Gimenez PCP - General 02/26/25 documented as of this encounter
--- OUTSIDE RECORDS SUMMARY | 2025-05-27 15:48 | XMS_ITS | Encounter Summary ---
Author Organization [employer] ([place], [place], [place], [place], [place]) Address [address] [place] [address] Care Team Providers Care Coding Team Lead Name Role Phone Farideh Gimenez Primary Care Provider Unavailabl e Encounter Details Date Type Department Care Team (Late st Contact Info) Description 07/05/2018 Transcribed Document [facility] 1 [place] [address] Provider, Jaswinder Zarco MD Social [...] Notes * Cerner Conversion Note - [facility] Haroldo ProviderMD - 07/05/2018 9:32 AM EST Pediatric Growth Entered On: 07/05/2018 8:32 EST Performed On: 07/05/2018 8:32 EST by Antonia Ya Patient Steam And Power Supervisor Height and Weight, Clinical Dosing Height Source : Stated Height Entry Format : [place] Height, Feet : 5 ft(Converted to: 152 cm, 60 Inch) Height, Inches : 7 Inch(Converted to: 0 ft 7 Inch, 17.78 cm) Clinical Height : 170.18 cm Weight Source : Standing scale Weight Entry Format : [place] Clinical Dosing Weight : 130 kg Weight, Pounds : 286 lb Body Surface Area (BSA) : 2.36 m2 Body Mass Index : 44.9 kg/m2 (>HHI) [place] Body Weight : 65 kg Antonia Ya Patient Steam And Power Supervisor - 07/05/2018 8:32 EST documented in this encounter Plan of Treatment Not on file documented as of this encounter Visit Diagnoses Not on filedocumented in this encounter Care Teams Coding Team Lead Relationship Specialty Start Date End Date Farideh Gimenez PCP - General 02/26/25 documented as of this encounter
--- OUTSIDE RECORDS SUMMARY | 2025-05-27 15:48 | XMS_ITS | Encounter Summary ---
Author Organization [employer] ([place], [place], [place], [place], [place]) Address [address] [place] [address] Care Team Providers Care Insulator Tester Name Role Phone Farideh Gimenez Primary Care Provider Carlos Alberto [email or web address] Encounter Details Date Type Department Care Team (Late st Contact Info) Description 07/05/2018 Transcribed Document [facility] 1 [place] [address] Provider, Jaswinder Zarco MD Social [...] * Cerner Conversion Note - [facility] Haroldo ProviderMD - 07/05/2018 11:09 AM EST [...] Assisted by : Summer Long Nurse - other Ultra sound used during insertion : Yes Nerve Block Activity, Patient Tolerance : Good Peripheral Nerve Block Comment : pre op nerve block per surgeon request Peripheral Nerve Block End Date/Time : 07/05/2018 10:00 EST Summer Long, Nurse - other - 07/05/2018 10:09 EST Electronically signed by Ofelia, [facility] Conversion Agricultural Systems Specialist Cerner at 10/20/2022 12:35 PM CDT documented in this encounter Plan of Treatment Not on file documented as of this encounter Visit Diagnoses Not on filedocumented in this encounter Care Teams Insulator Tester Relationship Specialty Start Date End Date Farideh Gimenez PCP - General 02/26/25 documented as of this encounter
--- OUTSIDE RECORDS SUMMARY | 2025-05-27 15:48 | XMS_ITS | Encounter Summary ---
Author Organization [employer] ([place], [place], [place], [place], [place]) Address [address] [place] [address] Care Team Providers Care Furniture Sander Name Role Phone Farideh Gimenez Primary Care Provider Unavailabl e Encounter Details Date Type Department Care Team (Late st Contact Info) Description 06/30/2018 Transcribed Document [facility] 1 [place] [address] Provider, Jaswinder Zarco MD Social [...] Notes * Cerner Conversion Note - [facility] Haroldo ProviderMD - 06/30/2018 2:04 PM EST Care Management Assessment/Plan Entered On: 07/05/2018 17:21 EST Performed On: 07/05/2018 17:15 EST by Kasey Stauffer Social Worker-Wire Twisting Machine Operator Care Management Note Documentation Status Complete : Yes Kasey Stauffer Social Worker-Bsw - 07/05/2018 17:15 EST Info/List/Choices Provided Patient Offered Choice/Affiliations Explained : Yes List/Info Provided Pt/Fam/Support Person : Durable medical equipment, Home health Patient/Family Notified of Plan : Yes Kasey Stauffer Social Worker-Edgardo - 07/05/2018 17:15 EST Final Discharge Disposition [...] with choice for home health agency. Contacted [facility] and spoke with Phil on-call. Notified Phil of referral, and she request referral to be faxed into office. Phil reports they should be able to see pt tomorrow, and if not tomorrow then they will visit him on Tuesday. Referral faxed to [facility] ( ). Spoke with Amelie on-call for [email or web address] [facility]. Amelie request referral be faxed in to on-call line, and reports they can delivery walker this evening. Referral faxed to [facility] ( ). Discharge To Care Management : Home Health Services (Related/SOC within 3 days)-06 Kasey Stauffer, Launch Operator-Wire Twisting Machine Operator - 07/05/2018 17:15 EST documented in this encounter Plan of Treatment Not on file documented as of this encounter Visit Diagnoses Not on filedocumented in this encounter Care Teams Furniture Sander Relationship Specialty Start Date End Date Farideh Gimenez PCP - General 02/26/25 documented as of this encounter
--- OUTSIDE RECORDS SUMMARY | 2025-05-27 15:48 | XMS_ITS | CCD ---
Author Name Lizzy Skinner NP Address [address] [place] [address] Phone Organization [facility] Phone Care Team Providers Care Bad Work Gatherer Name Role Phone Lizzy Skinner NP Primary Care Provider Unavaila ble Unavailable Chronic Care Management Unavaila ble Summary Purpose [employer] Insurance Providers Payer name Policy type / Coverage type Covered libertarian ID Effective Begin Date Effective End Date [facility] [id number] Unknown Unknown Family history Father Diagnosis Age [...] Former User 10/09/[address]: [id number] Never drinks alco hol 10/09/2024 Illegal/Recreational drug [...] 10/09/2024 Active Coronary artery disease invo lving [place] coronary artery of [place] heart with angina pectoris ICD-10: I25.119 05/27/2022 [...] 62.5 mcg-25 mcg/actuation powder for inhalation RxNorm: 4559268 Take 1 Puff(s) Inhalation every day 5 01/02/20 26 Active lisinopril (PRINIVIL,ZESTRIL ) 20 MG tablet RxNorm: 333113 Take 1 Tablet(s) Oral every day 5 No Stop Date Active atorvastatin 20 mg tablet RxNorm: 574296 Take 1 Tablet(s) Oral every night at bedtime 5 01/02/20 26 Active furosemide (LASIX) 40 MG tablet RxNorm: 115720 Take 1 Tablet(s) Oral every day 5 No Stop Date Active sildenafil (VIAGRA) 50 MG tablet RxNorm: 543905 Take 1 Tablet(s) Oral every day as needed 5 No Stop Date Active sildenafil (VIAGRA) 50 MG tablet RxNorm: 667659 Take 1 Tablet(s) Oral every day as needed 5 09/13/19 25 Inactive furosemide (LASIX) 40 MG tablet RxNorm: 232704 Take 1 Tablet(s) Oral every day 5 09/26/19 25 Inactive atorvastatin (LIPITOR) 40 MG tablet RxNorm: 050650 TAKE 1 TABLET BY MOUTH ONCE DAILY AT NIGHT 5 No Stop Date Active lisinopril (PRINIVIL,ZESTRIL ) 20 MG tablet RxNorm: 711726 Take 1 Tablet(s) Oral every day 4 10/10/19 25 Inactive betamethasone valerate (VALISONE) 0.1 % ointment RxNorm: 076012 Apply 1 Application topically to the appropriate area as directed 2 (Two) Times a Day. 4 No Stop Date Active potassium chloride 10 MEQ CR tablet RxNorm: 475055 Take 1 Tablet(s) Oral every day . 4 No Stop Date Active amLODIPine (NORVASC) 10 MG tablet RxNorm: 339497 Take 1 Tablet(s) Oral every day . 4 No Stop Date Active nitroglycerin (NITROSTAT) 0.4 MG SL tablet RxNorm: 955483 Place 1 tablet under the tongue Every 5 (Five) Minutes As Needed for Chest Pain. Take no more than 3 doses in 15 minutes. 4 No Stop Date Active albuterol sulfate HFA 108 (90 Base) MCG/ACT inhaler RxNorm: 6794633 Inhale 2 puffs As Needed for Wheezing. 3 No Stop Date Active Medication Administered No Medication Administered data Results Observation Observation Code Item Item Code Result Date Service Location Hemoccult Screening Immunoassay G0328 Fecal Occult Blood Test (FOBT) Screening 64944-4 SEE COMMENT 11/14/19 [facility] [address] [place] [address] Procedures Procedure Codes Date Functional Status Assessed CPT-4: 1170F 10/09 MED LIST DOCD IN [facility] CPT-4: 1159F 10/09/2024 [facility] MEDS BY RX/DR IN [facility] CPT-4: 1160F 2024 Screening for clinical depre ssion is negative, follow-up plan not required CPT-4: G8510 10/09/2024 Most recent systolic blood pressure 130 to 139 mm CPT-4: 3075F 10/09/2024 Most recent diastolic blood pressure 80-89 mm hg CPT-4: 3079F 10/09/2024 Fecal Occult Blood Test (FOBT) Screening CPT-4: G0328 Unknown Vital Signs Date Vital 10/09/2024 Blood Pressure 1: 138/80 Code: 8480-6 BMI: 39.2 Code: 34646-3 Heart Rate 1: 103 bpm Height: 5'7 Code: 8302-2 Respiratory Rate: 16 bpm SpO2: 96% Temperature: 36.9 (C) / 98.4 (F) Weight: 250 lbs Code: 87157-0 Reason For Visit Reason For Visit Effective Dates Notes new patient welcome visit 10/09/2024 Encounters Encounter Performer Location Location Address Codes Date ([address]) Home or Residence Visit STRIPING MACHINE OPERATOR - Moderate Level, 60 mins Diagnosis: Encounter for general adult medical examination without abnormal findings[ICD10: Z00.00] Diagnosis: Chronic heart failure with preserved ejection fraction (HFpEF)[ICD10: I50.32] Diagnosis: Primary hypertension[ICD10 : I10] Diagnosis: Other emphysema[ICD10: J43.8] Diagnosis: Chronic pain of both knees[ICD10: M25.561] Diagnosis: Pain in right knee[ICD10: M25.561] Diagnosis: Pain in left knee[ICD10: M25.562] Diagnosis: Other chronic pain[ICD10: G89.29] Lizzy Skinner [place] [facility] [place] [address] CPT-4: 48861 10/09/2024 Plan of Care Planned Activity Notes Codes Status Date Appointment: Dian Kaur WPtel: [address] [place] [address] [id number] [facility] 11/26/2024 Visit Plan: This is a pleasant [...] Appointment: Lizzy Skinner WPtel: [address] [address] 10/09/2024 Patient Education: Patient Medication [...]
--- OUTSIDE RECORDS SUMMARY | 2025-05-27 15:48 | XMS_ITS | Encounter Summary ---
Author Organization [employer] ([place], [place], [place], [place], [place]) Address [address] [place] [address] Care Team Providers Care Jewelry Store Manager Name Role Phone Farideh Gimenez Primary Care Provider Unavailabl e Encounter Details Date Type Department Care Team (Late st Contact Info) Description 08/06/2019 Transcribed Document [facility] 1 [place] [address] Provider, Jaswinder Zarco MD Social [...] EDT by Bea Stroud RN Surgical Services [facility]. VETO Knee Survey 1. How severe is your knee stiffness after first wakening in the morning? : Severe 2. Twisting/pivoting on your knee : Moderate 3. Straightening knee fully : None 4. Going up or down stairs : Mild 5. Standing upright : None 6. Rising from sitting : Mild 7. Bending to floor/grape picker an object : Mild KOOS Raw Score [...] EDT Electronically signed by Jaswinder Gilbert Conversion Automotive Electrical Helper Cerner at 10/20/2022 12:35 PM CDT documented in this encounter Plan of Treatment Not on file documented as of this encounter Visit Diagnoses Not on filedocumented in this encounter Care Teams Jewelry Store Manager Relationship Specialty Start Date End Date Farideh Gimenez PCP - General 02/26/25 documented as of this encounter
--- OUTSIDE RECORDS SUMMARY | 2025-05-27 15:48 | XMS_ITS | Encounter Summary ---
Author Organization [employer] ([place], [place], [place], [place], [place]) Address [address] [place] [address] Care Team Providers Care Jewel Sorter Name Role Phone Farideh Gimenez Primary Care Provider Unavailabl e Encounter Details Date Type Department Care Team (Late st Contact Info) Description 07/05/2018 Transcribed Document [facility] 1 [place] [address] ProviderJaswinder MD Social History Tobacco Use Types Packs/Day Years Used Date Smoking Tobacco: Never Assessed Sex and Gender Information Value Date Recorded Sex Assigned at Male 11/24/2021 8:26 PM CDT Legal Sex Male 8:26 PM CDT Gender Identity Male 11/24/2021 8:26 PM CDT Sexual Orientation Not on file documented as of this encounter Miscellaneous Notes * Cerner Conversion Note - [facility] Haroldo ProviderMD - 07/05/2018 6:28 PM EST Education-(VTE) / (DVT) Entered On: 07/05/2018 19:00 EST Performed On: 07/05/2018 17:28 EST by Gisel Workman RN Teaching/Learning Assessment Barriers To Learning : None evident Gisel Workman, CRISTEL - 07/05/2018 19:00 EST Electronically signed by Ofelia [facility] Conversion Apple Checker Cerner at 10/20/2022 12:34 PM CDT documented in this encounter Plan of Treatment Not on file documented as of this encounter Visit Diagnoses Not on filedocumented in this encounter Care Teams Jewel Sorter Relationship Specialty Start Date End Date Farideh Gimenez PCP - General 02/26/25 documented as of this encounter
--- OUTSIDE RECORDS SUMMARY | 2025-05-27 15:48 | XMS_ITS | Encounter Summary ---
Author Organization [employer] ([place], [place], [place], [place], [place]) Address [address] [place] [address] Care Team Providers Care Property Investor Name Role Phone Farideh Gimenez Primary Care Provider Unavailabl e Encounter Details Date Type Department Care Team (Late st Contact Info) Description 07/05/2018 Transcribed Document [facility] Radiology [address] [place] [address] Provider, Jaswinder Zarco MD Social [...] Miscellaneous Notes * Cerner Conversion Note - [facility] Haroldo Goldstein MD - 07/05/2018 [...] on filedocumented in this encounter Care Teams Property Investor Relationship Specialty Start Date End Date Farideh Gimenez PCP - General 02/26/25 documented as of this encounter
--- OUTSIDE RECORDS SUMMARY | 2025-05-27 15:48 | XMS_ITS | Encounter Summary ---
Author Organization [employer] ([place], [place], [place], [place], [place]) Address [address] [place] [address] Care Team Providers Care Ram Car Operator Name Role Phone Farideh Gimenez Primary Care Provider Unavailabl e Encounter Details Date Type Department Care Team (Late st Contact Info) Description 07/05/2018 Transcribed Document [facility] Radiology [address] [place] [address] Provider, Jaswinder Zarco MD Social [...] Note - Jaswinder Goldstein MD - 07/05/2018 9:23 PM EST [...] Barley. Bulgur wheat. Millet. Bran muffins. Popcorn. [place] wafer crackers. ?? Vegetables Sweet potatoes. Spinach. Kale. Artichokes. Cabbage. Broccoli. Green peas. Carrots. Squash. ?? Fruits Berries. Pears. Apples. Oranges. Avocados. Prunes and raisins. Dried figs. ?? Meats and Other Protein Sources [place], kidney, palm, and soy beans. Split peas. [...] lionel has 11 g of protein. ?? Aztec seeds - 1 oz has 5.5 g [...] floor. ?? Place frequently used items in ogon-ql-rgmod places ?? Keep electrical cables out of [...] ? Using the bathroom. ? Using household entry level civil engineer or toxic chemicals. ? Touching or taking [...] other medicines or supplements? Many prescription and wbju-ncf-jagfira medicines can interfere with warfarin. Talk with your health care provider or your pharmacist before starting or stopping any new medicines. This includes tjky-ouv-ljwswtg vitamins, dietary supplements, herbal medicines, and pain medicines. Your warfarin dosage may need to be adjusted. ??? Some common ghwl-crk-htjphee medicines that may increase the risk of [...] that you work with a diet and sports nutritionist (dietitian). ??? Vitamin K decreases the effect [...] cooked. ??? Collards, raw or cooked. ??? [place] chard, raw or cooked. ??? Mustard greens, raw or cooked. ??? Turnip greens, raw or cooked. ??? Parsley, raw. ??? Broccoli, cooked. ??? Noodles, eggs, and spinach, enriched. ??? [place] sprouts, raw or cooked. ??? Beet greens, [...] diet. ??? You start or stop any tzbg-soh-ghikiwf medicine, prescription medicine, or dietary supplement. ??? [...] 08/11/2016 Elsevier Interactive Patient Education ? 2017 [employer] Warfarin Coagulopathy Introduction Warfarin (Coumadin?) coagulopathy [...] care provider before taking these. Prescription and tqjh-leo-xtgfsql medicine consistency is critical to warfarin management. [...] not take or discontinue any prescribed or rgar-rbd-czoopic medicine except on the advice of your [...] K include spinach, kale, broccoli, cabbage, greens, [place] sprouts, asparagus, bok gustavo, coleslaw, and parsley. [...] before making changes. ??? Work with a sports nutritionist (dietitian) to develop a meal plan that works best for you. High vitamin K foods Foods that are high in vitamin K contain more than 100 mcg (micrograms) per serving. These include: ??? Broccoli (cooked) ? ? cup has 110 mcg. ??? [place] sprouts (cooked) ? ? cup has 109 [...] ? ? cup has 444 mcg. ??? Taj[place] chard (cooked) ? ? cup has 287 [...] ? ? cup has 11 mcg. ??? [place] with peel (raw) ? ? cup has [...] poultry. ??? Milk and dairy products. ??? Aztec seeds. Actual amounts of vitamin K in [...] 08/18/2016 Elsevier Interactive Patient Education ? 2017 [employer] Electronically signed by Jaswinder Gilbert Conversion [employer] Craft Crewman Cerner at 10/20/2022 12:35 PM CDT documented in this encounter Plan of Treatment Not on file documented as of this encounter Visit Diagnoses Not on filedocumented in this encounter Care Teams Ram Car Operator Relationship Specialty Start Date End Date Farideh Gimenez PCP - General 02/26/25 documented as of this encounter
--- OUTSIDE RECORDS SUMMARY | 2025-05-27 15:48 | XMS_ITS | Encounter Summary ---
Author Organization [employer] ([place], [place], [place], [place], [place]) Address [address] [place] [address] Care Team Providers Care Pinmaker Name Role Phone Farideh Gimenez Primary Care Provider Unavailabl e Encounter Details Date Type Department Care Team (Late st Contact Info) Description 07/05/2018 Transcribed Document [facility] Radiology [address] [place] [address] Provider, Jaswinder Zarco MD Social [...] vacc inj 0.5 mL 0.5 mL, IntraMuscular, [id number] pregabalin 75 mg cap 75 mg 1 Cap, Oral, [id number] Continuous: (1) D5/LR 1,000 mL 1,000 mL, [...] Oral, Daily phenol 1.4% throat spray 5 [place], Oral, Q2H promethazine 25 mg/1 mL inj [...] Refill(s). Impression and Plan twt 40 mn documented in this encounter Plan of Treatment Not on file documented as of this encounter Visit Diagnoses Not on filedocumented in this encounter Care Teams Pinmaker Relationship Specialty Start Date End Date Farideh Gimenez PCP - General 02/26/25 documented as of this encounter
--- OUTSIDE RECORDS SUMMARY | 2025-05-27 15:48 | XMS_ITS | Encounter Summary ---
Author Organization [employer] ([place], [place], [place], [place], [place]) Address [address] [place] [address] Care Team Providers Care Sheet Ironworker Name Role Phone Farideh Gimenez Primary Care Provider Unavailabl e Encounter Details Date Type Department Care Team (Late st Contact Info) Description 07/05/2018 Transcribed Document [facility] Radiology [address] [place] [address] Provider, Jaswinder Zarco MD Social [...] [facility] Haroldo ProviderMD - 07/05/2018 5:41 PM EST [...] : Assistive Devices No Devices Recorded ASHOK RESTREPO PT - 07/05/2018 16:41 EST General Status [...] : 0-100 Comment (Comment: in sitting [ASHOK RESTREPO PT - 07/05/2018 16:41 EST] ) ASHOK RESTREPO, PT - 07/05/2018 16:41 EST LLE Active ROM : WFL Left LE Strength : WFL ASHOK RESTREPO PT - 07/05/2018 16:41 EST Functional Mobility Mobility Grid Bed Scooting : Supervision/set-up Supine to Sit : Supervision/set-up Sit to Stand : Rehab Minimal assistance (Comment: CGA with RW [ASHOK RESTREPO, PT - 07/05/2018 16:41 EST] ) Bed to Chair : Rehab Minimal assistance (Comment: CGA with RW [ASHOK RESTREPO, PT - 07/05/2018 16:41 EST] ) Stand [...] Steps with a Railing : A [facility] Basic Mobility Raw Score : 20 AM-[facility] Basic Mobility Standardized Score : 47.67 AM-[facility] Basic Mobility CMS 0-100% Score : 35.83 % ASHKO RESTREPO, PT - 07/05/2018 16:41 EST Image 1 - Images currently included in the form version of this document have not been included in the text rendition version of the form. Functional Limitation Reporting, PT Functional Limitation Visit Type, PT : Initial evaluation Severity Determination Method, PT : Clinical Judgment, [facility] Basic Mobility Mobility G8978 - Current Mod, [...] Assessment : Patient will need family care 24/ for next 2-3 days due to mild [...] Training Each 15 Min : 1 PT Eval Low Complexity : 1 ASHOK RESTREPO PT - 07/05/2018 16:41 EST documented in this encounter Plan of Treatment Not on file documented as of this encounter Visit Diagnoses Not on filedocumented in this encounter Care Teams Sheet Ironworker Relationship Specialty Start Date End Date Farideh Gimenez PCP - General 02/26/25 documented as of this encounter
--- OUTSIDE RECORDS SUMMARY | 2025-05-27 15:48 | XMS_ITS | Encounter Summary ---
Author Organization [employer] ([place], [place], [place], [place], [place]) Address [address] [place] [address] Care Team Providers Care Global Clinical Leader Name Role Phone PernellFarideh Primary Care Provider Unavailabl e Encounter Details Date Type Department Care Team (Late st Contact Info) Description 07/05/2018 Transcribed Document [facility] Radiology [address] [place] [address] Provider, Jaswinder Zarco MD Social [...] Note - [facility] Haroldo ProviderMD - 07/05/2018 9:23 PM EST [facility] [address] , [place] [address] Patient Copy Patient Information: Name: MARTA RAZO Current Date: 07/05/2018 20:23:46 : 1955 Patient Address: [address] [place] [id number] Patient Attending Physician: BRIDGETTE ARTHUR MD-INT Primary Care Provider: EDITH LUONG MD Primary Care Provider Discharge Diagnosis: obstructive sleep apnea; COPD (chronic obstructive pulmonary disease); Hypertension; Morbid obesity with BMI of 40.0-44.9, adult; Status post unicompartmental knee replacement, right; Unilateral primary osteoarthritis, right knee Weight on Admission: 282 lb, 0 oz Comment: Follow-up Instructions: With: Address: When: YESSENIA VILLAGOMEZ [address] [facility] [address] [place] [address] [employer] (1SKURA In 13 days 07/18/2018 Comments: Appointment has been made Discharge Instructions: Medical Equipment for Home Use: [facility] [facility] for [phone] Home Health Services: [facility] [phone] Immunizations Documented During Stay: No Immunizations Found [...] before making changes. ??? Work with a nutritionist public health (dietitian) to develop a meal plan that works best for you. High vitamin K foods Foods that are high in vitamin K contain more than 100 mcg (micrograms) per serving. These include: ??? Broccoli (cooked) ? ? cup has 110 mcg. ??? [place] sprouts (cooked) ? ? cup has 109 [...] ? ? cup has 444 mcg. ??? [place] chard (cooked) ? ? cup has 287 [...] ? ? cup has 11 mcg. ??? [place] with peel (raw) ? ? cup has 9 mcg. ??? Grapes ? ? cup has 12 mcg. ??? [place] ? 1 medium has 9 mcg. ??? [...] poultry. ??? Milk and dairy products. ??? [place] seeds. Actual amounts of vitamin K in [...] 03/13/2010 Document Revised: 12/05/2016 Document Reviewed: 08/18/2016 [employer] Interactive Patient Education ? 2017 [employer] What You Need to Know About [...] other medicines or supplements? Many prescription and ywyl-ijb-hglpbmw medicines can interfere with warfarin. Talk with your health care provider or your pharmacist before starting or stopping any new medicines. This includes weun-vrx-rflkejb vitamins, dietary supplements, herbal medicines, and pain medicines. Your warfarin dosage may need to be adjusted. ??? Some common ipeh-qza-eqdluji medicines that may increase the risk of [...] that you work with a diet and nutritionist public health (dietitian). ??? Vitamin K decreases the effect [...] cooked. ??? Collards, raw or cooked. ??? [place] chard, raw or cooked. ??? Mustard greens, raw or cooked. ??? Turnip greens, raw or cooked. ??? Parsley, raw. ??? Broccoli, cooked. ??? Noodles, eggs, and spinach, enriched. ??? [place] sprouts, raw or cooked. ??? Beet greens, [...] diet. ??? You start or stop any sfwe-ujq-fgjilny medicine, prescription medicine, or dietary supplement. ??? [...] 08/11/2016 Elsevier Interactive Patient Education ? 2017 [employer] Warfarin Coagulopathy Introduction Warfarin (Coumadin?) coagulopathy [...] care provider before taking these. Prescription and dbuw-cgd-unpbrdo medicine consistency is critical to warfarin management. [...] not take or discontinue any prescribed or rytp-ilf-nbopvvy medicine except on the advice of your [...] K include spinach, kale, broccoli, cabbage, greens, [place] sprouts, asparagus, bok gustavo, coleslaw, and parsley. [...] Barley. Bulgur wheat. Millet. Bran muffins. Popcorn. [place] wafer crackers. ?? Vegetables Sweet potatoes. Spinach. Kale. Artichokes. Cabbage. Broccoli. Green peas. Carrots. Squash. ?? Fruits Berries. Pears. Apples. Oranges. Avocados. Prunes and raisins. Dried figs. ?? Meats and Other Protein Sources [place], kidney, palm, and soy beans. Split peas. [...] lionel has 11 g of protein. ?? [place] seeds - 1 oz has 5.5 g [...] floor. ?? Place frequently used items in omaq-bt-djpnl places ?? Keep electrical cables out of [...] ? Using the bathroom. ? Using household optimization specialist or toxic chemicals. ? Touching or taking [...] What is aspirin? Aspirin is a salicylate (nw-MID-ky-ate). It works by reducing substances in the [...] may report side effects to FDA at 3-600-XZD-0478. What other drugs will affect aspirin? Ask [...] drugs may affect aspirin, including prescription and zper-gqv-xjcproo medicines, vitamins, and herbal products. Not all [...] to ensure that the information provided by [employer]') is accurate, up-to-date, and complete, but no guarantee is made to that effect. Drug information contained herein may be time sensitive. [employer] information has been compiled for use by healthcare practitioners and consumers in the [place] and therefore [employer] does not warrant that uses outside of the [place] are appropriate, unless specifically indicated otherwise. [employer] drug information does not endorse drugs, diagnose patients or recommend therapy. [employer] drug information is an informational resource designed [...] effective or appropriate for any given patient. [employer] does not assume any responsibility for any aspect of healthcare administered with the aid of information [employer] provides. The information contained herein is not intended to cover all possible uses, directions, precautions, warnings, drug interactions, allergic reactions, or adverse effects. If you have questions about the drugs you are taking, check with your doctor, nurse or pharmacist. Copyright 8681-9493 [employer]. Version: 15.. Revision Date: 08/29/2017. gabapentin ([place] [...] are a day sleeper or work a shift mgr. Some people have thoughts about suicide while [...] may report side effects to FDA at 4-789-QJY-4713. What other drugs will affect gabapentin? Taking gabapentin with other drugs that make you sleepy can worsen this effect. Ask your doctor before taking a sleeping pill, narcotic medication, muscle relaxer, or medicine for anxiety, depression, or seizures. Other drugs may interact with gabapentin, including prescription and npun-fsa-hwyzemb medicines, vitamins, and herbal products. Tell your [...] to ensure that the information provided by [employer]') is accurate, up-to-date, and complete, but no guarantee is made to that effect. Drug information contained herein may be time sensitive. [employer] information has been compiled for use by healthcare practitioners and consumers in the [place] and therefore [employer] does not warrant that uses outside of the [place] are appropriate, unless specifically indicated otherwise. [employer]'s drug information does not endorse drugs, diagnose patients or recommend therapy. [facility] drug information is an informational resource designed [...] effective or appropriate for any given patient. [facility] does not assume any responsibility for any aspect of healthcare administered with the aid of information [facility] provides. The information contained herein is not intended to cover all possible uses, directions, precautions, warnings, drug interactions, allergic reactions, or adverse effects. If you have questions about the drugs you are taking, check with your doctor, nurse or pharmacist. Copyright 5744-5643 [employer]. Version: 14.01. Revision Date: 03/08/2017. oxycodone (ox [...] The extended-release form of oxycodone is for khvcsy-xin-spdwb treatment of pain and should not be [...] against the law. Stop taking all other voixld-ofk-xakym narcotic pain medicines when you start taking [...] oxycodone? Electronically signed by Jaswinder Gilbert Conversion Sales Force Administrator Cerner at 10/20/2022 12:34 PM CDT documented in this encounter Plan of Treatment Not on file documented as of this encounter Visit Diagnoses Not on filedocumented in this encounter Care Teams Global Clinical Leader Relationship Specialty Start Date End Date Farideh Gimenez PCP - General 02/26/25 documented as of this encounter
--- OUTSIDE RECORDS SUMMARY | 2025-05-27 15:48 | XMS_ITS | Encounter Summary ---
Author Organization [employer] ([place], [place], [place], [place], [place]) Address [address] [place] [address] Care Team Providers Care Radiology Practitioner Assistant Name Role Phone Farideh Gimenez Primary Care Provider Unavailabl e Encounter Details Date Type Department Care Team (Late st Contact Info) Description 07/05/2018 Transcribed Document [facility] Radiology [address] [place] [address] Provider, Jaswinder Zarco MD Social [...] Notes * Cerner Conversion Note - dillan Goldstein MD - 07/05/2018 1:37 PM EST [facility] OR IntraOp Summary Primary Physician: YESSENIA VILLAGOMEZ JR, JR, MD-ORT Finalized Date/Time: 07/05/18 14:03:51 Pt. Name: MARTA MCDOWELL D.O.B./Sex: 1955 Male Med Rec #: [id number] Physician: YESSENIA VILLAGOMEZ JR, JR, MD-ORT Financial #: [id number] Pt. Type: O Room/Bed: EAS/3 Admit/Disch: 07/05/18 04:47:00 - [place] [facility] [place] Attendance Entry 1 Entry 2 Entry 3 Case Attendee YESSENIA VILLAGOMEZ JR, JR, Vicky Bravo, Rn Sharp, Jesse MD-ORT Role Performed Surgeon/Proceduralist, Seo Engineer, First Scrub, First First Time In 07/05/18 12:03:00 07/05/18 12:03:00 07/05/18 12:03:00 Time Out 07/05/18 13:27:00 07/05/18 13:59:00 07/05/18 13:59:00 Procedure Knee Unicompartmental Knee Unicompartmental Knee Unicompartmental Replacement Replacement Replacement Other Attendee Superficial Wound Closed By: Last Modified By: Vicky Bravo Rn Daskalakis, Hope, Vicky Callaway, Giovanni 07/05/18 13:59:16 07/05/18 13:59:16 07/05/18 13:59:16 Entry 4 Entry 5 Entry 6 Case Attendee OTHER, ATTENDEE #1 Pamella Duke, OTHER, ATTENDEE #2 Rn-Surgery Role Performed Student Seo Engineer, First Vendor Time In 07/05/18 12:03:00 07/05/18 11:24:00 07/05/18 12:03:00 Time Out 07/05/18 13:59:00 07/05/18 11:42:00 07/05/18 13:42:00 Procedure Knee Unicompartmental Knee Unicompartmental Knee Unicompartmental Replacement Replacement Replacement Other Attendee RIANA PUGH TATIANNA BRIGHT -- BIOMET Superficial Wound Closed By: Last Modified By: Vicky Bravo Rn Daskalakis, Hope, Vicky Callaway, Giovanni 07/05/18 13:59:16 07/05/18 13:59:16 07/05/18 13:59:16 Entry 7 Entry 8 Entry 9 Case Attendee LIANA RIVERA MD PARKER, FARIBA, Livier Powell, Speech Therapy Assistant Role Performed Anesthesiologist Hedis Abstractor, First Scrub, First Time In 07/05/18 12:03:00 07/05/18 12:03:00 07/05/18 12:03:00 Time Out 07/05/18 13:05:00 07/05/18 13:59:00 07/05/18 12:15:00 Procedure Knee Unicompartmental Knee Unicompartmental Knee Unicompartmental Replacement Replacement Replacement Other Attendee BREAK Superficial Wound Closed By: Daquan Modified By: Vicky Bravo Rn Daskalakis, Hope, Rn Vicky Bravo Rn 07/05/18 13:59:16 07/05/18 13:59:16 07/05/18 13:59:16 Entry 10 Case Attendee AMERICO CASILLAS, SENIOR ART DIRECTOR Role Performed SENIOR ART DIRECTOR/Nurse Wood Tile Installation Helper Time In 07/05/18 13:04:00 Time Out 07/05/18 13:59:00 Procedure Knee Unicompartmental Replacement Other Attendee Superficial Wound Closed By: Daquan Modified By: Vicky Bravo Rn 07/05/18 13:59:16 [facility] IntraOp Case Attendance Audit 07/05/18 13:59:16 Architect Marine: [id number] Modifier: [id number] <*> Procedure Knee Unicompartmental Replacement 2 [...] <*> Procedure Knee Unicompartmental Replacement 07/05/18 13:42:58 Architect Marine: [id number] Modifier: [id number] <+> Time Out 6 <*> Procedure Knee Unicompartmental Replacement 07/05/18 13:27:37 Architect Marine: [id number] Modifier: [id number] <+> Time Out 1 <*> Procedure Knee Unicompartmental Replacement 07/05/18 13:08:34 Architect Marine: [id number] Modifier: [id number] <+> Time Out 7 <*> Procedure Knee Unicompartmental Replacement <+> 10 Case Attendee <+> 10 Role Performed <+> 10 Time In <+> 10 Procedure 07/05/18 12:51:55 Architect Marine: [id number] Modifier: [id number] <+> Time Out 9 <*> Procedure Knee Unicompartmental Replacement 07/05/18 12:44:11 Architect Marine: [id number] Modifier: [id number] <+> 1 Time In <+> 1 Procedure [...] <*> Procedure Knee Unicompartmental Replacement 07/05/18 11:43:48 Architect Marine: [id number] Modifier: [id number] <+> 8 Case Attendee <+> 8 Role Performed <+> 8 Procedure <+> 9 Case Attendee <+> 9 Role Performed <+> 9 Procedure <+> 9 Other Attendee 07/05/18 11:42:34 Architect Marine: [id number] Modifier: [id number] <+> Time Out 5 <*> Procedure [...] Time 07/05/18 13:57:00 Last Modified By: Vicky Bravo, Giovanni 07/05/18 13:59:14 [facility] IntraOp Case Times Audit 07/05/18 13:59:14 Architect Marine: [id number] Modifier: [id number] <+> 1 Out Room Time <+> 1 [...] Count Performed By Vicky Bravo Rn Daskalakis, Hope, Rn (RN) Last Modified By: Vicky Bravo Rn Daskalakis, Hope, Rn 07/05/18 11:44:12 07/05/18 13:42:43 [facility] IntraOp Counts Verification Audit 07/05/18 13:42:43 Architect Marine: [id number] Modifier: [id number] <+> 2 Procedure <+> 2 Count Type [...] IntraOp Departure from OR Audit 07/05/18 13:24:18 Architect Marine: [id number] Modifier: [id number] <*> Patient Transport Accompanied by LIANA RIVERA MD [facility] IntraOp Dressing and Packing Entry 1 Type Dressing Location RIGHT KNEE Wound Dressing Item Melchor, Steristrip Supplemental Limb immobilizer, Cold Applications pack Applied By FARIBA MEREDITH FA Other Comments SILVER MEPILEX DRESSING APPLIED. Last Modified By: Vicky Bravo Rn 07/05/18 14:03:50 [facility] IntraOp Dressing and Packing Audit 07/05/18 14:03:50 Architect Marine: [id number] Modifier: [id number] <*> Wound Dressing Item Melchor, Webril, 4x4's, Steristrip 07/05/18 13:51:20 Architect Marine: [id number] Modifier: [id number] <*> Wound Dressing Item Melchor, Webril, 4x4's 07/05/18 13:42:18 Architect Marine: [id number] Modifier: [id number] 1 <*> Wound Dressing Item Melchor, Webril, [...] Modified By: Vicky Bravo Rn 07/05/18 11:26:03 E IntraOp General Case Avp 1 [place] Information [place] [facility] [place] 1 Room Verified Yes [...] COMP TIB UNIKNEE OX RM Identification P [id number] [id number] Description Implant Quantity 1 1 1 Implant Site RIGHT KNEE RIGHT KNEE RIGHT KNEE Implant Identification Model Number Implant Identification Serial Number Implant [id number] Identification Lot Number Implant [place]:[employer] Biomet:[employer] Identification Orthopaedics Oil Burner Installer Name: Implant [id number] Identification Catalog Number Implant Size Implant Has an Yes Yes Yes Expiration Date Implant Expiration 08/27/20 04/18/28 09/16/25 Date Wasted Radioactive Material Time Implanted Tissue Implant Continue for Tissue Implant Documentation Tissue Identification Number Graft Prep Per Oil Burner Installer Instructions: Tissue Preparation Method: Reconstitution Solution: Reconstitution Solution Lot Number Reconstitution Solution Expiration Date: Thawing Solution Thawing Solution Lot Number Thawing Solution Expiration Date Preparation Materials, Other Preparation Materials, Other Lot Number Preparation Materials, Other Expiration Date Tissue Prepared/Processed By Oil Burner Installer Paperwork Completed Implant Type Comment Last Modified By: Vicky Bravo Rn Daskalakis, Hope, Rn Daskalakis, Hope, Rn 07/05/18 13:12:20 07/05/18 13:12:20 07/05/18 13:12:20 Entry 4 Type Implant (Synthetic) Implant Log Implant Type Hardware Tissue Implant Type Implant BEARING MENISCAL Identification ALLAN DUNN [id number] Description Implant Quantity 1 Implant Site RIGHT KNEE Implant Identification Model Number Implant Identification Serial Number Implant [id number] Identification Lot Number Implant Biomet:[employer] Identification Oil Burner Installer Name: Implant [id number] Identification Catalog Number Implant Size Implant Has an Yes Expiration Date Implant Expiration 11/05/21 Date Wasted Radioactive Material Time Implanted Tissue Implant Continue for Tissue Implant Documentation Tissue Identification Number Graft Prep Per Oil Burner Installer Instructions: Tissue Preparation Method: Reconstitution Solution: Reconstitution Solution Lot Number Reconstitution Solution Expiration Date: Thawing Solution Thawing Solution Lot Number Thawing Solution Expiration Date Preparation Materials, Other Preparation Materials, Other Lot Number Preparation Materials, Other Expiration Date Tissue Prepared/Processed By Oil Burner Installer Paperwork Completed Implant Type Comment Last Modified By: Vicky Bravo Rn 07/05/18 13:24:00 [facility] IntraOp Implant Log Audit 07/05/18 13:24:00 Architect Marine: [id number] Modifier: [id number] <+> 4 Implant Identification Description <+> 4 Implant Identification Lot Number <+> 4 Implant Identification Oil Burner Installer Name: <+> 4 Implant Expiration Date <+> [...] 2 Medication/Irrigant hydrogen peroxide 3% - ANESTHETIC COCKTAIL-VILLAGOMZE [id number] Combo Med List Time Administered Route of [...] Vicky Bravo Rn, LIANA RIVERA MD, FARIBA MEREDITH FA Position Verified Positioning Yes Verified by Anesthesia Positioning Yes Verified by Surgeon Last Modified By: Vicky Bravo Rn 07/05/18 12:53:12 General Comments: [facility] LEG MCDONOUGH [facility] IntraOp Patient Positioning Audit 07/05/18 12:53:12 Architect Marine: [id number] Modifier: [id number] <*> Procedure Knee Unicompartmental Replacement 1 [...] Intra Op Sign Out Audit 07/05/18 13:59:25 Architect Marine: [id number] Modifier: [id number] <+> 1 RN Sign Out Signature Date/Time [...] [facility] IntraOp Surgical Procedures Audit 07/05/18 13:59:15 Architect Marine: [id number] Modifier: [id number] <+> 1 Stop [facility] IntraOp Temp Regulation [...] 13:55:59 [facility] IntraOp Tourniquet Audit 07/05/18 13:55:59 Architect Marine: [id number] Modifier: [id number] <+> 1 Stop Time 07/05/18 12:43:28 Architect Marine: [id number] Modifier: [id number] 1 <*> Applied By Vicky Bravo Rn 1 <+> Removed By 1 <+> Start Time Case Comments <None> Finalized By: Vicky Bravo Rn Document Signatures Signed By: Vicky Bravo Rn 07/05/18 14:03 documented in this encounter Plan of Treatment Not on file documented as of this encounter Visit Diagnoses Not on filedocumented in this encounter Care Teams Radiology Practitioner Assistant Relationship Specialty Start Date End Date Farideh Gimenez PCP - General 02/26/25 documented as of this encounter
--- OUTSIDE RECORDS SUMMARY | 2025-05-27 15:48 | XMS_ITS | Encounter Summary ---
Author Organization [employer] ([place], [place], [place], [place], [place]) Address [address] [place] [address] Care Team Providers Care Ship'S Electronic Warfare Officer Name Role Phone Farideh Gimenez Primary Care Provider Unavailabl e Encounter Details Date Type Department Care Team (Late st Contact Info) Description 07/05/2018 Transcribed Document [facility] [address] [place] [address] Provider, Jaswinder Zarco MD Social [...] Notes * Cerner Conversion Note - [facility] ProviderMD - 07/05/2018 8:12 PM EST [...] Gisel Workman RN - 07/05/2018 19:12 EST documented in this encounter Plan of Treatment Not on file documented as of this encounter Visit Diagnoses Not on filedocumented in this encounter Care Teams Ship'S Electronic Warfare Officer Relationship Specialty Start Date End Date Farideh Gimenez PCP - General 02/26/25 documented as of this encounter
--- OUTSIDE RECORDS SUMMARY | 2025-05-27 15:48 | XMS_ITS | Encounter Summary ---
Author Organization [employer] ([place], [place], [place], [place], [place]) Address [address] [place] [address] Care Team Providers Care Human Resources Benefits Assistant Name Role Phone Farideh Gimenez Primary Care Provider Unavailabl e Encounter Details Date Type Department Care Team (Late st Contact Info) Description 07/05/2018 Transcribed Document [facility] Radiology [address] [place] [address] Provider, Jaswinder Zarco MD Social [...] Miscellaneous Notes * Cerner Conversion Note - [facility] [place] ProviderMD - 07/05/2018 1:37 PM EST [facility] OR PreOp Summary Primary Physician: YESSENIA VILLAGOMEZ JR, JR, MD-ORT Finalized Date/Time: 07/05/18 17:51:21 Pt. Name: DUNG MARTA AUGIE SimmonsB./Sex: 1955 Male Med Rec #: [id number] Physician: BRIDGETTE ARTHUR MD-INT Financial #: [id number] Pt. Type: O Room/Bed: 507/1 Admit/Disch: 07/05/18 04:47:00 - Institution: [facility] [place] PreOp Case Times Entry 1 In Preop 07/05/18 07:20:00 Ready for Holding n/a Room Patient Ready for 07/05/18 08:58:00 Surgery Patient Out of Preop 07/05/18 11:58:00 Patient Out of n/a Holding Room Last Modified By: JOSE NY RN 07/05/18 17:51:17 [facility] PreOp Case Times Audit 07/05/18 17:51:17 Lacing Operator: [id number] Modifier: [email or web address] <+> 1 In Preop <+> 1 Patient Ready for Surgery Finalized By: JOSE NY, RN Document Signatures Signed By: JOSE NY RN 07/05/18 17:51 documented in this encounter Plan of Treatment Not on file documented as of this encounter Visit Diagnoses Not on filedocumented in this encounter Care Teams Human Resources Benefits Assistant Relationship Specialty Start Date End Date Farideh Gimenez PCP - General 02/26/25 documented as of this encounter
--- OUTSIDE RECORDS SUMMARY | 2025-05-27 15:48 | XMS_ITS | Encounter Summary ---
Author Organization [employer] ([place], [place], [place], [place], [place]) Address [address] [place] [address] Care Team Providers Care Community Living Specialist Name Role Phone Farideh Gimenez Primary Care Provider Unavailabl e Encounter Details Date Type Department Care Team (Late st Contact Info) Description 06/30/2018 Transcribed Document [facility] Radiology [address] [place] [address] Provider, Jaswinder Zarco MD Social [...] Miscellaneous Notes * Cerner Conversion Note - [facility] [place] ProviderMD - 06/30/2018 12:41 PM [...] 63 CXR- Atelectasis vs fibrotic changes, NAD documented in this encounter Plan of Treatment Not on file documented as of this encounter Visit Diagnoses Not on filedocumented in this encounter Care Teams Community Living Specialist Relationship Specialty Start Date End Date Farideh Gimenez PCP - General 02/26/25 documented as of this encounter
== END 2025-05-27 23:59 | disposition home or self-care (01) ==
LOC: RT 15:46
PROVIDERS: PCP Family Medicine; Visit Provider Family Medicine
DX: M79.89 Other specified soft tissue disorders (principal); M79.605 Pain in left leg; Z98.890 Other specified postprocedural states
CPT/HCPCS: 93971